=== PATIENT | male | born 1980 | race Caucasian/White ===

== ENCOUNTER → 2020-03-26 10:56 | Outpatient (BNVA) | payer MEDICAID, SELFPAY | PROVIDERS: PCP Internal Medicine; Visit Provider Nurse Practitioner Gerontology ==

== ENCOUNTER → 2021-12-07 13:58 | Outpatient (REF) | payer MEDICAID, SELFPAY | LOC: HO.SL 13:58 | PROVIDERS: PCP Internal Medicine; Visit Provider Internal Medicine | DX: G47.33 Obstructive sleep apnea (adult) (pediatric) (principal) | CPT/HCPCS: 95806 ==

== ENCOUNTER → 2022-04-08 13:00 | Outpatient (BNVA) | payer MEDICAID, SELFPAY | PROVIDERS: PCP Internal Medicine; Visit Provider Nurse Practitioner Family | DX: G47.33 Obstructive sleep apnea (adult) (pediatric) (principal); E11.9 Type 2 diabetes mellitus without complications; I10 Essential (primary) hypertension; E66.01 Morbid (severe) obesity due to excess calories; Z68.41 Body mass index [BMI] 40.0-44.9, adult; Z99.89 Dependence on other enabling machines and devices | CPT/HCPCS: 99202 ==

== ENCOUNTER 2022-04-11 09:07 | Outpatient (REF) | payer MEDICAID, SELFPAY ==
--- NOTE | ~2022-04-11 | CT_ITS ---
EXAMINATION: CT ABDOMEN AND PELVIS WITH CONTRAST CLINICAL INFORMATION: Epigastric pain COMPARISON: Previous CT from 2010 and abdominal ultrasound August 2011 TECHNIQUE: Multidetector volumetric images were obtained from the superior aspect of the liver through the pubic symphysis following administration 85 mL of Omnipaque 350 intravenous contrast. Sagittal and coronal reformatted images were obtained on the technologist's workstation. Oral contrast: Yes This CT examination was performed using dose optimization techniques as appropriate, variously including the following: *Automated exposure control *Adjustment of mA and/or kV according to patient size (this includes techniques or standardized protocols for targeted exams where dose is matched to indication/reason for exam; i.e. extremities or head) *Use of iterative reconstruction technique DLP: 1164 mGy-cm FINDINGS: LUNG BASES: The visualized lung bases are unremarkable. LIVER, GALLBLADDER, AND BILIARY TREE: The liver is normal in size, shape, and attenuation. No focal hepatic lesion or biliary ductal dilatation is present. The gallbladder has been removed. PANCREAS: Unremarkable. SPLEEN: Small calcification suggestive of old granulomatous disease.. ADRENAL GLANDS: Unremarkable. KIDNEYS AND URETERS: The kidneys are normal in size, shape, and attenuation. Question small 1 mm right lower pole renal stone. No hydronephrosis, hydroureter, or perinephric stranding. BLADDER: Unremarkable. GASTROINTESTINAL TRACT: Mild diverticulosis. The small and large bowel are otherwise unremarkable. The appendix is unremarkable. The stomach is unremarkable. ABDOMINAL WALL: Diastasis of the rectus muscles and small umbilical hernia containing fat. LYMPH NODES: Normal. VASCULAR: Unremarkable. PELVIC VISCERA: Unremarkable. OSSEOUS STRUCTURES: Degenerative changes of the spine and hip joints CT/CT abdomen pelvis w IV con IMPRESSION: Mild diverticulosis of the colon. Question small nonobstructing right renal stone. Small umbilical hernia containing fat. Fleischner guidelines were followed.
[2022-04-11] MEDS: iohexoL 350 MG/ML 100 ML INFUS..BTL IV (09:56)
== END 2022-04-11 09:08 | disposition home or self-care (01) ==
LOC: HO.CT 09:07
PROVIDERS: PCP Internal Medicine; Visit Provider Internal Medicine
DX: R10.13 Epigastric pain (principal); K43.9 Ventral hernia without obstruction or gangrene; E11.9 Type 2 diabetes mellitus without complications
CPT/HCPCS: 74177; Q9967

== ENCOUNTER → 2022-05-11 20:30 | Outpatient (REF) | payer MEDICAID, SELFPAY | LOC: HO.SL 20:30 | PROVIDERS: PCP Internal Medicine; Visit Provider Nurse Practitioner Family | DX: G47.33 Obstructive sleep apnea (adult) (pediatric) (principal) | CPT/HCPCS: 95811 ==

== ENCOUNTER → 2022-06-17 10:05 | Outpatient (REF) | payer MEDICAID, SELFPAY ==
--- NOTE | 2022-06-17 10:12 | CA_ITS ---
Transthoracic Echocardiogram Patient (Last, First, Middle): Javier Charles J Gender: Male Date of : 1980 Age: 41 Procedure Date: 06/17/2022 Procedure Type: Transthoracic Echocardiogram Location: OP Height: 187.96 cm Weight: 151.96 kg BSA: 2.71 m2 Heart Rate: bpm BP: 138 / 82 mmHg Guest Attendant: Referring MD: Camryn Ramos CNP Symptoms: G47.31 - Primary central sleep apnea Study Quality: Fair on Apical views ECG Rhythm: Sinus Conclusions: - The left ventricular systolic function is normal. The calculated ejection fraction is 70% by biplane method. - No obvious valvular pathology seen on this study. Findings Procedure Information Contrast agent, definity, is being given per protocol without apparent complications. Left Ventricle Normal left ventricular cavity size. There is mildly increased left ventricular wall thickness. The left ventricular systolic function is normal. The calculated ejection fraction is 70% by biplane method. There is no evidence of regional wall motion abnormalities. Diastolic function is normal for age. Right Ventricle Mildly increased right ventricular cavity size. There is normal right ventricular systolic function. Atria Both atria are normal in size. Aortic Valve The aortic valve was not well visualized. There is no aortic valve stenosis. There is no aortic valve regurgitation. Mitral Valve The mitral valve appears normal. There is no mitral valve regurgitation. There is no mitral valve stenosis. Pulmonic Valve The pulmonic valve is likely normal. Tricuspid Valve There is mild tricuspid valve regurgitation. There is no evidence of pulmonary hypertension. Great Vessels The asc aorta is normal in size. Venous The inferior vena cava is normal in size and collapses greater than 50% with inspiration. Pericardium/Pleural There is no evidence of pericardial effusion. Prior Study Comparison No prior study available for comparison. Recommendations, Care & Conclusions No obvious valvular pathology seen on this study. Measurements 2D Linear Measurements IVSd: 1.27 0.6-0.9/0.6-1.0 cm LVIDd: 4.97 3.9-5.3/4.2-5.9 cm LVIDd Index: 1.83 2.4-3.2/2.2-3.1 cm/m2 LVIDs: 3.37 2.0-3.6 cm LVPWd: 1.21 0.7-1.1 cm Ao Root: 3.30 2.1-3.5 cm LA Diam: 4.90 2.7-3.8/3.0-4.0 cm LAIDs Index: 1.81 1.5-2.3 cm/m2 LV Mass: 302.36 67-162/88-224 g LV Mass Index: 111.57 43-95/49-115 g/m2 LVOT Diam: 2.10 3.0+(-)1.3 cm 2D Systolic Function EF 4C: 71.80 >55% EF 2C: 66.70 >55% EF BiP: 70.00 >55% Mitral Valve MV Pk E: 0.96 MV PK A: 0.90 MV Decel Time: 221.00 E/A: 1.10 E'Lateral: 9.79 E'Medial: 6.85 E/E' Med: 14.10 E/E' Lat: 9.80 PHT: 65.00 MVA PHT: 3.38 Decel [place]: 4.36 Aortic Valve AoV Pk Walker: 1.56 AoV Mn Walker: 0.95 AoV VTI: 0.36 AoV Pk Grad: 10.00 Aov Mn Grad: 5.00 TREY Cont.VTI: 2.81 LVOT LVOT Pk Walker: 1.23 LVOT Mn Walker: 0.86 LVOT VTI: 0.29 LVOT Pk Grad: 6.00 LVOT Mn Grad: 3.00 LVOT Diam: 2.10 LVOT Area: 3.46 Diastolic Function MV Pk E: 0.96 MV Pk A: 0.90 E/A: 1.10 E'Medial: 6.85 E/E' Med: 14.10 E' Laterial: 9.79 E/E' Lat: 9.80 Right Ventricle TAPSE (mm): 28.00 TVS' Walker: 13.00 Tricuspid Valve TR Pk Walker: 2.75 TR Pk Grad: 30.00 RA Press: 3.00 RVSP: 33.00 Great Vessels Aorta Ao Root-2D: 3.30 2.0-3.7 cm Ao Asc: 3.30 2.1-3.4 cm Pulmonary Valve PV Pk Walker: 1.10 Peak PV Grad: 5.00 Updated in Other Vendor System with Status of Final Wade Martinez MD electronically signed on 06/19/2022 12:21:31 PM with status of Final
== END ==
LOC: HO.CARD 10:05
PROVIDERS: PCP Internal Medicine; Visit Provider Nurse Practitioner Family
DX: I10 Essential (primary) hypertension (principal); E66.01 Morbid (severe) obesity due to excess calories
CPT/HCPCS: 93306; Q9957

== ENCOUNTER → 2022-07-12 19:30 | Outpatient (REF) | payer MEDICAID, SELFPAY | LOC: HO.SL 19:30 | PROVIDERS: Visit Provider Nurse Practitioner Family | DX: G47.33 Obstructive sleep apnea (adult) (pediatric) (principal); G47.31 Primary central sleep apnea | CPT/HCPCS: 95810 ==

== ENCOUNTER 2022-08-17 09:45 | Day surgery (SDC) | payer MEDICAID, SELFPAY ==
--- NOTE | 2022-08-16 12:15 | HO.ANESPROP2 ---
Documented by User: Savanah Gottlieb NP 08/16/22 12:15 HPI - Anesthesia Eval Consult details Narrative: 41yo M for Upper Endoscopy PMFSH Active Problems Active Problems: All Active Problems (Updated 08/16/22 @ 12:01 by Alysa Sosa, MARILUZ) ARMANDO on CPAP (Acute) Daytime sleepiness (Acute) Central sleep apnea (Acute) ARMANDO (obstructive sleep apnea) (Acute) Controlled diabetes mellitus without complication, without long-term current use of insulin (Acute) Essential hypertension (Acute) Morbid obesity due to excess calories (Acute) Hyperlipidemia LDL goal <100 (Acute) Past Medical History Medical History (Updated 08/16/22 @ 12:01 by Alysa Sosa RN) Arthritis Asthma Back pain Controlled diabetes mellitus without complication, without long-term current use of insulin Degenerative joint disease Essential hypertension HTN (hypertension) Hyperlipidemia LDL goal <100 Kidney stone Morbid obesity due to excess calories RLS (restless legs syndrome) Sleep apnea treated with continuous positive airway pressure (CPAP) Family History Family History Father No problems noted. Mother Diabetes Paternal Grandfather Diabetes Paternal Uncle Diabetes Surgical History Surgical History History of facial surgery Hx of appendectomy Hx of cholecystectomy Hx of wisdom tooth extraction Social History Social History (Updated 04/08/22 @ 13:08 by ZINA Rouse) Household Members: Spouse, Children and Other Alcohol intake: current Patient Tobacco Use Status: Current everyday Tobacco user Tobacco use type: Cigarette Cigarettes Per Day: 10 Date Education Initiated: 08/17/22 Use of substances other than those prescribed or required for medical reasons: Yes Substance Use Type: Marijuana Are you DNR?: No Advance Directives: No Advance Directives Information Provided: Yes Meds Allergies Allergy/AdvReac Type Severity Reaction Status Date / Time codeine [CODEINE] Allergy Intermediate HIVES Unverified 04/08/22 13:06 morphine [MORPHINE] Allergy Intermediate HIVES Unverified 04/08/22 13:06 latex [Latex] Allergy Mild RASH Unverified 04/08/22 13:06 aspirin [Aspirin] Allergy Unknown UNKN Unverified 04/08/22 13:06 bee pollen [BEE STINGS] Allergy Unknown SWELLING Unverified 04/08/22 13:06 Shellfish Allergy Unknown Hives Uncoded 04/08/22 13:06 tylenol Allergy Unknown stomach Uncoded 04/08/22 13:06 ache Home Medications Medication Instructions Recorded Confirmed Last Taken Type albuterol sulfate 2 mg/5 mL oral See Rx Instructions PO Q6-8H PRN 03/26/20 03/26/20 Unknown History syrup shortness of breath or wheezing blood sugar diagnostic (FreeStyle #10 ea 03/26/20 03/26/20 Unknown History Lite Strips) blood-glucose meter (FreeStyle #1 ea 03/26/20 03/26/20 Unknown History Lite Meter kit) clonazepam 2 mg tablet (Klonopin) 2 mg PO BID 03/26/20 03/26/20 Unknown History fluticasone 500 mcg-salmeterol 50 1 inh inhalation BID 03/26/20 03/26/20 Unknown History mcg/dose blistr powdr for inhalation (Advair Diskus) lancets 28 gauge (FreeStyle #100 ea 03/26/20 03/26/20 Unknown History Lancets) lisdexamfetamine 60 mg capsule 60 mg PO QAM 03/26/20 03/26/20 Unknown History (Vyvanse) lisinopril 10 mg tablet 10 mg PO DAILY 03/26/20 03/26/20 Unknown History montelukast 10 mg tablet 10 mg PO DAILY 03/26/20 03/26/20 Unknown History (Singulair) montelukast 10 mg tablet 10 mg PO DAILY 03/26/20 03/26/20 Unknown History (Singulair) oxycodone 80 mg tablet,crush See Rx Instructions PO Q12H PRN 03/26/20 03/26/20 Unknown History resistant,extended release 12 hr Pain (OxyContin) tiotropium bromide 18 mcg capsule 1 cap inhalation DAILY 03/26/20 03/26/20 Unknown History with inhalation device (Spiriva with HandiHaler) albuterol sulfate 90 mcg/actuation 2 puff inhalation Q4H 08/16/22 08/16/22 Unknown History aerosol inhaler (Ventolin HFA) dulaglutide 0.75 mg/0.5 mL mg subcut QWEEK 08/16/22 Unknown History subcutaneous pen injector (Trulicity) guanfacine 1 mg tablet,extended 1 mg PO QAM anxiety 08/16/22 08/16/22 Unknown History release 24 hr hydroxyzine HCl 50 mg tablet mg PO 08/16/22 Unknown History lisdexamfetamine 60 mg capsule 60 mg PO QAM 08/16/22 08/16/22 Unknown History (Vyvanse) mirtazapine 15 mg tablet 7.5 - 15 mg PO BEDTIME PRN insomnia 08/16/22 08/16/22 Unknown History oxycodone 30 mg tablet 30 mg PO Q12H PRN severe pain 08/16/22 08/16/22 Unknown History Exam Exam Date and Time: August 16, 2022 1215 Narrative Narrative: ECHO 2022 Conclusions: - The left ventricular systolic function is normal.? The ? calculated ejection fraction is 70% by biplane method. ? - No obvious valvular pathology seen on this study.? Assessment and Plan Assessment Anesthesia Assessment: Chart Reviewed Documented by User: Melida Vasquez MD 08/17/22 10:34 HPI - Anesthesia Eval Current symptoms: Reports dyspnea How are your symptoms today: very good Frequency of symptoms: less than or equal to 2 days per week GERI use for symptom control: less than or equal to 2 days/week Activity limitation: none Exacerbations: 0-1/year requiring oral steroids Seasonal pattern: Yes Seasonal pattern: winter Asthma triggers: Reports infection Alleviating factors: Reports inhaler Associated symptoms: Reports dyspnea and excessive phlegm production Exercise oximetry: No Overnight pulse oximetry: No PMFSH Past Medical History Medical History (Updated 08/16/22 @ 12:01 by Alysa Sosa RN) Arthritis Asthma Back pain Controlled diabetes mellitus without complication, without long-term current use of insulin Degenerative joint disease Essential hypertension HTN (hypertension) Hyperlipidemia LDL goal <100 Kidney stone Morbid obesity due to excess calories RLS (restless legs syndrome) Sleep apnea treated with continuous positive airway pressure (CPAP) Family History Family History Father No problems noted. Mother Diabetes Paternal Grandfather Diabetes Paternal Uncle Diabetes Surgical History Surgical History History of facial surgery Hx of appendectomy Hx of cholecystectomy Hx of wisdom tooth extraction Social History Social History (Updated 04/08/22 @ 13:08 by ZINA Rouse) Household Members: Spouse, Children and Other Alcohol intake: current Patient Tobacco Use Status: Current everyday Tobacco user Tobacco use type: Cigarette Cigarettes Per Day: 10 Date Education Initiated: 08/17/22 Use of substances other than those prescribed or required for medical reasons: Yes Substance Use Type: Marijuana Are you DNR?: No Advance Directives: No Advance Directives Information Provided: Yes Meds Allergies Allergy/AdvReac Type Severity Reaction Status Date / Time codeine [CODEINE] Allergy Intermediate HIVES Unverified 04/08/22 13:06 morphine [MORPHINE] Allergy Intermediate HIVES Unverified 04/08/22 13:06 latex [Latex] Allergy Mild RASH Unverified 04/08/22 13:06 aspirin [Aspirin] Allergy Unknown UNKN Unverified 04/08/22 13:06 bee pollen [BEE STINGS] Allergy Unknown SWELLING Unverified 04/08/22 13:06 Shellfish Allergy Unknown Hives Uncoded 04/08/22 13:06 tylenol Allergy Unknown stomach Uncoded 04/08/22 13:06 ache Home Medications Medication Instructions Recorded Confirmed Last Taken Type albuterol sulfate 2 mg/5 mL oral See Rx Instructions PO Q6-8H PRN 03/26/20 03/26/20 Unknown History syrup shortness of breath or wheezing blood sugar diagnostic (FreeStyle #10 ea 03/26/20 03/26/20 Unknown History Lite Strips) blood-glucose meter (FreeStyle #1 ea 03/26/20 03/26/20 Unknown History Lite Meter kit) clonazepam 2 mg tablet (Klonopin) 2 mg PO BID 03/26/20 03/26/20 Unknown History fluticasone 500 mcg-salmeterol 50 1 inh inhalation BID 03/26/20 03/26/20 Unknown History mcg/dose blistr powdr for inhalation (Advair Diskus) lancets 28 gauge (FreeStyle #100 ea 03/26/20 03/26/20 Unknown History Lancets) lisdexamfetamine 60 mg capsule 60 mg PO QAM 03/26/20 03/26/20 Unknown History (Vyvanse) lisinopril 10 mg tablet 10 mg PO DAILY 03/26/20 03/26/20 Unknown History montelukast 10 mg tablet 10 mg PO DAILY 03/26/20 03/26/20 Unknown History (Singulair) montelukast 10 mg tablet 10 mg PO DAILY 03/26/20 03/26/20 Unknown History (Singulair) oxycodone 80 mg tablet,crush See Rx Instructions PO Q12H PRN 03/26/20 03/26/20 Unknown History resistant,extended release 12 hr Pain (OxyContin) tiotropium bromide 18 mcg capsule 1 cap inhalation DAILY 03/26/20 03/26/20 Unknown History with inhalation device (Spiriva with HandiHaler) albuterol sulfate 90 mcg/actuation 2 puff inhalation Q4H 08/16/22 08/16/22 Unknown History aerosol inhaler (Ventolin HFA) dulaglutide 0.75 mg/0.5 mL mg subcut QWEEK 08/16/22 Unknown History subcutaneous pen injector (Trulicity) guanfacine 1 mg tablet,extended 1 mg PO QAM anxiety 08/16/22 08/16/22 Unknown History release 24 hr hydroxyzine HCl 50 mg tablet mg PO 08/16/22 Unknown History lisdexamfetamine 60 mg capsule 60 mg PO QAM 08/16/22 08/16/22 Unknown History (Vyvanse) mirtazapine 15 mg tablet 7.5 - 15 mg PO BEDTIME PRN insomnia 08/16/22 08/16/22 Unknown History oxycodone 30 mg tablet 30 mg PO Q12H PRN severe pain 08/16/22 08/16/22 Unknown History
[2022-08-17 10:07] VITALS: BP 121/63; PULSE 78; RESP 20; TEMP 36.1; O2SAT 97; BMI 41.1
[2022-08-17 10:19] LABS: Glucose, Whole Blood 128 mg/dL (60-115)
[2022-08-17 11:17] VITALS: BP 92/54; PULSE 73; RESP 16; TEMP 36.6; O2SAT 99
--- NOTE | 2022-08-17 11:22 | P.BOP_ITS ---
Brief Operative Note Date of Service: 08/17/22 Pre-op diagnosis: GERD Post-op diagnosis: other (Hiatal hernia, R/O Valladares's, Pyloric channel erosion) Procedure: EGD with biopsies Surgeon: Chai Reyna Anesthesia: MAC Was an Aircraft Engine Mechanic Supervisor used for this Procedure?: No Estimated blood loss (mL): 2.0 Pathology: other (A. EG Junction at 40cm B.Gastric antrum) Condition: stable Disposition: PACU
[2022-08-17 11:31] VITALS: BP 113/66; PULSE 78; RESP 16; O2SAT 95
[2022-08-17 11:45] VITALS: BP 115/66; PULSE 64; RESP 16; TEMP 36.6; O2SAT 96
--- NOTE | 2022-08-17 12:00 | OP_ITS ---
DATE OF SERVICE: 08/17/2022 SURGEON: Chai Reyna MD INDICATIONS: The patient presents for evaluation of chronic gastroesophageal reflux. Full consent has been obtained from him for this, including risks of bleeding and perforation. PREOPERATIVE DIAGNOSIS: Chronic gastroesophageal reflux. POSTOPERATIVE DIAGNOSIS: PROCEDURE PERFORMED: Esophagogastroduodenoscopy with biopsies. ESTIMATED BLOOD LOSS: COMPLICATIONS: ANESTHESIA: Monitored anesthesia care. ASSISTANTS: SPECIMENS: POSTOPERATIVE DIAGNOSES: Chronic gastroesophageal reflux, hiatal hernia, rule out Valladares's esophagus, pyloric channel erosion, gastritis. DESCRIPTION OF PROCEDURE: The patient was placed in the left lateral decubitus position. The Olympus video gastroscope was passed in the posterior oropharynx and upper esophagus under direct vision. The scope was passed slowly to the distal esophagus. The gastroesophageal junction appeared at 40 cm. This area was slightly irregular consistent with reflux and a possibly small, less than 1 cm area of Valladares's mucosa. There was no evidence of any lesions nor inflammation. The scope entered the stomach and there was a small hiatal hernia. The scope was advanced to pylorus, and the duodenum was cannulated to the descending portion. The duodenum including the bulb appeared normal without mass or ulceration. The pyloric channel had a small approximately 4 or 5 mm erosion. The scope was withdrawn back in the stomach. The gastric antrum had some areas of erythema, but no erosions or ulcerations. There was good peristalsis. Biopsies were obtained from the antrum. The scope was retroflexed visualizing the proximal stomach carefully, which appeared normal, without any sign of mass or ulceration. The scope was straightened and withdrawn back into the esophagus. Biopsies were obtained at the EG junction at 40 cm. Proximal to this, the esophageal mucosa appeared normal. The scope was withdrawn from the patient. He tolerated the procedure well and was returned to recovery area in stable condition. IMPRESSION: 1. Hiatal hernia, gastroesophageal reflux, rule out Valladares's esophagus. 2. Pyloric channel erosion. 3. Mild gastritis, rule out Helicobacter pylori. PLAN: The results of the biopsies will be checked. He will continue his daily omeprazole as he does report that is working well for his reflux symptoms. He was advised not to use any aspirin or NSAIDs for least 1 week. If there is evidence of Valladares's esophagus without dysplasia, I would recommend a repeat upper endoscopy in 3 years. He was advised to see me in the fall for a followup visit as well. MD KOBY Chávez/SAURABH / [id number] MTDD
== END 2022-08-17 12:51 | disposition home or self-care (01) ==
PROVIDERS: PCP Internal Medicine; Visit Provider Internal Medicine
PROC: 0DJ08ZZ Inspection of Upper Intestinal Tract, Via Natural or Artificial Opening Endoscopic (ICD-10-PCS; CPT 43235; principal; 2022-08-17 10:30)
DX: K21.9 Gastro-esophageal reflux disease without esophagitis (principal); K29.50 Unspecified chronic gastritis without bleeding; B96.81 Helicobacter pylori [H. pylori] as the cause of diseases classified elsewhere; K25.9 Gastric ulcer, unspecified as acute or chronic, without hemorrhage or perforation; K44.9 Diaphragmatic hernia without obstruction or gangrene; I10 Essential (primary) hypertension; E11.9 Type 2 diabetes mellitus without complications; G47.33 Obstructive sleep apnea (adult) (pediatric); J45.909 Unspecified asthma, uncomplicated; Z79.51 Long term (current) use of inhaled steroids; Z79.85 Long-term (current) use of injectable non-insulin antidiabetic drugs; Z79.899 Other long term (current) drug therapy; Z99.89 Dependence on other enabling machines and devices; Z88.8 Allergy status to other drugs, medicaments and biological substances; Z91.040 Latex allergy status; Z87.442 Personal history of urinary calculi; F17.210 Nicotine dependence, cigarettes, uncomplicated
CPT/HCPCS: 43239; 82947; 88305; 88342

== ENCOUNTER 2022-11-01 11:21 | Outpatient (AMB) | payer MEDICAID, SELFPAY ==
--- NOTE | 2022-11-01 11:33 | MHC.OFFVIS ---
Intake Vital Signs 11/01/22 11:38 Height 6 ft 2 in Weight 354 lb BMI 45.4 BP 108/74 Blood Pressure Location Rt brachial Position Sitting Pulse 74 Pulse Source Pulse Oximeter Pulse Oximetry (%) 97 Oxygen Delivery Method Room Air Intake Visit Reasons: 3 mnts f/u for ARMANDO - Confirmed Intake Note: Patient presents for 3 month follow up. Patient states it's a follow up Allergies codeine [CODEINE] Allergy (Intermediate, Unverified 11/01/22 11:39) HIVES morphine [MORPHINE] Allergy (Intermediate, Unverified 11/01/22 11:39) HIVES latex [Latex] Allergy (Mild, Unverified 11/01/22 11:39) RASH aspirin [Aspirin] Allergy (Unknown, Unverified 11/01/22 11:39) UNKN bee pollen [BEE STINGS] Allergy (Unknown, Unverified 11/01/22 11:39) SWELLING Shellfish Allergy (Unknown, Uncoded 11/01/22 11:39) Hives tylenol Allergy (Unknown, Uncoded 11/01/22 11:39) stomach ache HPI HPI Comments History of Present Illness Details 41 y/o male patient presents for follow up of sleep study. Pt underwent split night sleep study. The baseline portion of the study was significant for severe degree of sleep apnea, mostly central events with hypopneas. The AHI was 50/hr and oxygen wale was 80%. He was trialed on CPAP 6-14cm H2O and BiPAP 10/5 to 13/8. The obstructive events were eliminated, oxygenation improved but there were persistent central events. Pt also trialed ASV with EPAP 5-8cmH2O, max PS 15 and min PS 3. Pt tolerated ASV EPAP 8cmH2O with max Ps 15 and min PS 3. The compliance and therapy response (09/17/22-10/31/22) reviewed. The usage days 80% and the average usage hours 5 hours. The AHI was 1.1/hr. Pt reports he sleeps better, 4-6 hrs and daytime sleepiness has improved a lot. No more doze off and has more energy. He does not need to take a nap. However, the mask is uncomfortable, feels too small, and requested new mask. [facility] Medical History (Updated 08/16/22 @ 12:01 by Alysa Ronchi, RN) Arthritis Asthma Back pain Controlled diabetes mellitus without complication, without long-term current use of insulin Degenerative joint disease Essential hypertension HTN (hypertension) Hyperlipidemia LDL goal <100 Kidney stone Morbid obesity due to excess calories RLS (restless legs syndrome) Sleep apnea treated with continuous positive airway pressure (CPAP) Surgical History History of facial surgery Hx of appendectomy Hx of cholecystectomy Hx of wisdom tooth extraction Family History Father No problems noted. Mother Diabetes Paternal Grandfather Diabetes Paternal Uncle Diabetes Social History Household Members: Spouse, Children and Other Alcohol intake: current Patient Tobacco Use Status: Current everyday Tobacco user Tobacco use type: Cigarette Cigarettes Per Day: 10 Substance Use Type: Marijuana Review of Systems Const All systems reviewed & are unremarkable except as noted in HPI and below ENT Reports Normal hearing present Neuro Reports Normal hearing present Physical Exam Vital Signs: Last Vital Signs Pulse 74 11/01/22 11:38 BP 108/74 11/01/22 11:38 Pulse Ox 97 11/01/22 11:38 Oxygen Delivery Method Room Air 11/01/22 11:38 BMI result Body Mass Index 45.4 Const General: cooperative Nutritional Appearance: obese Orientation/consciousness: patient oriented x3 Limitations: ambulation with cane Neck Neck: Yes full ROM and Yes supple Resp Effort & Inspection: normal respiratory effort and able to speak in complete sentences Neuro General: patient oriented x3 Cranial nerves: Yes Normal facial strength present, Yes Midline tongue present, Yes Symmetric palate elevation present, Yes Normal hearing present, Yes Ability to bilaterally rotate head present and Yes Ability to bilaterally elevate shoulders present Cognition (Neuro): normal cognition Gait exam (Neuro): Assistive device used Psych Appearance: grossly normal Mental Status: mental status grossly normal Affect: normal affect Assessment & Plan Assessment & Plan (1) Morbid obesity due to excess calories: Code(s): E66.01 - Morbid (severe) obesity due to excess calories (2) Daytime sleepiness: Code(s): R40.0 - Somnolence (3) Central sleep apnea: Comment: Severe degree of sleep apnea-mostly central events with hypopneas. Code(s): G47.31 - Primary central sleep apnea (4) ARMANDO (obstructive sleep apnea): Code(s): G47.33 - Obstructive sleep apnea (adult) (pediatric) Plan Advised patient to continue to use ASV at 8cmH2O as patient experiences good clinical effects. Sleep quality and daytime sleepiness has improved. Wt reduction advised. Coding Level of Care Code Est Pt Level 3 (39783) Diagnoses Morbid obesity due to excess calories E66.01 Daytime sleepiness R40.0 Central sleep apnea G47.31 ARMANDO (obstructive sleep apnea) G47.33
[2022-11-01 11:38] VITALS: BP 108/74; PULSE 74; O2SAT 97; BMI 45.4
== END 2022-11-01 12:01 | disposition home or self-care (01) ==
LOC: HO.HSMC 11:21
PROVIDERS: PCP Internal Medicine; Visit Provider Nurse Practitioner Family
DX: E66.01 Morbid (severe) obesity due to excess calories (principal); R40.0 Somnolence; G47.31 Primary central sleep apnea; G47.33 Obstructive sleep apnea (adult) (pediatric)
CPT/HCPCS: 99213

== ENCOUNTER → 2022-11-01 11:21 | Outpatient (BNVA) | payer MEDICAID, SELFPAY | PROVIDERS: PCP Internal Medicine; Visit Provider Nurse Practitioner Family | DX: G47.33 Obstructive sleep apnea (adult) (pediatric) (principal); G47.31 Primary central sleep apnea; R40.0 Somnolence; E66.01 Morbid (severe) obesity due to excess calories; Z68.42 Body mass index [BMI] 45.0-49.9, adult | CPT/HCPCS: 99212 ==

== ENCOUNTER 2023-03-13 13:11 | Outpatient (REF) | payer MEDICAID, SELFPAY ==
[2023-03-13 14:24] LABS: B Type Natriuretic Peptide 46 pg/mL (<100)
[2023-03-13 14:38] LABS: Alanine Aminotransferase 23 U/L (0-40); Alkaline Phosphatase 109 U/L (39-117); Anion Gap 13 (12-20); Aspartate Amino Transferase 19 U/L (5-37); Bilirubin Direct 0.2 mg/dL (0.0-0.5); Bilirubin Total 0.4 mg/dL (0.0-1.0); Blood Urea Nitrogen 12 mg/dL (9-16); Calcium 9.3 mg/dL (8.4-10.2); Carbon Dioxide 29 mmol/L (22-29); Chloride 103 mmol/L (96-108); Estimated Glomerular Filt Rate > 60; Glucose Random 97 mg/dL (60-115); Potassium 4.1 mmol/L (3.3-5.1); Sodium 141 mmol/L (135-145); Total Protein 7.4 g/dL (6.5-8.0)
[2023-03-13 14:40] LABS: TSH reflex Free T4 1.33 uIU/mL (0.32-4.0)
== END 2023-03-13 13:12 | disposition home or self-care (01) ==
LOC: HO.LAB 13:11
PROVIDERS: PCP Internal Medicine; Visit Provider Internal Medicine
DX: R60.0 Localized edema (principal); E11.9 Type 2 diabetes mellitus without complications
CPT/HCPCS: 36415; 80048; 80076; 83880; 84443

== ENCOUNTER → 2023-03-23 13:16 | Outpatient (REF) | payer MEDICAID, SELFPAY ==
--- NOTE | 2023-03-23 13:22 | CA_ITS ---
Transthoracic Echocardiogram Patient (Last, First, Middle): Javier Charles J Gender: Male Date of : 1980 Age: 42 Procedure Date: 03/23/2023 Procedure Type: Transthoracic Echocardiogram Location: OP Height: 187.96 cm Weight: 147.87 kg BSA: 2.67 m2 Heart Rate: bpm BP: 140 / 88 mmHg Patient Care Technician: CALI Referring MD: Benji Hugo MD Rivet Hole Puncher: Tj Fernandez MD Symptoms: B/L EDEMA ANKLE Study Quality: Technically Difficult ECG Rhythm: Sinus Conclusions: - 1. Technically limited study despite use of contrast agent 2. Normal LV ejection fraction 65-70% with mild LVH 3. Limited visualization of cardiac valves with normal cardiac valvular Doppler 4. Normal measured RV systolic pressure and normal right atrial pressures Findings Procedure Information Contrast agent, definity, is being given per protocol without apparent complications. Left Ventricle Normal left ventricular size and systolic function. There is mildly increased left ventricular wall thickness. The visually estimated ejection fraction is between 65-70%. Spectral Doppler is indicative of a normal filling pattern. Right Ventricle The right ventricle was not well visualized. Atria The left atrium was not well visualized. Interatrial shunt cannot be excluded. The right atrium was not well visualized. Aortic Valve The aortic valve was not well visualized. There is no aortic valve stenosis. There is no aortic valve regurgitation. Mitral Valve The mitral valve was not well visualized. There is trace mitral valve regurgitation. There is no mitral valve stenosis. Pulmonic Valve The pulmonic valve was not well visualized. Tricuspid Valve The tricuspid valve was not well visualized. Normal right atrial pressure. There is no evidence of pulmonary hypertension. Great Vessels The aorta was not well visualized. The pulmonary artery was not well visualized. There is mild dilatation of the ascending aorta measuring 4.00 cm. Venous The inferior vena cava is normal in size and collapses greater than 50% with inspiration. Pericardium/Pleural The pericardium was not well visualized. Prior Study Comparison No significant change compared to prior study dated: 06/17/2022. Measurements 2D Linear Measurements IVSd: 1.27 0.6-0.9/0.6-1.0 cm LVIDd: 5.82 3.9-5.3/4.2-5.9 cm LVIDd Index: 2.18 2.4-3.2/2.2-3.1 cm/m2 LVIDs: 3.54 2.0-3.6 cm LVPWd: 1.22 0.7-1.1 cm LV Mass: 391.79 67-162/88-224 g LV Mass Index: 146.74 43-95/49-115 g/m2 LVOT Diam: 2.50 3.0+(-)1.3 cm 2D Systolic Function EF 4C: 59.10 >55% EF 2C: 77.70 >55% EF BiP: 70.60 >55% Mitral Valve MV Pk E: 0.97 MV PK A: 0.87 MV Decel Time: 217.00 E/A: 1.10 E'Lateral: 10.00 E'Medial: 8.38 E/E' Med: 11.60 E/E' Lat: 9.70 PHT: 64.00 MVA PHT: 3.44 Decel [place]: 4.46 Aortic Valve AoV Pk Walker: 1.41 AoV Mn Walker: 0.96 AoV VTI: 0.33 AoV Pk Grad: 8.00 Aov Mn Grad: 4.00 TREY Cont.VTI: 3.78 LVOT LVOT Pk Walker: 1.11 LVOT Mn Walker: 0.68 LVOT VTI: 0.25 LVOT Pk Grad: 5.00 LVOT Mn Grad: 2.00 LVOT Diam: 2.50 LVOT Area: 4.91 Diastolic Function MV Pk E: 0.97 MV Pk A: 0.87 E/A: 1.10 E'Medial: 8.38 E/E' Med: 11.60 E' Laterial: 10.00 E/E' Lat: 9.70 Right Ventricle TAPSE (mm): 31.00 TVS' Walker: 13.40 Tricuspid Valve TR Pk Walker: 2.67 TR Pk Grad: 29.00 RA Press: 3.00 RVSP: 32.00 Great Vessels Aorta Sinus of Valsalva: 3.66 2.0-3.[address] [place]: 2.63 1.7-3.4 cm Ao Asc: 4.00 2.1-3.4 cm Updated in Other Vendor System with Status of Final Tj Fernandez MD electronically signed on 03/23/2023 2:55:24 PM with status of Final
== END ==
LOC: HO.CARD 13:16
PROVIDERS: PCP Internal Medicine; Visit Provider Internal Medicine
DX: E11.9 Type 2 diabetes mellitus without complications (principal)
CPT/HCPCS: 93306; Q9957

== ENCOUNTER → 2023-03-23 13:22 | Outpatient (BNV) | payer MEDICAID, SELFPAY | PROVIDERS: PCP Internal Medicine; Visit Provider Internal Medicine Cardiovascular Disease | DX: R60.0 Localized edema (principal) | CPT/HCPCS: 93306 ==

== ENCOUNTER 2023-10-02 11:17 | Outpatient (REF) | payer MEDICAID, SELFPAY ==
[2023-10-02 13:37] LABS: Cholesterol 212 mg/dL (<200); HDL Cholesterol 47 mg/dL (>40); LDL Cholesterol Calculated 126 mg/dL (<100); Triglycerides 197 mg/dL (<150)
[2023-10-02 14:20] LABS: Reflex LDLD? No
== END 2023-10-02 11:18 | disposition home or self-care (01) ==
LOC: HO.HHCL 11:17
PROVIDERS: Visit Provider Internal Medicine
DX: E78.2 Mixed hyperlipidemia (principal)
CPT/HCPCS: 36415; 80061

== ENCOUNTER 2024-04-30 15:51 | Outpatient (REF) | payer MEDICAID, SELFPAY ==
[2024-04-30 18:46] LABS: Alanine Aminotransferase 13 U/L (0-40); Alkaline Phosphatase 93 U/L (39-117); Anion Gap 13 (12-20); Aspartate Amino Transferase 20 U/L (5-37); Bilirubin Total 0.4 mg/dL (0.0-1.0); Blood Urea Nitrogen 22 mg/dL (9-16); Carbon Dioxide 25 mmol/L (22-29); Chloride 107 mmol/L (96-108); Cholesterol 198 mg/dL (<200); Estimated Glomerular Filt Rate > 60; Glucose Random 121 mg/dL (60-115); HDL Cholesterol 46 mg/dL (>40); LDL Cholesterol Calculated 124 mg/dL (<100); Potassium 5.2 mmol/L (3.3-5.1); Sodium 140 mmol/L (135-145); Total Protein 7.9 g/dL (6.5-8.0); Triglycerides 141 mg/dL (<150)
[2024-04-30 19:09] LABS: Creatinine Urine 144.57 mg/dL; Microalbum/Creatinine Ratio Ur 53.9 ug/mg cr (<30)
--- OUTSIDE RECORDS SUMMARY | 2024-04-30 19:50 | XMS_ITS | Encounter Summary ---
Author Organization [employer] Address [address] [facility] 7 [place] [address] Care Team Providers Care Babbitter Name Role Phone Benji Hurtado MD Primary Care Provide r Reason for Visit * Reason Onset Date Comments Med Refill 09/06/2022 Encounter Details Date Type Department Care Team (Late st Contact Info) Description 09/06/2022 Telephone [facility] MED[facility]INE [address] [place] [address] Benji Hurtado MD [address] [place] [address] Med Refill Social History Tobacco Use Types Packs/Day Years Used Date Smoking Tobacco: Every Day Cigarettes Passive Smoke Exposure: Current Smokeless Tobacco: Never Depression Answer Date Recorded Patient Health Questionnaire-9 Score 9 03/22/2022 Depression Answer Date Recorded Patient Health Questionnaire-2 Score 4 03/22/2022 Sex and Gender Information Value Date Recorded Sex Assigned at Male 12/27/2021 10:14 AM EDT Legal Sex Male 10:14 AM EDT Gender Identity Male 12/27/2021 10:14 AM EDT Sexual Orientation Straight 12/27/2021 10 :14 AM EDT COVID-19 Exposure Response Date Recorded In the last 10 days, have yo u been in contact with someone who was confirmed or suspected to have Coronavirus/COVID-19? No / Unsure 08/25/2022 2:05 PM EDT documented as of this encounter Miscellaneous Notes * Telephone Encounter - Chasidy Rodriguez - 09/06/2022 1:41 PM EDT Tc from pt requesting medication refill on oxyCODONE ER (OxyCONTIN) 60 MG 12 hr tablet documented in this encounter Plan of Treatment Upcoming Encounters Date Type Department Care Team (Late st Contact Info) Description 06/10/2024 1:30 PM EDT Telemedicine [facility] MED & PEDS [address] [place] [address] Isabelle Dia, RN [address] [place] [address] 08/01/2024 2:00 PM EDT Office Visit [facility] [address] [place] [address] Benji Hurtado MD [address] [place] [address] documented as of this encounter Visit Diagnoses Not on filedocumented in this encounter Additional Health Concerns Assessment Noted Time PHQ-9 Depression Total Score: 9 03/22/19 23 1:26 PM EST documented as of this encounter Care Teams Babbitter Relationship Specialty Start Date End Date Benji Hurtado MD [address] [place], [place] [id number] PCP - General Internal Medicine 10/10/13 documented as of this encounter
--- OUTSIDE RECORDS SUMMARY | 2024-04-30 19:50 | XMS_ITS | Encounter Summary ---
Author Organization [employer] Address [address] [facility] 7t [place] [address] Care Team Providers Care Atomic Spectroscopist Name Role Phone Benji Hurtado MD Primary Care Provide r Reason for Visit * Reason Onset Date Comments Medication Question 03/14/2024 Encounter Details Date Type Department Care Team ([facility] st Contact Info) Description 03/14/2024 Telephone [facility]INE [address] [place] [address] Benji Hurtado MD [address] [place] [address] Medication Question Social History Tobacco Use Types Packs/Day Years Used Date Smoking Tobacco: Every Day Cigarettes Passive Smoke Exposure: Current Smokeless Tobacco: Never Depression Answer Date Recorded Patient Health Questionnaire-9 Score 7 06/01/2023 Patient Health Questionnaire-9 Score 7 06/01/2023 Last PHQ-9: Questionnaire Data Not on file 0 06/01/2023 Housing Stability Answer Date Recorded What is your housing situation today? I have joel ray 06/01/[address] you li ve. Do you have problems with any of the following? None of the above 06/01/2023 Food Insecurity Answer Date Recorded Within the past 12 months, y ou worried that your food would run out before you got money to buy more: Never True 06/01/2023 Within the past 12 months,th e food you bought just didn't last and you didn't have enough money to get more: Never True 05/2023 Transportation Answer Date Recorded In the past 12 months, has l ack of transportation kept you from medical appts, meetings, work or from getting things needed for daily living? No 06/01/2023 Utilities Answer Date Recorded In the past 12 months, has t he electric, gas, oil or water company threatened to shut off services in your home? No 06/01/2023 Depression Answer Date Recorded Patient Health Questionnaire-2 Score 2 06/01/2023 Sex and Gender Information Value Date Recorded Sex Assigned at Male 12/27/2021 10:14 AM EDT Legal Sex Male 10:14 AM EDT Gender Identity Male 12/27/2021 10:14 AM EDT Sexual Orientation Straight 12/27/2021 10 :14 AM EDT documented as of this encounter Miscellaneous Notes * Telephone Encounter - Vanessa Pizano - 03/14/2024 11:44 AM EST Tc from pt requesting status of oxyCODONE ER (OxyCONTIN) 60 MG 12 hr tablet PA. documented in this encounter Plan of Treatment Upcoming Encounters Date Type Department Care Team (Late st Contact Info) Description 06/10/2024 1:30 PM EDT Telemedicine [facility] MED [facility] PEDS [address] [place] [address] Isabelle Dia, RN [address] [place] [address] 08/01/2024 2:00 PM EDT Office Visit [facility] [address] [place] [address] Benji Hurtado MD [address] [place] [address] documented as of this encounter Visit Diagnoses Not on filedocumented in this encounter Additional Health Concerns Assessment Noted Time PHQ-9 Depression Total Score: 7 06/01/19 24 1:38 PM EDT documented as of this encounter Care Teams Atomic Spectroscopist Relationship Specialty Start Date End Date Benji Hurtado MD [address] [place] [id number] PCP - General Internal Medicine 10/10/13 documented as of this encounter
--- OUTSIDE RECORDS SUMMARY | 2024-04-30 19:50 | XMS_ITS | Encounter Summary ---
Author Organization [employer] Address [address] 7[address] [place] [address] Care Team Providers Care Business Loan Processor Name Role Phone Benji Hurtado MD Primary Care Provide r Reason for Visit * Reason Onset Date Comments PA 09/21/2023 Encounter Details Date Type Department Care Team ([facility] st Contact Info) Description 09/21/2023 Telephone [facility] [address] [place] [address] Benji Hurtado MD [address] [place] [address] PA Social History Tobacco Use Types Packs/Day Years [...] encounter Miscellaneous Notes * Telephone Encounter - Armando Kirkpatrick - 09/22/2023 10:27 AM EDT Tc from pt requesting status and informing he has no meds * Telephone Encounter - Luiza Duffy RN - 09/21/2023 4:01 PM EDT Pt reports already spoke to his insurance company regarding needing PA for medication constantly (needed PA last month too) and they said it's the way we are sending PA paperwork. Need to specify duration for medication. Pt completely out of meds. * Telephone Encounter - Esther Reis - 09/21/2023 10:38 AM EDT Tc from pt calling to inform a PA for medication oxyCODONE ER (OxyCONTIN) 60 MG 12 hr tablet is needed. documented in this encounter Plan of Treatment Upcoming Encounters Date Type Department Care Team ([facility] st Contact Info) Description 06/10/2024 1:30 PM EDT Telemedicine [facility] MED & PEDS [address] [place] [address] Isabelle Dia, RN [address] [place] [address] 08/01/2024 2:00 PM EDT [facility] [address] [place] [address] Benji Hurtado MD [address] [place] [address] documented as of this encounter Visit Diagnoses Not on filedocumented in this encounter Additional Health Concerns Assessment Noted Time PHQ-9 Depression Total Score: 7 06/01/19 24 1:38 PM EDT documented as of this encounter Care Teams Business Loan Processor Relationship Specialty Start Date End Date [place] [address] PCP - General Internal Medicine 10/10/13 documented as of this encounter
--- OUTSIDE RECORDS SUMMARY | 2024-04-30 19:50 | XMS_ITS | Encounter Summary ---
Author Organization [employer] Address [address] [facility] [address] [address] 7[address] [place] [address] Care Team Providers Care Voice And Data Technician Name Role Phone Benji Hurtado MD Primary Care Provide r Reason for Visit * Reason Comments Med Refill Encounter Details Date Type Department Care Team ([facility] st Contact Info) Description 07/28/2023 Refill [facility] MED [facility] PEDS [address] [place] [address] Benji Hurtado MD [address] [place] [address] Primary osteoarthritis of hip, unspecified laterality Social History Tobacco Use Types Packs/Day Years [...] AM EDT documented as of this encounter Plan of Treatment Upcoming Encounters Date Type Department Care Team (Late st Contact Info) Description 06/10/2024 1:30 PM EDT Telemedicine [facility] MED [facility] PEDS [address] [place] [address] Isabelle Dia, MARILUZ [address] [place] [address] 08/01/2024 2:00 PM EDT Office Visit [facility] MEDICINE [address] [place] [address] Benji Hurtado MD [address] [place] [address] documented as of this encounter Visit Diagnoses Diagnosis Primary osteoarthritis of hip, unspecified laterality documented in this encounter Additional Health Concerns Assessment Noted Time PHQ-9 Depression Total Score: 7 06/01/19 24 1:38 PM EDT documented as of this encounter Care Teams Voice And Data Technician Relationship Specialty Start Date End Date Benji Hurtado MD [address] [place] [address] PCP - General Internal Medicine 10/10/13 documented as of this encounter
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
--- OUTSIDE RECORDS SUMMARY | 2024-04-30 19:50 | XMS_ITS | Encounter Summary ---
Author Organization [employer] Address [address] [facility] 7 [place] [address] Care Team Providers Care Solvent Recoverer Name Role Phone Benji Hurtado MD Primary Care Provide r Reason for Visit * Reason Onset Date Comments Med Refill 06/10/2022 Encounter Details Date Type Department Care Team (Late st Contact Info) Description 06/10/2022 Telephone [facility] MEDICINE [address] [place] [address] Benji Hurtado MD [address] [place] [address] Med Refill Social History Tobacco Use Types Packs/Day Years Used Date Smoking Tobacco: Never Assessed Depression Answer Date Recorded Patient Health Questionnaire-9 [...] suspected to have Coronavirus/COVID-19? No / Unsure 05/16/2022 2:02 PM EDT documented as of this encounter Miscellaneous Notes * Telephone Encounter - Armando Shaikh Kaya - 06/10/2022 11:17 AM EDT Tc from pt requesting med refill on oxyCODONE ER (OxyCONTIN) 60 MG 12 hr tablet Please sent to [facility] - [place], [place] - [address] [place] [address] documented in this encounter Plan of Treatment Upcoming Encounters Date Type Department Care Team (Late st Contact Info) Description 06/10/2024 1:30 PM EDT Telemedicine [facility] MED & PEDS [address] [place] [address] Isabelle Dia, RN [address] [place] [address] 08/01/2024 2:00 PM EDT Office Visit [facility] MEDICINE [address] [place] [address] Benji Hurtado MD [address] [place] [address] documented as of this encounter Visit Diagnoses Not on filedocumented in this encounter Additional Health Concerns Assessment Noted Time PHQ-9 Depression Total Score: 9 03/22/19 23 1:26 PM EST documented as of this encounter Care Teams Solvent Recoverer Relationship Specialty Start Date End Date Benji Hurtado MD [address] [place] [address] PCP - General Internal Medicine 10/10/13 documented as of this encounter
--- OUTSIDE RECORDS SUMMARY | 2024-04-30 19:50 | XMS_ITS | Encounter Summary ---
Author Organization [employer] Address [address] [facility] 7t [place] [address] Care Team Providers Care C Architect Name Role Phone Benji Hurtado MD Primary Care Provide r Reason for Visit * Reason Comments Med Refill Encounter Details Date Type Department Care Team (Late st Contact Info) Description 06/15/2022 Refill [facility] MEDICINE [address] [place] [address] Benji Hurtado MD [address] [place] [address] Primary osteoarthritis of hip, unspecified laterality Social [...] PM EDT documented as of this encounter Plan of Treatment Upcoming Encounters Date Type Department Care Team (Late Contact Info) Description 06/10/2024 1:30 PM EDT Telemedicine [facility] MED [facility] PEDS [address] [place] [address] Isabelle Dia, RN [address] [place] [address] 08/01/2024 2:00 PM EDT Office Visit [facility] MED[facility]INE [address] [place] [address] Benji Hurtado MD [address] [place] [address] documented as of this encounter Visit Diagnoses Diagnosis Primary osteoarthritis of hip, unspecified laterality documented in this encounter Additional Health Concerns Assessment Noted Time PHQ-9 Depression Total Score: 9 03/22/19 23 1:26 PM EST documented as of this encounter Care Teams C Architect Relationship Specialty Start Date End Date Benji Hurtado MD [address] [place] [address] PCP - General Internal Medicine 10/10/13 documented as of this encounter
--- OUTSIDE RECORDS SUMMARY | 2024-04-30 19:50 | XMS_ITS | Encounter Summary ---
Author Organization [employer] Address [address] [facility] 7t [place] [address] Care Team Providers Care Fish Inspector Name Role Phone Benji Hurtado MD Primary Care Provide r Reason for Visit * Reason Onset Date Comments Prior Authorization 05/09/2023 Encounter Details Date Type Department Care Team ([facility] st Contact Info) Description 05/09/2023 Telephone [facility] MEDICINE [address] [place] [address] Benji Hurtado MD [address] [place] [address] Prior Authorization Social History Tobacco Use Types Packs/Day Years Used Date Smoking Tobacco: Every Day Cigarettes Passive Smoke Exposure: Current Smokeless Tobacco: Never Depression Answer Date Recorded Patient Health Questionnaire-9 Score 9 03/22/2022 Housing Stability Answer Date Recorded What is your housing situation today? I have housing today, but I am worried about losing housing in the future 12/25/[address] you li ve. Do you have problems with any of the following? None of the above 12/25/2022 Food Insecurity Answer Date Recorded Within the past 12 months, y ou worried that your food would run out before you got money to buy more: Never True 12/25/2022 Within the past 12 months,th e food you bought just didn't last and you didn't have enough money to get more: Never True Transportation Answer Date Recorded In the past 12 months, has l ack of transportation kept you from medical appts, meetings, work or from getting things needed for daily living? No 12/25/2022 Utilities Answer Date Recorded In the past 12 months, has t he electric, gas, oil or water company threatened to shut off services in your home? No 12/25/2022 Depression Answer Date Recorded Patient Health Questionnaire-2 Score 4 03/22/2022 Sex and Gender Information Value Date Recorded Sex Assigned at Male 12/27/2021 10:14 AM EDT Legal Sex Male 10:14 AM EDT Gender Identity Male 12/27/2021 10:14 AM EDT Sexual Orientation Straight 12/27/2021 10 :14 AM EDT documented as of this encounter Miscellaneous Notes * Telephone Encounter - Dahlia Long - 05/19/2023 9:16 AM EDT DME RX GENERATED PLACED AT PCP DESK FOR REVIEW AND SIGNATURE. ONCE SIGNED WILL BE FAXED TO [facility] FOR APPROVAL AND SCAN TO MEDIA. * Telephone Encounter - Esther Reis - 05/09/2023 12:35 PM EDT TC from Dustin from [facility] requesting a urgent call back regarding 2 medications . Would like to know if pt should be on both meds . oxyCODONE (Roxicodone) 30 MG immediate release tablet oxyCODONE ER (OxyCONTIN) 60 MG 12 hr tablet documented in this encounter Plan of Treatment Upcoming Encounters Date Type Department Care Team (Late st Contact Info) Description 06/10/2024 1:30 PM EDT Telemedicine [facility] CHC MED & PEDS [address] [place] [address] Isabelle Dia, MARILUZ [address] [place] [address] 08/01/2024 2:00 PM EDT Office Visit [facility] MEDICINE [address] [place] [address] Benji Hurtado MD [address] [place] [address] documented as of this encounter Visit Diagnoses Not on filedocumented in this encounter Additional Health Concerns Assessment Noted Time PHQ-9 Depression Total Score: 9 03/22/19 23 1:26 PM EST documented as of this encounter Care Teams Fish Inspector Relationship Specialty Start Date End Date Benji Hurtado MD 230 [place] [address] PCP - General Internal Medicine 10/10/13 documented as of this encounter
--- OUTSIDE RECORDS SUMMARY | 2024-04-30 19:50 | XMS_ITS | Encounter Summary ---
Author Organization [employer] Address [address] [facility] 7 [place] [address] Care Team Providers Care Printed Circuit Board Layout Designer Name Role Phone Benji Hurtado MD Primary Care Provide r Reason for Visit * Reason Onset Date Comments Med Refill 02/18/2022 Encounter Details Date Type Department Care Team (Late Contact Info) Description 02/18/2022 Refill [facility] MEDICINE [address] [place] [address] Benji Hurtado MD [address] [place] [address] Social History Tobacco Use Types Packs/Day Years Used Date Smoking Tobacco: Never Assessed Sex and Gender Information Value Date Recorded Sex Assigned at Male 12/27/2021 10:14 AM EDT Legal Sex Male 10:14 AM EDT Gender Identity Male 12/27/2021 10:14 AM EDT Sexual Orientation Straight 12/27/2021 10 :14 AM EDT documented as of this encounter Miscellaneous Notes * Telephone Encounter - sEther Reis - 02/18/2022 10:36 AM EST Tc from pt requesting med refill on medication oxycontin 60 mg . documented in this encounter Plan of Treatment Upcoming Encounters Date Type Department Care Team (Late st Contact Info) Description 06/10/2024 1:30 PM EDT Telemedicine [facility] CHC MED & PEDS [address] [place] [address] Isabelle Dia, MARILUZ 505 [place] [address] 08/01/2024 2:00 PM EDT Office Visit [facility] MEDICINE 230 [place] [address] Benji Hurtado MD [address] [place] [address] documented as of this encounter Visit Diagnoses Not on filedocumented in this encounter Care Teams Printed Circuit Board Layout Designer Relationship Specialty Start Date End Date Benji Hurtado MD [address] [place] [address] PCP - General Internal Medicine 10/10/13 documented as of this encounter
--- OUTSIDE RECORDS SUMMARY | 2024-04-30 19:50 | XMS_ITS | Encounter Summary ---
Author Organization [employer] Address [address] [facility] 7 [place] [address] Care Team Providers Care Produce Assistant Name Role Phone Benji Hurtado MD Primary Care Provide r Reason for Visit * Reason Onset Date Comments Med Refill 07/22/2023 Encounter Details Date Type Department Care Team (Late st Contact Info) Description 07/22/2023 Refill [facility] MEDICINE [address] [place] [address] Benji Hurtado MD [address] [place] [address] Social History Tobacco Use Types Packs/Day Years [...] Info) Description 06/10/2024 1:30 PM EDT Telemedicine [facility] MED & PEDS 505 [place] [address] Isabelle Dia, RN 505 [place] [address] 08/01/2024 2:00 PM EDT Office Visit [facility] MEDICINE [address] [place] [address] Benji Hurtado MD [address] [place] [address] documented as of this encounter Visit Diagnoses Not on filedocumented in this encounter Additional Health Concerns Assessment Noted Time PHQ-9 Depression Total Score: 7 06/01/19 24 1:38 PM EDT documented as of this encounter Care Teams Produce Assistant Relationship Specialty Start Date End Date Benji Hurtado MD [address] [place] [address] PCP - General Internal Medicine 10/10/13 documented as of this encounter
--- OUTSIDE RECORDS SUMMARY | 2024-04-30 19:50 | XMS_ITS | Encounter Summary ---
Author Organization [employer] Address [address] [facility] 7 [place] [address] Care Team Providers Care Glost Tile Sorter Name Role Phone Benji Hurtado MD Primary Care Provide r Reason for Visit * Reason Comments Med Refill Encounter Details Date Type Department Care Team (Late st Contact Info) Description 07/30/2022 Refill [facility] MEDICINE 230 [place] [address] Dione Martin ANP 230 [place] [address] Social History Tobacco Use Types Packs/Day Years [...] Info) Description 06/10/2024 1:30 PM EDT Telemedicine [facility] CHC MED & PEDS 505 [place] [address] Isabelle Dia, MARILUZ 505 [place] [address] 08/01/2024 2:00 PM EDT Office Visit [facility] MEDICINE 230 [place] [address] Benji Hurtado MD [address] [place], [place] [phone] documented as of this encounter Visit Diagnoses Not on filedocumented in this encounter Additional Health Concerns Assessment Noted Time PHQ-9 Depression Total Score: 9 03/22/19 23 1:26 PM EST documented as of this encounter Care Teams Glost Tile Sorter Relationship Specialty Start Date End Date Benji Hurtado MD [address] [place] [address] PCP - General Internal Medicine 10/10/13 documented as of this encounter
--- OUTSIDE RECORDS SUMMARY | 2024-04-30 19:50 | XMS_ITS ---
Author Organization [facility] Address [address] [place] [address] Care Team Providers Care Lot Worker Name Role Phone Tiana Corbin MD, Benji Primary Care Provide r Unavailable Chai Reyna Unavailable [phone] ALLERGIES Allergen (clinical drug ingredient) Drug/Non Drug Allergy documented on EMR Reaction Allergy Type Onset Date Status morphine Morphine Unknown Drug Allergy Active Bee Sting Unknown Allergy Active aspirin Aspirin Unknown Drug Allergy Active acetaminophen Tylenol Unknown Drug Allergy Act olu REASON FOR VISIT Patient presents today for GERD, HIATAL HERNIA MEDICATIONS Medication SIG (Take, Route, Frequency, Duration) Notes Start Date End Date Status Lisinopril 10 MG TAKE 1 TABLET BY FORREST TH EVERY MORNING Diagnosis Unavailable Oral for 90 Active hydrOXYzine HCl 50 MG TAKE 1 TABLET BY M OUTH TWICE DAILY NEEDED (OR MAY TAKE 1.5 TO 2 TABLETS BY MOUTH ONCE DAILY NEEDED) FOR ANXIETY OR PANIC ATTACKS Oral for 30 Active Propranolol HCl 20 MG TAKE 1 TABLET BY M OUTH ONCE DAILY NEEDED onset of panic attacks (Do NOT take if heart rate/pulse below 55 bpm or at same time as inhaler) Oral for 30 Active Dicyclomine HCl 20 MG TAKE 1 TABLET BY M OUTH THREE TIMES DAILY NEEDED FOR ABDOMINAL DISCOMFORT Diagnosis Unavailable Oral for 10 Active ProAir HFA 108 (90 Base) MCG/ACT INHALE 2 PUFFS BY MOUTH EVERY 4 TO 6 HOURS NEEDED Inhalation for 17 Active Vyvanse 60 MG TAKE 1 CAPSULE BY MO UTH EVERY MORNING WITH FOOD Diagnosis Unavailable Oral for 30 Active Ventolin HFA 108 (90 Base) MCG/ACT INHALE 2 PUFFS BY MOUTH EVERY 4 HOURS Diagnosis Unavailable Inhalation for 17 Active Omeprazole 20 MG TAKE [address] [facility] ONCE DAILY BEFORE BREAKFAST Diagnosis Unavailable Oral Active Pioglitazone HCl 30 MG TAKE 1 TABLET BY MOUTH EVERY DAY Oral for 30 Active Mirtazapine 15 MG TAKE 1/2 TO 1 TABLET BY MOUTH AT BEDTIME NEEDED FOR SLEEP Oral for 30 Active Trulicity 0.75 MG/0.5ML INJECT ONE PEN ( =0.75MG) SUBCUTANEOUSLY ONCE A WEEK DIRECTED Subcutaneous for 28 Active clonazePAM 1 MG [facility] TW[facility]ILY NEEDED Oral for 30 Not-Taking OxyCONTIN 60 MG TAKE 1 TABLET BY FORREST EVERY TWELVE HOURS FOR 28 DAYS DO NOT BREAK, CRUSH, DISSOLVE OR CHEW Diagnosis Unavailable Oral for 28 Active oxyCODONE HCl 30 MG TAKE 1 TABLET BY [facility] EVERY TWELVE HOURS NEEDED FOR SEVERE PAIN FOR UP TO 28 DAYS Diagnosis Unavailable Oral for 28 Active SOCIAL HISTORY Tobacco Use: Social History Observation Description Date Details (start date - stop date) Current Smoker NA - NA Sex Assigned At : Social History Observation Description Sex Assigned At Unknown Tobacco Use/Smoking Question Answer Notes Patient is a current smoker How often do you smoke cigarettes? every day How many cigarettes a day do you smoke? 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) Active confirmed Valladares's esophagus (732474626) Problem Helicobacter pylori gastrointestinal tract infection (A04.8) Active confirmed Helicobacter pylori gastrointestinal tract infection (588924910) Problem Chronic gastritis (K29.50) Active confirmed Chronic gastrit is (2132503) VITAL SIGNS Temperature 98.4 degrees Fahrenheit 05/19/19 24 Blood pressure systolic 000 mm Hg 05/19/19 24 Blood pressure diastolic 00 mm Hg 024 Height 74 in 05/19/2023 Weight 326 lbs 05/19/2023 BMI 41.85 kg/m2 05/19/2023 Encounters Encounter Location Date Provider Diagnosis [facility] [address] [place] [address] 05/19/2023 Chai Reyna Gastroesophageal ref lux disease, unspecified whether esophagitis present K21.9 ; Valladares''s esophagus without dysplasia K22.70 ; Helicobacter pylori gastrointestinal tract infection A04.8 and Chronic gastritis K29.50 ASSESSMENTS Encounter Date Diagnosis Assessment Notes Treatment Notes Treatment Clinical Notes 05/19/2023 Gastroesophageal reflux disease, unspecified whether esophagitis present (ICD-10 - K21.9) Continue your daily omeprazole We will do a screening colonoscopy and we will repeat the upper endoscopy for the Valladares's/reflux in 07/202505/19/2023 Valladares''s esophagus without dysplasia (ICD-10 - K22.70) 05/19/2023 Helicobacter pylori gastrointestinal tract infection (ICD-10 - A04.8) 05/19/2023 Chronic gastritis (ICD-10 - K29.50) PLAN OF TREATMENT Medication Medication Name Sig Start Date Stop Date Notes Omeprazole 20 MG TAKE [address] [facility] ONCE DAILY BEFORE BREAKFAST Diagnosis Unavailable Oral Treatment Notes Assessment Notes Gastroesophageal reflux dise ase, unspecified whether esophagitis present Continue your daily omeprazole We will do a screening colonoscopy and we will repeat the upper endoscopy for the Valladares's/reflux in 07/2025 Next Appt Details Follow Up: prn, Reason: Progress Notes * Examination Category Sub-Category Detail Notes General Examination GENERAL APPEARANCE: pleasant , well nourished, well developed, in no acute distress HEAD: EYES: sclera non-icteric EARS: NOSE: THROAT: NECK/THYROID: no cervical lymphade nopathy, neck supple HEART: S1, S2 normal CHEST: LUNGS: clear to auscultatio n bilaterally ABDOMEN: normal bowel sounds, no guarding or rigidity, no guarding or rigidity, no masses palpable, soft, nontender, nondistended NEUROLOGIC: alert and oriented SKIN: nonjaundiced, no spi alvin angiomata EXTREMITIES: PERIPHERAL PULSES: BACK: BREASTS: MUSCULOSKELETAL: MALE GENITOURINARY: LYMPH NODES: RECTAL EXAM: FEMALE GENITOURINARY: ORAL CAVITY: mucosa moist
--- OUTSIDE RECORDS SUMMARY | 2024-04-30 19:50 | XMS_ITS | Encounter Summary ---
Author Organization [employer] Address [address] [facility] 7t [place] [address] Care Team Providers Care Cheese Factory Worker Name Role Phone Benji Hurtado MD Primary Care Provide r Reason for Visit * Reason Onset Date Comments Appointment Request 01/17/2023 Encounter Details Date Type Department Care Team ([facility] st Contact Info) Description 01/17/2023 Telephone [facility] MEDICINE [address] [place] [address] Benji Hurtado MD 230 [place] [address] Appointment Request Social History Tobacco Use Types Packs/Day Years [...] encounter Miscellaneous Notes * Telephone Encounter - Jennyshamir Shaikh Kaya - 01/17/2023 12:46 PM EST Tc from pt requesting to r/s appt for Follow up for a 4 mo f/u dm @ 1:15 pm. Pt Cannot make it due to transportation. Please contact pt at [phone] documented in this encounter Plan of Treatment Upcoming Encounters Date Type Department Care Team (Late st Contact Info) Description 06/10/2024 1:30 PM EDT Telemedicine [facility] CHC MED & PEDS 505 [place] [address] Isabelle Dia, MARILUZ 505 [place] [address] 08/01/2024 2:00 PM EDT Office Visit [facility] MEDICINE [address] [place] [address] Benji Hurtado MD [address] [place] [address] documented as of this encounter Visit Diagnoses Not on filedocumented in this encounter Additional Health Concerns Assessment Noted Time PHQ-9 Depression Total Score: 9 03/22/19 23 1:26 PM EST documented as of this encounter Care Teams Cheese Factory Worker Relationship Specialty Start Date End Date Benji Hurtado MD [address] [place] [address] PCP - General Internal Medicine 10/10/13 documented as of this encounter
--- OUTSIDE RECORDS SUMMARY | 2024-04-30 19:50 | XMS_ITS | Encounter Summary ---
Author Organization [employer] Address [address] [facility] 7t [place] [address] Care Team Providers Care Block Handler Name Role Phone Benji Hurtado MD Primary Care Provide r Reason for Visit * Reason Onset Date Comments Med Refill 01/17/2024 Encounter Details Date Type Department Care Team (Late st Contact Info) Description 01/17/2024 Telephone [facility] MEDICINE 230 [place] [address] Benji Hurtado MD [address] [place] [address] Med Refill Social History Tobacco Use Types [...] encounter Miscellaneous Notes * Telephone Encounter - Navdeep Salazar - 01/17/2024 11:17 AM EST TC from pt requesting medication refill. Medications needing refill : oxyCODONE (Roxicodone) 30 MG immediate release tablet oxyCODONE ER (OxyCONTIN) 60 MG 12 hr tablet To be sent to: [facility] - [place], [place] - [address] [place] [address] documented in this encounter Plan of Treatment Upcoming Encounters Date Type Department Care Team ([facility] st Contact Info) Description 06/10/2024 1:30 PM EDT Telemedicine [facility] CHC MED & PEDS [address] [place] [address] Isabelle Dia, RN 505 [place] [address] 08/01/2024 2:00 PM EDT Office Visit [facility] MEDICINE 230 [place] [address] Benji Hurtado MD [address] [place] [address] documented as of this encounter Visit Diagnoses Not on filedocumented in this encounter Additional Health Concerns Assessment Noted Time PHQ-9 Depression Total Score: 7 06/01/19 24 1:38 PM EDT documented as of this encounter Care Teams Block Handler Relationship Specialty Start Date End Date Benji Hurtado MD 230 [place] [address] PCP - General Internal Medicine 10/10/13 documented as of this encounter
--- OUTSIDE RECORDS SUMMARY | 2024-04-30 19:50 | XMS_ITS | Encounter Summary ---
Author Organization [employer] Address [address] [facility] [address] 7t [place] [address] Care Team Providers Care As400 Operator Name Role Phone Benji Hurtado MD Primary Care Provide r Reason for Visit * Reason Comments Med Refill Encounter Details Date Type Department Care Team ([facility] st Contact Info) Description 02/02/2023 Refill [facility] CHC MED & PEDS [address] [place] [address] Benji Hurtado MD 230 [place] [address] Primary osteoarthritis of hip, unspecified laterality Social [...] Info) Description 06/10/2024 1:30 PM EDT Telemedicine [facility] CHC MED & PEDS 505 [place] [address] Isabelle Dia, RN 505 [place] [address] 08/01/2024 2:00 PM EDT Office Visit [facility] MEDICINE 230 [place] [address] Benji Hurtado MD 230 [place] [address] documented as of this encounter Visit Diagnoses Diagnosis Primary osteoarthritis of hip, unspecified laterality documented in this encounter Additional Health Concerns Assessment Noted Time PHQ-9 Depression Total Score: 9 03/22/19 23 1:26 PM EST documented as of this encounter Care Teams As400 Operator Relationship Specialty Start Date End Date Benji Hurtado MD [address] [place] [address] PCP - General Internal Medicine 10/10/13 documented as of this encounter
--- OUTSIDE RECORDS SUMMARY | 2024-04-30 19:50 | XMS_ITS ---
Author Organization [facility] Address [address] [place] [address] Care Team Providers Care Master Carpenter Name Role Phone Tiana Corbin MD, [facility] Primary Care Provide r Chai Aguillon [phone] REASON FOR VISIT Patient presents today for gerd,hiatal hernia Encounters Encounter Location Date Provider Diagnosis [facility] [address] [place] [phone] 01/11/2023 Chai Reyna PLAN OF TREATMENT No Information
--- OUTSIDE RECORDS SUMMARY | 2024-04-30 19:50 | XMS_ITS | Encounter Summary ---
Author Organization [employer] Address [address] [facility] 7 [place] [address] Care Team Providers Care Machinist Bench Name Role Phone Benji Hutrado MD Primary Care Provide r Reason for Visit * Reason Onset Date Comments Med Refill 12/30/2022 Encounter Details Date Type Department Care Team ([facility] st Contact Info) Description 12/30/2022 Telephone [facility] MEDICINE 230 [place] [address] Benji Hurtado MD [address] [place] [address] Med Refill Social History Tobacco Use Types [...] * Telephone Encounter - Armando Kirkpatrick - 01/02/2023 8:35 AM EST Tc from pt requesting status on message above. Please contact pt at [phone] * Telephone Encounter - Jacoby Uribe - 12/30/2022 4:32 PM EDT TC from pt states [facility] pharmacy gave 3 day supply of oxyCODONE ER (OxyCONTIN) 60 MG 12 hr tablet . Pharmacy requesting a new script because PA has not been approved as of yet . * Telephone Encounter - Chasidy Rodriguez - 12/30/2022 2:14 PM EDT Tc from pt requesting a new script for oxyCODONE ER (OxyCONTIN) 60 MG 12 hr tablet. Was advised by pharmacy to request for a new script since pt was given a three day supply while waiting for PA. documented in this encounter Plan of Treatment Upcoming Encounters Date Type Department Care Team (Late st Contact Info) Description 06/10/2024 1:30 PM EDT Telemedicine [facility] MED & PEDS 505 [place] [address] Isabelle Dia, MARILUZ 505 [place] [address] 08/01/2024 2:00 PM EDT Office Visit [facility] MEDICINE [address] [facility] [place] [address] Benji Hurtado MD 230 [place] [address] documented as of this encounter Visit Diagnoses Not on filedocumented in this encounter Additional Health Concerns Assessment Noted Time PHQ-9 Depression Total Score: 9 03/22/19 23 1:26 PM EST documented as of this encounter Care Teams Machinist Bench Relationship Specialty Start Date End Date Benji Hurtado MD [facility] [place] [address] PCP - General Internal Medicine 10/10/13 documented as of this encounter
--- OUTSIDE RECORDS SUMMARY | 2024-04-30 19:50 | XMS_ITS | Encounter Summary ---
Author Organization [employer] Address [address] [facility] [address] 7t [place] [address] Care Team Providers Care Filling Machine Set Up Mechanic Name Role Phone Benji Hurtado MD Primary Care Provide r Reason for Visit * Reason Comments Med Refill Encounter Details Date Type Department Care Team ([facility] st Contact Info) Description 03/01/2023 Refill [facility] CH[facility] MED & PEDS [address] [place] [address] Benji Hurtado MD [address] [place] [address] Primary osteoarthritis of hip, unspecified laterality Social [...] Info) Description 06/10/2024 1:30 PM EDT Telemedicine [facility] CHC MED & PEDS 505 [place] [address] Isabelle Dia, RN 505 [place] [address] 08/01/2024 2:00 PM EDT Office Visit [facility] MEDICINE 230 [place] [address] Benji Hurtado MD [address] [place] [address] documented as of this encounter Visit Diagnoses Diagnosis Primary osteoarthritis of hip, unspecified laterality documented in this encounter Additional Health Concerns Assessment Noted Time PHQ-9 Depression Total Score: 9 03/22/19 23 1:26 PM EST documented as of this encounter Care Teams Filling Machine Set Up Mechanic Relationship Specialty Start Date End Date Benji Hurtado MD [address] [place] [address] PCP - General Internal Medicine 10/10/13 documented as of this encounter
--- OUTSIDE RECORDS SUMMARY | 2024-04-30 19:50 | XMS_ITS | Encounter Summary ---
Author Organization [employer] Address [address] [place] [address] Care Team Providers Care Tool Machinist Name Role Phone Benji Hurtado MD Primary Care Provide r Reason for Visit * Reason Comments Med Refill Encounter Details Date Type Department Care Team ([facility] st Contact Info) Description 01/31/2023 Refill [facility] [address] [place] [address] Benji Hurtado MD [address] [place] [address] Primary osteoarthritis of hip, unspecified laterality Social [...] Description 06/10/2024 1:30 PM EDT Telemedicine [facility] [address] [place] [address] Isabelle Dia, RN [address] [place] [address] 08/01/2024 2:00 PM EDT Office Visit [facility] MED[facility]INE [address] [place] [address] Benji Hurtado MD [address] [place] [address] documented as of this encounter Visit Diagnoses Diagnosis Primary osteoarthritis of hip, unspecified laterality documented in this encounter Additional Health Concerns Assessment Noted Time PHQ-9 Depression Total Score: 9 03/22/19 23 1:26 PM EST documented as of this encounter Care Teams Tool Machinist Relationship Specialty Start Date End Date Benji Hurtado MD [address] [place] [id number] PCP - General Internal Medicine 10/10/13 documented as of this encounter
--- OUTSIDE RECORDS SUMMARY | 2024-04-30 19:51 | XMS_ITS | Encounter Summary ---
Author Organization [employer] Address [address] [facility] [address] [place] [address] Care Team Providers Care Animal Herder Name Role Phone Benji Hurtado MD Primary Care Provide r Reason for Visit * Reason Onset Date Comments Chart Prep 04/12/2024 Encounter Details Date Type Department Care Team ([facility] st Contact Info) Description 04/12/2024 Telephone [facility] MEDICINE [address] [place] [address] Benji Hurtado MD [address] [place] [address] Chart Prep Social History Tobacco Use Types Packs/Day Years [...] encounter Miscellaneous Notes * Telephone Encounter - Magui Cee [place] - 04/12/2024 11:10 AM EST Chart Prep Labs: not done Images: not applicable Vaccines due: Tdap Due, Hep A Due, and PCV20 Due Referrals: Not Applicable Screenings: Eye Exam, Foot Exam, and HIV screening Overdue care gaps: A1C, Glucose, Sbirt, SDOH, PHQ-9, and Oral Health Chart prep for upcoming appt with Dr.Esparza du. LB documented in this encounter Plan of Treatment Upcoming Encounters Date Type Department Care Team (Late st Contact Info) Description 06/10/2024 1:30 PM EDT Telemedicine [facility] PEDS [address] [place] [address] Isabelle Dia RN [address] [place] [address] 08/01/2024 2:00 PM EDT Office Visit [facility] MEDICINE [address] [place] [address] Benji Hurtado MD [address] [place] [address] documented as of this encounter Visit Diagnoses Not on filedocumented in this encounter Additional Health Concerns Assessment Noted Time PHQ-9 Depression Total Score: 7 06/01/19 24 1:38 PM EDT documented as of this encounter Care Teams Animal Herder Relationship Specialty Start Date End Date Benji Hurtado MD [address] [place] [address] PCP - General Internal Medicine 10/10/13 documented as of this encounter
--- OUTSIDE RECORDS SUMMARY | 2024-04-30 19:51 | XMS_ITS | Encounter Summary ---
Author Organization [employer] Address [address] [facility] [address] [place] [address] Care Team Providers Care Edge Cutter Name Role Phone Benji Hurtado MD Primary Care Provide r Reason for Visit * Reason Comments Pre-visit Planning Pre-visit planning - LVM Encounter Details Date Type Department Care Team ([facility] st Contact Info) Description 04/23/2024 Patient Outreach [facility] MEDICINE [address] [place] [address] Benji Hurtado MD [address] [place] [address] Pre-visit Planning (Pre-visit planning - LVM ) Social History Tobacco Use Types Packs/Day Years [...] AM EDT documented as of this encounter Progress Notes * Maribel Figueredo - 04/23/2024 9:43 AM EST JEANNETTE Hilliard placed outbound call to patient to complete pre-visit planning. No answer at this time. Patient name and were not confirmed. CC left voicemail requesting return call. Direct contact information provided. documented in this encounter Plan of Treatment Upcoming Encounters Date Type Department Care Team (Late st Contact Info) Description 06/10/2024 1:30 PM EDT Telemedicine [facility] MED [facility] PEDS [address] [place] [address] Isabelle Dia, RN [address] [place] [address] 08/01/2024 2:00 PM EDT Office Visit [facility] MEDICINE [address] [place] [address] Benji Hurtado MD [address] [place] [address] documented as of this encounter Visit Diagnoses Not on filedocumented in this encounter Additional Health Concerns Assessment Noted Time PHQ-9 Depression Total Score: 7 06/01/19 24 1:38 PM EDT documented as of this encounter Care Teams Edge Cutter Relationship Specialty Start Date End Date Benji Hurtado MD [address] [place] [address] PCP - General Internal Medicine 10/10/13 documented as of this encounter
--- OUTSIDE RECORDS SUMMARY | 2024-04-30 19:51 | XMS_ITS | Encounter Summary ---
Author Organization [employer] Address [address] [facility] [address] [place] [address] Care Team Providers Care Carton Machine Operator Name Role Phone Benji Hurtado MD Primary Care Provide r Reason for Visit * Reason Onset Date Comments Med Refill 04/08/2024 Encounter Details Date Type Department Care Team (Late st Contact Info) Description 04/08/2024 Refill [facility]S [address] [place] [address] Benji Hurtado MD [address] [place] [address] Chronic pain syndrome; Primary osteoarthritis of hip, unspecified laterality Social [...] [facility] MED & PEDS [address] [place] [address] Isabelle Dia RN [address] [place] [address] 08/01/2024 2:00 PM EDT Office Visit [facility] MEDICINE [address] [place] [address] Benji Hurtado MD [address] [place] [address] documented as of this encounter Visit Diagnoses Diagnosis Chronic pain syndrome Primary osteoarthritis of hip, unspecified laterality documented in this encounter Additional Health Concerns Assessment Noted Time PHQ-9 Depression Total Score: 7 06/01/19 24 1:38 PM EDT documented as of this encounter Care Teams Carton Machine Operator Relationship Specialty Start Date End Date Benji Hurtado MD [address] [place] [address] PCP - General Internal Medicine 10/10/13 documented as of this encounter
--- OUTSIDE RECORDS SUMMARY | 2024-04-30 19:51 | XMS_ITS | Encounter Summary ---
Author Organization [employer] Address [address] [facility] 7 [place] [address] Care Team Providers Care Motorized Squad Lieutenant Name Role Phone Benji Hurtado MD Primary Care Provide r Reason for Referral * Consultation (Routine) - Pending Review Specialty Diagnoses / Procedures Referred By Beatriz crystal Referred To Contact Podiatry Diagnoses Type 2 diabetes mellitus without complication, without long-term current use of insulin (CMS/HCC) Benji Hurtado MD [address] [place] [phone] Phone: tel: fax: Referral ID Status Reason Start Date Expiration Date Visits Requested Visits Authorized [id number] Pending Review Specialty Services Required 04/30/2024 04/30/2025 1 1 Reason for Visit * Reason Comments Diabetes Depression Pt has been depresse d since January 2024 Encounter Details Date Type Department Care Team (Late st Contact Info) Description 04/30/2024 3:00 PM EST Office Visit [facility] [address] [place] [address] [phone] Benji Hurtado MD [address] [place], [place] [phone] Obstructive sleep apnea syndrome (Primary Dx); Type 2 diabetes mellitus without complication, without long-term current use of insulin (CMS/HCC); Chronic pain syndrome; Moderate persistent asthma without complication; Essential hypertension; Morbid obesity (CMS/HCC); Mixed hyperlipidemia; Dietary counseling; Exercise counseling Social History Tobacco Use Types Packs/Day Years [...] Recorded Patient Health Questionnaire-2 Score 2 06/01/2023 Internet Access Answer Date Recorded Internet Access Q1 Yes 04/30/2024 Internet Access Q2 Not on file 04/30/2024 Sex and Gender Information Value Date Recorded Sex Assigned at Male 12/27/2021 10:14 AM EDT Legal Sex Male 10:14 AM EDT Gender Identity Male 12/27/2021 10:14 AM EDT Sexual Orientation Straight 12/27/2021 10 :14 AM EDT documented as of this encounter Last Filed Vital Signs Vital Sign Reading Time Taken Comments Blood Pressure 142/114 04/30/2024 3:21 PM EST no chest pain, SOB, or palpitations Pulse 85 04/30/2024 3:21 PM EST Temperature 35.5 ??C (95.9 ??F) 04/30/2024 3 :21 PM EST Respiratory Rate 20 04/30/2024 3:21 PM EST Oxygen Saturation 99% 04/30/2024 3:2 1 PM EST Inhaled Oxygen Concentration - - Weight 147 kg (324 lb 9.6 oz) 04/30/2024 3:21 PM EST Height 188 cm (6' 2 ) 04/30/2024 3:21 PM EST Body Mass Index 41.68 04/30/2024 3:21 PM EST documented in this encounter Progress Notes * Benji Corbin MD - 04/30/2024 3:00 PM EST SUBJECTIVE Javier Charles is a 43 y.o. male who presents for Diabetes and Depression (Pt has been depressed since January 2024). Diabetes He presents for his follow-up diabetic visit. He has type 2 diabetes mellitus. Pertinent negatives for hypoglycemia include no headaches. Pertinent negatives for diabetes include no chest pain. DepressionPatient is not experiencing: shortness of breath. Review of Systems Constitutional: Negative for fever. HENT: Negative for sore throat. Respiratory: Negative for cough and shortness of breath. Cardiovascular: Negative for chest pain. Gastrointestinal: Negative for abdominal pain. Neurological: Negative for headaches. Psychiatric/Behavioral: Positive for depression. Allergies Allergen Reactions Morphine Headache and Hives Other reaction(s): Hives Acetaminophen Other reaction(s): stomach ache, Unknown Amitriptyline Other reaction(s): shaking Aspirin Swelling and Unknown Bee Pollen Swelling Bee Venom Other reaction(s): Unknown Blue Dyes (Parenteral) Nausea Meperidine Hallucinations Metformin Other reaction(s): GI upset Quetiapine Shellfish Allergy Hives Cyclobenzaprine Rash Latex Rash OBJECTIVE Vitals: 04/30/24 1521 BP: (!) 142/114 BP Location: Left arm Patient Position: Sitting BP Cuff Size: Large adult Pulse: 85 Resp: 20 Temp: 95.9 ??F (35.5 ??C) TempSrc: Temporal SpO2: 99% Weight: 324 lb 9.6 oz (147 kg) Height: 6' 2 (1.88 m) Physical Exam Vitals reviewed. Constitutional: Appearance: Normal appearance. HENT: Head: Normocephalic and atraumatic. Right Ear: External ear normal. Left Ear: External ear normal. Nose: Nose normal. Mouth/Throat: Mouth: Mucous membranes are moist. Eyes: Conjunctiva/sclera: Conjunctivae normal. Cardiovascular: Rate and Rhythm: Normal rate and regular rhythm. Pulmonary: Effort: Pulmonary effort is normal. Breath sounds: Normal breath sounds. Skin: General: Skin is warm. Neurological: Mental Status: He is alert. Mental status is at baseline. Assessment/Plan Problem List Items Addressed This Visit Type 2 diabetes mellitus (CMS/HCC) Patient is here for a follow up DM Controlled He is on a regimen of Trulicity 0.75 once a week (injected by his significant other) and Pioglitazone 30 mg po daily In the past he was on Ozempic. Pt did not tolerate Metformin XR due to stomach upset. He has phobiato needles so he does not want to use insulin Hgb A1c 04/30/2024: 6.5 Eye exam: Pt was referred to our Eye care Program Microalbumin checked on: 12/09/2020 was: 3.2 Pt on an MALIK inhibitor (lisinopril ) Foot check not done Plan: Lower dose of Actos down to 15 mg po daily Pt is allergic to Asa 81 mg po daily (severe swelling) Pt has been advised to: adhere to diabetic diet Pt will come back to see me in 3 months check your blood sugars regularly check your feet on a daily basis Relevant Medications pioglitazone (Actos) 15 MG tablet Other Relevant Orders POCT HGB A1C (Completed) Referral to Podiatry Obstructive sleep apnea syndrome - Primary Pt here for a f/u Pt with known case of ARMANDO and class 3 obesity with increased symptoms after his CPAP machine broke New home sleep study was negative for ARMANDO which was extremely surprising Pt was convinced the study is not acurate Patient was referred to the Sleep Clinic. He had a repeat Sleep study Pt underwent split night sleep study. The baseline portion of the study was significant for severe degree of sleep apnea, mostly central events with hypopneas. The AHI was 50/hr and oxygen wale was 80%. He was trialed on CPAP 6- 14cm H2O and BiPAP 12/01 to 09/10. The obstructive events were eliminated, oxygenation improved but there were persistent central events. Pt reports he sleeps better, 4-6 hrs and daytime sleepiness has improved a lot. No more doze off and has more energy. He does not need to take a nap. Chronic pain syndrome Patient is here for a follow up Ggod days and bad days He is on group home COT patient has OA hips, chronic low back pain, RSD of right foot On a narcotic regimen of : Oxycontin 60 mg po in AM and 60 mg at PM and Oxycodone 30 mg po BID, Pt has a medical marijuana card, but he states he rarely buys it because he cannot afford it. as well as Tizanidine 2 mg po q 8 hrs walking daily with care. Pt was evaluated by the pain management center in the past who agreed with current pain control with monitoring and considering re-imaging to strategise on pain management. Previously I have discussed considering to continue lowering his Oxycontin slowly but he is resistant to going any lower than what he is right now. I have explained to him that he is in a very high dose and this puts him at a higher risk of respiratory depression In the past I recommended acupuncture. He is phobic to needles MRI of the thoracic spine appeared normal 08/25/2018 MRI of LS spine 08/25/2018 showed multiple levels of herniated disks worst at L3- L4 level with moderate stenosis Previous visit I ordered MRIs on an open machine but given his body habitus this was not able to bedone. For now he would like to stay as is, does not want to go back to pain clinic at the moment but he is not ruling it out Moderate persistent asthma No recent exacerbations Essential hypertension Patient with Hypertension currently controlled on a regimen of: Lisinopril 10 mg po daily Given adequate blood pressure control will continue with current regimen Most recent electrolytes, Bun and Creatinine done on: Lab Results Component Value Date NA 141 03/13/2023 NA 140 04/08/2022 K 4.1 03/13/2023 K 4.6 04/08/2022 CL 103 03/13/2023 CL 104 04/08/2022 BUN 12 03/13/2023 BUN 17 04/08/2022 CREATININE 0.80 03/13/2023 CREATININE 0.74 04/08/2022 were within normal limits. Will repeat patient advised to adhere to a low sodium diet, encouraged about medication compliance, counseled about weight loss. Relevant Orders Comprehensive Metabolic Panel Morbid obesity (CMS/HCC) Referred to [facility] in the past Patient has been counseled and educated about diet and exercise. Personal goal of weight loss discussedPatient has comorbidity of: DM Dietary Recommendations: Fruits, vegetables, whole grains, protein foods, and fat-free or low-fat dairy products are healthychoices. Eat different types of protein foods in your diet. This can include seafood, lean meats, poultry, beans, peas, lentils, nuts, seeds, soy products, and eggs. Limit foods and beverages higher in added sugars, saturated fat, and sodium. Exercise Recommendations: At least 150 minutes of moderate-intensity physical activity per week, or an equivalent combinationof moderate- and vigorous-intensity activity Mixed hyperlipidemia Patient with elevated lipids. Most recent lipid profile from: Lab Results Component Value Date TRIG 197 (H) 10/02/2023 TRIG 145 04/08/2022 CHOL 212 (H) 10/02/2023 LDLCHOLCAL 126 (H) 10/02/2023 HDL 47 10/02/2023 Pt today tells me he did not tolerate Crestor 5mg po daily causing him stomach problems , stomach aches Previously told me he did not tolerate the Atorvastatin 20 mg po qhs, previously Simvastatin, caused him stomach upset, advised to try to adhere to a low cholesterol diet, counseled and educated about diet and exercise, Patient encouraged to come up with a personal goal for weight loss. Plan: repeat Lipid profile Relevant Orders Lipid Panel, Standard Other Visit Diagnoses Dietary counseling Exercise counseling documented in this encounter Miscellaneous Notes * Assessment & Plan Note - Benji Corbin MD - 04/30/2024 3:24 PM EST Associated Problem(s): Mixed hyperlipidemia Patient with elevated lipids. Most recent lipid profile from: Lab Results Component Value Date TRIG 197 (H) 10/02/2023 TRIG 145 04/08/2022 CHOL 212 (H) 10/02/2023 LDLCHOLCAL 126 (H) 10/02/2023 HDL 47 10/02/2023 Pt today tells me he did not tolerate Crestor 5mg po daily causing him stomach problems , stomach aches Previously told me he did not tolerate the Atorvastatin 20 mg po qhs, previously Simvastatin, caused him stomach upset, advised to try to adhere to a low cholesterol diet, counseled and educated about diet and exercise, Patient encouraged to come up with a personal goal for weight loss. Plan: repeat Lipid profile * Assessment & Plan Note - Benji Corbin MD - 04/30/2024 3:23 PM EST Associated Problem(s): Morbid obesity (CMS/HCC) Referred to [facility] in the past Patient has been counseled and educated about diet and exercise. Personal goal of weight loss discussedPatient has comorbidity of: DM Dietary Recommendations: Fruits, vegetables, whole grains, protein foods, and fat-free or low-fat dairy products are healthychoices. Eat different types of protein foods in your diet. This can include seafood, lean meats, poultry, beans, peas, lentils, nuts, seeds, soy products, and eggs. Limit foods and beverages higher in added sugars, saturated fat, and sodium. Exercise Recommendations: At least 150 minutes of moderate-intensity physical activity per week, or an equivalent combinationof moderate- and vigorous-intensity activity * Assessment & Plan Note - Benji Corbin MD - 04/30/2024 3:22 PM EST Associated Problem(s): Essential hypertension Patient with Hypertension currently controlled on a regimen of: Lisinopril 10 mg po daily Given adequate blood pressure control will continue with current regimen Most recent electrolytes, Bun and Creatinine done on: Lab Results Component Value Date NA 141 03/13/2023 NA 140 04/08/2022 K 4.1 03/13/2023 K 4.6 04/08/2022 CL 103 03/13/2023 CL 104 04/08/2022 BUN 12 03/13/2023 BUN 17 04/08/2022 CREATININE 0.80 03/13/2023 CREATININE 0.74 04/08/2022 were within normal limits. Will repeat patient advised to adhere to a low sodium diet, encouraged about medication compliance, counseled about weight loss. * Assessment & Plan Note - Benji Corbin MD - 04/30/2024 3:22 PM EST Associated Problem(s): Moderate persistent asthma No recent exacerbations * Assessment & Plan Note - Benji Corbin MD - 04/30/2024 3:22 PM EST Associated Problem(s): Chronic pain syndrome Patient is here for a follow up Ggod days and bad days He is on group home COT patient has OA hips, chronic low back pain, RSD of right foot On a narcotic regimen of : Oxycontin 60 mg po in AM and 60 mg at PM and Oxycodone 30 mg po BID, Pt has a medical marijuana card, but he states he rarely buys it because he cannot afford it. as well as Tizanidine 2 mg po q 8 hrs walking daily with care. Pt was evaluated by the pain management center in the past who agreed with current pain control with monitoring and considering re-imaging to strategise on pain management. Previously I have discussed considering to continue lowering his Oxycontin slowly but he is resistant to going any lower than what he is right now. I have explained to him that he is in a very high dose and this puts him at a higher risk of respiratory depression In the past I recommended acupuncture. He is phobic to needles MRI of the thoracic spine appeared normal 08/25/2018 MRI of LS spine 08/25/2018 showed multiple levels of herniated disks worst at L3- L4 level with moderate stenosis Previous visit I ordered MRIs on an open machine but given his body habitus this was not able to bedone. For now he would like to stay as is, does not want to go back to pain clinic at the moment but he is not ruling it out * Assessment & Plan Note - Benji Corbin MD - 04/30/2024 3:21 PM EST Associated Problem(s): Obstructive sleep apnea syndrome Pt here for a f/u Pt with known case of ARMANDO and class 3 obesity with increased symptoms after his CPAP machine broke New home sleep study was negative for ARMANDO which was extremely surprising Pt was convinced the study is not acurate Patient was referred to the Sleep Clinic. He had a repeat Sleep study Pt underwent split night sleep study. The baseline portion of the study was significant for severe degree of sleep apnea, mostly central events with hypopneas. The AHI was 50/hr and oxygen wale was 80%. He was trialed on CPAP 6- 14cm H2O and BiPAP 10/5 to 13/8. The obstructive events were eliminated, oxygenation improved but there were persistent central events. Pt reports he sleeps better, 4-6 hrs and daytime sleepiness has improved a lot. No more doze off and has more energy. He does not need to take a nap. * Assessment & Plan Note - Benji Corbin MD - 04/30/2024 3:18 PM EST Associated Problem(s): Type 2 diabetes mellitus ([facility]) Patient is here for a follow up DM Controlled He is on a regimen of Trulicity 0.75 once a week (injected by his significant other) and Pioglitazone 30 mg po daily In the past he was on Ozempic. Pt did not tolerate Metformin XR due to stomach upset. He has phobiato needles so he does not want to use insulin Hgb A1c 04/30/2024: 6.5 Eye exam: Pt was referred to our Eye care Program Microalbumin checked on: 12/09/2020 was: 3.2 Pt on an MALIK inhibitor (lisinopril ) Foot check not done Plan: Lower dose of Actos down to 15 mg po daily Pt is allergic to Asa 81 mg po daily (severe swelling) Pt has been advised to: adhere to diabetic diet Pt will come back to see me in 3 months check your blood sugars regularly check your feet on a daily basis documented in this encounter Plan of Treatment Upcoming Encounters Date Type Department Care Team (Late st Contact Info) Description 06/10/2024 1:30 PM EDT Telemedicine [facility] [address] [facility] [place] [phone] Isabelle Dia, RN [address] [facility] [place] 08/01/2024 2:00 PM EDT Office Visit [facility] [address] [place] [phone] Benji Hurtado MD [address] [facility] [place] [address] Scheduled Orders Name Type Priority Associated Diagnoses Orde r Schedule Comprehensive Metabolic Panel Lab Routine Essential hypertension Ordered: 04/30/2024 Scheduled Referrals Name Type Priority Associated Diagnoses Orde r Schedule Referral to Podiatry Outpatient Referral Routine Type 2 diabetes mellitus without complication, without long-term current use of insulin (CMS/HCC) Expected: 04/30/2024 (Approximate), Expires: 04/30/2025 documented as of this encounter Procedures Procedure Name Priority Date/Time Associated Diagnosis Comments LIPID PANEL, STANDARD Routine 04/30/2024 3:52 PM EST Mixed hyperlipidemia POCT GLYCATED HEMOGLOBIN, TOTAL Routine 04/30/2024 3:34 PM EST Type 2 diabetes mellitus without complication, without long-term current use of insulin (CMS/HCC) documented in this encounter Results * (ABNORMAL) Lipid Panel, Standard (04/30/2024 3:52 PM EST) Triglycerides 141 <150 mg/dL [facility] Comment:Desirable Triglyceri de: less than 150 mg/dLBorderline High Triglyceride 150-199 mg/dLHigh Triglyceride: 200-499 mg/dLVery High Triglyceride: greater than or equal to 5OO mg/dL Cholesterol 198 <200 mg/dL [facility] Comment:Desirable Cholestero l: less than 200 mg/dLBorderline High Cholesterol: 200-239 mg/dLHigh Cholesterol: greater than 239 mg/dL LDL Cholesterol Calculated 124(H) <100 mg/dL [facility] Comment:Desirable LDL: less than 100 mg/dLNear Optimal/Above Optimal LDL: 110- 129 mg/dLBorderline High LDL: 130-159 mg/dLHigh LDL: 160-189 mg/dLVery High LDL: greater than or equal to 190 mg/dL HDL Cholesterol 46 >40 mg/dL [facility] Comment:Desirable HDL: great er than 40 mg/dL Note: This HDL assay may give artificially low results in patients with liver disease. Blood Venous blood specimen / Unknown 04/30/2024 3:52 PM EST 04/30/2024 6:15 PM EST Benji Corbin MD LAB BLOOD ORDERABLES Final Result [facility] [address] [place] [phone] * (ABNORMAL) POCT HGB A1C (04/30/2024 3:34 PM EST) Hemoglobin A1C 6.5(A) 4.0 - 6.0 % QC Media Lot # [id number] Lot# Expiration Date Blood 04/30/2024 3:34 PM EST Benji Corbin MD POINT OF CARE TEST EN TER/EDIT ORDERABLES Final Result documented in this encounter Visit Diagnoses Diagnosis Obstructive sleep apnea syndrome- Primary Obstructive sleep apnea (adult) (pediatric) Type 2 diabetes mellitus without complication, without long-term current use of insulin (CMS/HCC) Chronic pain syndrome Moderate persistent asthma without complication Essential hypertension Unspecified essential hypertension Morbid obesity (CMS/HCC) Morbid obesity Mixed hyperlipidemia Dietary counseling Dietary surveillance and counseling Exercise counseling documented in this encounter Additional Health Concerns Assessment Noted Time PHQ-9 Depression Total Score: 7 06/01/19 24 1:38 PM EDT documented as of this encounter Care Teams Motorized Squad Lieutenant Relationship Specialty Start Date End Date Benji Hurtado MD [address] [place] [id number] PCP - General Internal Medicine 10/10/13 documented as of this encounter
--- OUTSIDE RECORDS SUMMARY | 2024-04-30 19:51 | XMS_ITS | Clinical Summary ---
Author Organization [employer] Address [address] 7 [place] [address] Care Team Providers Care Cat Dog Or Other Pet Groomer Name Role Phone Benji Hurtado MD Primary Care Provide r Allergies Active Allergy Reactions Criticality Noted Date Comments Acetaminophen 04/08/2022 Other reaction(s): stomach ache, Unknown Amitriptyline 10/20/2011 Other reaction(s): shaking Aspirin Swelling,Unknown 04/21/2010 Bee Pollen Swelling 04/08/2022 Bee Venom 07/26/2022 Other reaction(s): Unknown Blue Dyes (Parenteral) Nausea 06/01/2023 Cyclobenzaprine Rash Low 10/20/2011 Latex Rash Low 04/08/2022 Meperidine Hallucinations 10/20/2011 Metformin 11/12/2012 Other reaction(s): GI upset Morphine Headache,Hives High 04/21/2010 Other reaction(s): Hives Quetiapine 10/20/2011 Shellfish Allergy Hives 04/08/2022 Medications clonazePAM (KlonoPIN) 1 MG tablet Take 1 tablet by mouth every 8 (eight) hours. Active naloxone (Narcan) 4 mg/0.1 mL nasal spray Administer 0.1 mL into affected nostril(s). 022 Active tiotropium (Spiriva HandiHaler) 18 MCG inhalation capsule inhale 1 capsule by inhalation route every day 018 Active Continuous Blood Gluc Armature Repairer (FreeStyle Garett 2 [place]) deviceIndication s:Type 2 diabetes mellitus without complication, without long-term current use of insulin ([facility]) 1 applicator with breakfast, with lunch, and with evening meal. 1 each Active hydrOXYzine HCl (Atarax) 50 MG tablet Take 1 tablet by mouth if needed in the morning and at bedtime for anxiety. Active Vyvanse 60 MG capsule Take 1 capsule by mouth in the morning. Active mirtazapine (Remeron) 15 MG tablet TAKE 1/2 TO 1 TABLET BY MOUTH AT BEDTIME NEEDED FOR SLEEP Active glucose blood (FreeStyle Precision Almas Test) test strip Use as directed to check blood sugar 100 each 024 2024 Active albuterol (Ventolin HFA) 108 (90 Base) MCG/ACT inhalerIndicatio ns:Moderate persistent asthma without complication INHALE 2 PUFFS BY MOUTH EVERY 4 HOURS 18 g 1 Active rosuvastatin (Crestor) 5 MG tabletIndication s:Mixed hyperlipidemia Take 1 tablet (5 mg) by mouth Once per day. 30 tablet 2 Active Continuous Glucose Sensor (FreeStyle Garett 2 Sensor) miscIndications: Type 2 diabetes mellitus without complication, without long-term current use of insulin ([facility]) USE DIRECTED TO TEST BLOOD SUGAR BEFORE BREAKFAST, BEFORE LUNCH, AND BEFORE SUPPER. CHANGE EVERY 14 DAYS 2 each Active lisinopril 10 MG tabletIndication s:Essential hypertension TAKE 1 TABLET BY MOUTH EVERY DAY IN THE MORNING 90 tablet 3 Active omeprazole (PriLOSEC) [address] capsuleIndicatio ns:Epigastric pain TAKE 1 CAPSULE BY MOUTH EVERY DAY IN THE MORNING BEFORE BREAKFAST 90 capsule 3 024 Active Trulicity 0.75 MG/0.5ML solution pen-injector INJECT ONE PEN (=0.75MG) SUBCUTANEOUSLY ONCE A WEEK DIRECTED 2 mL 6 Active oxyCODONE (Roxicodone) 30 MG immediate release tabletIndication s:Chronic pain syndrome Take 1 tablet (30 mg) by mouth every 12 (twelve) hours if needed for severe pain for up to 28 days. Do not start before April 15, 2024. 56 tablet 025 2024 Active oxyCODONE ER (OxyCONTIN) 60 MG 12 hr tabletIndication s:Primary osteoarthritis of hip, unspecified laterality Take 1 tablet (60 mg) by mouth every 12 (twelve) hours for 28 days. Do not crush, chew, or split. Do not start before April 11, 2024. 56 tablet 025 2024 Active pioglitazone (Actos) 15 MG tabletIndication s:Type 2 diabetes mellitus without complication, without long-term current use of insulin ([facility]) Take 1 tablet (15 mg) by mouth Once per day. 30 tablet 11 025 2025 Active pioglitazone (Actos) 30 MG tablet TAKE 1 TABLET BY MOUTH EVERY DAY IN THE MORNING 90 tablet 3 024 2024 Discontinued(D ose adjustment) oxyCODONE (Roxicodone) 30 MG immediate release tabletIndication s:Chronic pain syndrome Take 1 tablet (30 mg) by mouth every 12 (twelve) hours if needed for severe pain for up to 28 days. Do not start before March 18, 2024. 56 tablet 025 2024 Discontinued(R eorder (will not trigger notification to Pharmacy)) oxyCODONE ER (OxyCONTIN) 60 MG 12 hr tabletIndication s:Primary osteoarthritis of hip, unspecified laterality Take 1 tablet (60 mg) by mouth every 12 (twelve) hours for 28 days. Do not crush, chew, or split. Do not start before March 14, 2024. 56 tablet 025 2024 Discontinued(R eorder (will not trigger notification to Pharmacy)) Active Problems Problem Noted Date Diagnosed Date Bilateral leg edema 02/28/2023 Assessment & Plan (02/28/2023 1:34 PM EST): Pt here with new onset 2 plus LE edema, denies any SOB, he states on and off he experiences that Etiology ? Cardiac VS renal VS Thyroid Dz BMP, LFTS, TSH, ECHO, BNP Follow up after testing Gastroesophageal reflux disease 08/25/2022 Chronic gastritis 03/22/2022 Assessment & Plan (08/23/2022 3:07 PM EDT): Pt here for a follow up Previous c/o epigastric abdominal pain unable to sleep on his belly as a result, describes the discomfort as constant, sometime burning. On exam he had a large ventral hernia. Denies any nausea, no vomiting, no diarrhea, he does admit to loosing weight I had recommended Omeprazole 20 mg po daily CBC, BMP, Lipase, LFTs Normal 02/2022 CT of abdomen done 04/11/2022 showed: Mild diverticulosis of the colon. Question small nonobstructing right renal stone. Small umbilical hernia containing fat. Pt evaluated by Dr Reyna GI underwent EGD 08/17/2022 showed : chronic helicobacter gastritis with moderate activity. Findings consistent with Valladares's esophagus. Dr Reyna recommended to repeat in 1 year Assessment & Plan (03/22/2022 1:41 PM EST): Pt here with c/o new onset of epigastric abdominal pain for at least a couple of months, unable to sleep on his belly as a result, describes the discomfort as constant, sometime burning. On exam h has a large ventral hernia. Denies any nausea, no vomiting, no diarrhea, he does admit to loosing weight Plan: Start Omeprazole 20 mg po daily, obtain CBC, BMP, Lipase, LFTs CT of abdomen to rule out strangulation of hernia ( doubt) GI consult, pt is a smoker and given age risk factors and c/o weight loss he needs an upper endoscopy Pt agreeable with plan Follow up after initial testing Recurrent major depressive episodes, moderate Assessment & Plan (03/22/2022 12:59 PM EST): Pt has a Hx of depression and severe anxiety he is currently seeing a therapist at [facility] ([facility]) and his Psychiatrist is Dr Iverson. Pt is on: Klonopin 1 mg TID and Vyvanze Currently reports he is stable although he struggles on a daily basis. Essential hypertension 12/18/2014 Assessment & Plan (04/30/2024 3:22 PM EST): Patient with Hypertension currently controlled on a [...] about medication compliance, counseled about weight loss. Assessment & Plan (01/04/2024 2:17 PM EST): Patient with Hypertension currently controlled on a regimen of: Lisinopril 10 mg po daily Given adequate blood pressure control will continue with current regimen Most recent electrolytes, Bun and Creatinine done on: 03/13/2023 were within normal limits. patient advised to adhere to a low sodium diet, encouraged about medication compliance, counseled about weight loss. Assessment & Plan (10/03/2023 3:18 PM EDT): Patient with Hypertension currently controlled on a regimen of: Lisinopril 10 mg po daily Given adequate blood pressure control will continue with current regimen Most recent electrolytes, Bun and Creatinine done on: 03/13/2023 were within normal limits. patient advised to adhere to a low sodium diet, encouraged about medication compliance, counseled about weight loss. Assessment & Plan (06/01/2023 12:33 PM EDT): Patient with Hypertension currently controlled on a regimen of: Lisinopril 10 mg po daily Given adequate blood pressure control will continue with current regimen Most recent electrolytes, Bun and Creatinine done on: 03/13/2023 were within normal limits. patient advised to adhere to a low sodium diet, encouraged about medication compliance, counseled about weight loss. Assessment & Plan (03/22/2022 12:56 PM EST): Patient with Hypertension currently controlled on a regimen of: Lisinopril 10 mg po daily Given adequate blood pressure control will continue with current regimen Most recent electrolytes, Bun and Creatinine done on: 12/09/2020 were within normal limits. BMP ordered patient advised to adhere to a low sodium diet, encouraged about medication compliance, counseled about weight loss. Morbid obesity 11/12/2012 Assessment & Plan (04/30/2024 3:23 PM EST): Referred to [facility] in the past Patient has been counseled and educated about diet and exercise. Personal goal of weight loss discussedPatient has comorbidity of: DM Dietary Recommendations: Fruits, vegetables, whole grains, protein foods, and fat-free or low-fat dairy products are healthy choices. Eat different types of protein foods in your diet. This can include seafood, lean meats, poultry, beans, peas, lentils, nuts, seeds, soy products, and eggs. Limit foods and beverages higher in added sugars, saturated fat, and sodium. Exercise Recommendations: At least 150 minutes of moderate-intensity physical activity per week, or an equivalent combination of moderate- and vigorous-intensity activity Assessment & Plan (02/28/2023 1:11 PM EST): Referred to [facility] in the past Patient has been counseled and educated about diet and exercise. Personal goal of weight loss discussedPatient has comorbidity of: DM Assessment & Plan (03/22/2022 1:00 PM EST): Referred to [facility] in the past Nonalcoholic steatohepatitis 11/12/2012 Type 2 diabetes mellitus 11/12/2012 Assessment & Plan (04/30/2024 3:44 PM EST): Patient is here for a follow up DM Controlled He is on a regimen of Trulicity 0.75 once a week (injected by his significant other) and Pioglitazone 30 mg po daily In the past he was on Ozempic. Pt did not tolerate Metformin XR due to stomach upset. He has phobia to needles so he does not want to [...] check your feet on a daily basis Assessment & Plan (01/04/2024 2:56 PM EST): Patient is here for a follow up DM Controlled He is on a regimen of Trulicity 0.75 once a week (injected by his significant other) and Pioglitazone 30 mg po daily In the past he was on Ozempic. Pt did not tolerate Metformin XR due to stomach upset. He has phobia to needles so he does not want to use insulin Hgb A1c 01/04/2024 : 6.6 Eye exam: Pt was referred to our Eye care Program Microalbumin checked on: 12/09/2020 was: 3.2 Pt on an MALIK inhibitor (lisinopril ) Foot check not done Plan: Continue regimen, He is no longer seeing Endocrinology Pt is allergic to Asa 81 mg po daily (severe swelling) Pt has been advised to: adhere to diabetic diet Pt will come back to see me in 4 months check your blood sugars regularly check your feet on a daily basis Assessment & Plan (10/03/2023 3:28 PM EDT): Pt is here for a follow up DM Controlled He is on a regimen of Trulicity 0.75 once a week (injected by his significant other) and Pioglitazone 30 mg po daily In the past he was on Ozempic. Pt did not tolerate Metformin XR due to stomach upset. He has phobia to needles so he does not want to use insulin Hgb A1c 10/03/2023 : 6.2 Eye exam: Pt was referred to our Eye care Program Microalbumin checked on: 12/09/2020 was: 3.2 Pt on an MALIK inhibitor (lisinopril ) Foot check not done Plan: Continue regimen, He is no longer seeing Endocrinology Pt is allergic to Asa 81 mg po daily (severe swelling) Pt has been advised to: adhere to diabetic diet Pt will come back to see me in 4 months check your blood sugars regularly check your feet on a daily basis Insurance denied Frestyle garett sensor Assessment & Plan (06/01/2023 12:33 PM EDT): Pt is here for a follow up DM Controlled He is on a regimen of Trulicity 0.75 once a week (injected by his significant other) and Pioglitazone 30 mg po daily In the past he was on Ozempic. Pt did not tolerate Metformin XR due to stomach upset. He has phobia to needles so he does not want to use insulin Hgb A1c 03/10/2023 : 5.9 From 6.1 Eye exam: Pt was referred to our Eye care Program Microalbumin checked on: 12/09/2020 was: 3.2 Pt on an MALIK inhibitor (lisinopril ) Foot check not done Plan: Continue regimen, He is no longer seeing Endocrinology Pt is allergic to Asa 81 mg po daily (severe swelling) Pt has been advised to: adhere to diabetic diet Pt will come back to see me in 4 months check your blood sugars regularly check your feet on a daily basis Insurance denied Frestyle garett sensor Assessment & Plan (02/28/2023 1:31 PM EST): Pt is here for a follow up DM Controlled He is on a regimen of Trulicity 0.75 once a week (injected by his significant other) and Pioglitazone 30 mg po daily In the past he was on Ozempic. Pt did not tolerate Metformin XR due to stomach upset. He has phobia to needles so he does not want to use insulin Hgb A1c 03/10/2023 : 5.9 From 6.1 Eye exam: Pt was referred to our Eye care Program Microalbumin checked on: 12/09/2020 was: 3.2 Pt on an MALIK inhibitor (lisinopril ) Foot check not done Plan: Continue regimen, He is no longer seeing Endocrinology Pt is allergic to Asa 81 mg po daily (severe swelling) Pt has been advised to: adhere to diabetic diet Pt will come back to see me in 4 months check your blood sugars regularly check your feet on a daily basis Insurance denied Frestyle garett sensor Assessment & Plan (08/23/2022 3:09 PM EDT): He has phobia to needles so he does not want to use insulin He is on a regimen of Trulicity 0.75 once a week (injected by his significant other) and Pioglitazone 30 mg po daily In the past he was on Ozempic Pt did not tolerate Metformin XR due to stomach upset. Hgb A1c 08/23/2022: 6.1 BG average 188 Eye exam: Pt was referred to our Eye care Program Microalbumin checked on: 12/09/2020 was: 3.2 Pt on an MALIK inhibitor (lisinopril ) Foot check not done Plan: Continue regimen, He is no longer seeing Endocrinology Pt is allergic to Asa 81 mg po daily (severe swelling) Pt has been advised to: adhere to diabetic diet Pt will come back to see me in 4 months check your blood sugars regularly check your feet on a daily basis Pt has a phobia to needles. Will prescribe the Frestyle garett sensor Assessment & Plan (03/22/2022 12:55 PM EST): He has phobia to needles so he does not want to use insulin He is on a regimen of Trulicity 0.75 once a week (injected by his significant other) and Pioglitazone 30 mg po daily In the past he was on Ozempic Pt did not tolerate Metformin XR due to stomach upset. Hgb A1c 03/22/2022 was: BG average Eye exam: Pt was referred to our Eye care Program Microalbumin checked on: 12/09/2020 was: 3.2 Pt on an MALIK inhibitor (lisinopril ) Foot check not done Plan: Continue regimen, He is no longer seeing Endocrinology Pt is allergic to Asa 81 mg po daily (severe swelling) Pt has been advised to: adhere to diabetic diet Pt will come back to see me in 3 months check your blood sugars regularly check your feet on a daily basis Moderate persistent asthma 12/02/2011 Assessment & Plan (04/30/2024 3:22 PM EST): No recent exacerbations Assessment & Plan (06/01/2023 12:32 PM EDT): No recent exacerbations Assessment & Plan (03/22/2022 12:58 PM EST): no recent exacerbations On Advair and Spiriva and pro-air prn Obstructive sleep apnea syndrome 12/02/2011 Assessment & Plan (04/30/2024 3:21 PM EST): Pt here for a f/u Pt with [...] was 80%. He was trialed on CPAP 6-14cm H2O and BiPAP 12/01 to 13/. The obstructive events were eliminated, oxygenation improved but there were persistent central events. Pt reports he sleeps better, 4-6 hrs and daytime sleepiness has improved a lot. No more doze off and has more energy. He does not need to take a nap. Assessment & Plan (08/23/2022 2:51 PM EDT): Pt with known case of ARMANDO and class 3 obesity with increased symptoms after his CPAP machine broke New home sleep study was negative for ARMANDO which was extremely surprising Pt was convinced the study is not acurate Patient was referred to the Sleep Clinic. He was asked to have a repeat Sleep study Assessment & Plan (03/22/2022 12:52 PM EST): Pt with known case of ARMANDO and class 3 obesity with increased symptoms after his CPAP machine broke New home sleep study was negative for ARMANDO which was extremely surprising Pt was convinced the study is not acurate Patient was referred to the Sleep Clinic previous visit. Osteoarthritis of hip 12/02/2011 Smoker 12/02/2011 Assessment & Plan (03/22/2022 1:00 PM EST): Counseled and educated about tobacco cessation. 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 For now he would like to stay as is, does not want to go back to pain clinic at the moment but he is not ruling it out Assessment & Plan (03/22/2022 12:58 PM EST): Patient is on care home taper/titration down w/ oxycontin dose. patient has OA hips, chronic low back [...] q 8 hrs walking daily with care. i have requested records from the Medical provider who gave him the marijuana card. I have discussed with him that the only way I can continue to prescribe narcotics for him is if he uses the marijuana in different methods such as vaporized or topical. Pt agreeable. Pt was evaluated by the pain management center in the past who agreed with current pain control with monitoring and considering re-imaging to strategise on pain management. Previous visit I ordered MRIs on an open machine but given his body habitus this was not able to be done. Previously I have discussed considering to continue [...] at L3- L4 level with moderate stenosis For now he would like to stay as is, does not want to go back to pain clinic at the moment but he is not ruling it out Mixed hyperlipidemia 09/23/2011 Assessment & Plan (04/30/2024 3:39 PM EST): Patient with elevated lipids. Most recent lipid [...] for weight loss. Plan: repeat Lipid profile Assessment & Plan (10/03/2023 3:29 PM EDT): Patient with elevated lipids. Most recent lipid profile from: Lab Results Component Value Date TRIG 197 (H) 10/02/2023 TRIG 145 04/08/2022 CHOL 212 (H) 10/02/2023 LDLCHOLCAL 126 (H) 10/02/2023 HDL 47 10/02/2023 Pt tells me he did not tolerate the Atorvastatin 20 mg po qhs, previously Simvastatin, caused him stomach upset . He is resistant to consider any other statin advised to try to adhere to a low cholesterol diet, counseled and educated about diet and exercise, Patient encouraged to come up with a personal goal for weight loss. Plan: Pt agreeable to try low dose Crestor 5 mg po qhs Assessment & Plan (06/01/2023 1:47 PM EDT): Patient with elevated lipids. Most recent lipid profile from: 12/09/2020 shows a total cholesterol of: 217 triglycerides of: 224 HDL of: 50 and LDL of: 131 Pt tells me he did not tolerate the Atorvastatin 20 mg po qhs, previously Simvastatin, caused him stomach upset . He is resistant to consider any other statin advised to try to adhere to a low cholesterol diet, counseled and educated about diet and exercise, Patient encouraged to come up with a personal goal for weight loss. Plan: Repeat Lipid profile, discussed dietary recommendations Assessment & Plan (03/22/2022 12:57 PM EST): Patient with elevated lipids. Most recent lipid profile from: 12/09/2020 shows a total cholesterol of: 217 triglycerides of: 224 HDL of: 50 and LDL of: 131 Pt tells me he did not tolerate the Atorvastatin 20 mg po qhs, previously Simvastatin, caused him stomach upset . He is resistant to consider any other statin advised to try to adhere to a low cholesterol diet, counseled and educated about diet and exercise, Patient encouraged to come up with a personal goal for weight loss. Plan: Repeat Lipid profile, discussed dietary recommendations Encounters Date Type Department Care Team Description 04/30/2024 3:00 PM EST Office Visit [address] [address] Benji Hurtado MD Obstructive sleep apnea syndrome (Primary Dx); Type 2 diabetes mellitus without complication, without long-term current use of insulin ([facility]); Chronic pain syndrome; Moderate persistent asthma without complication; Essential hypertension; Morbid obesity ([facility]); Mixed hyperlipidemia; Dietary counseling; Exercise counseling 04/23/2024 Patient Outreach [address] [address] Benji Hurtado MD Pre-visit Planning (Pre-visit planning - LVM ) 04/12/[address] [address] Benji Hurtado MD Chart Prep 04/08/2024 Refill [facility] [address] [place] [address] Benji Hurtado MD Chronic pain syndrome; Primary osteoarthritis of hip, unspecified laterality 03/29/2024 9:00 AM EST Clinical Support [address] [address] Isabelle Dia, radiology manager pain syndrome 03/29/2024 Telephone [facility] [address] [place] [address] Isabelle Dia RN 03/29/2024 Travel 03/14/2024 Telephone [facility] [address] [place] [address] Isabelle Dia, show horse driver 03/14/[address] [address] Benji Hurtado MD Medication Question 03/11/2024 Refill [facility] [address] [place] [address] Benji Hurtado MD Chronic pain syndrome; Primary osteoarthritis of hip, unspecified laterality 02/15/2024 Telephone [facility] [address] [place], [place] [phone] Benji Hurtado MD Prior Authorization 02/12/2024 Refill [facility] [address] [place] [address] Benji Hurtado MD Chronic pain syndrome; Primary osteoarthritis of hip, unspecified laterality from Last 3 Months Immunizations Name Administration Dates Next Due DTP 11/27/1981, 1,05/30/1980,03/24 Hep B, Adolescent or Pediatric 12/01/1998,1996,09/25/1996 IPV 11/27/1981, 1,05/30/1980,03/24 Influenza injectable quadriv alent IIV4 with preservative 12/01/2015,12/18/2014 Influenza injectable quadriv alent preservative free 02/28/2023,03/22/2022,05/06/2021,12/06,01/30/2018,12/29/2016 Influenza, IIV3, injectable 12/20/2022, 4,12/10/2007 Influenza, Split (incl. madeleine fied surface antigen) 11/13/2012,12/02/2011 Influenza, seasonal, injecta ble, preservative free 01/04/2024 MMR 09/25/1996,06/13/1991 Moderna Covid-19 Vaccine 12+ 05/06/2021,07/29/19 21,07/01/2020 Moderna Covid-19 Vaccine 6+ Bivalent 03/22/2022 Pfizer Covid-19 Vaccine 12+ 01/04/2024, Pneumococcal Polysaccharide PPSV23 12/02/2011,,01/25/2000 TD (adult), 2 Lf tetanus tox oid, preservative free, adsorbed 08/03/2006,03/30/1990 Tdap 11/13/2012 Social History Tobacco Use Types Packs/Day Years Used Date Smoking Tobacco: Every Day Cigarettes Passive Smoke Exposure: Current Smokeless Tobacco: Never Tobacco Cessation:Ready to Q uit: Not Asked; Counseling Given: Not Answered Depression Answer Date Recorded Patient Health Questionnaire-9 [...] Orientation Straight 12/27/2021 10 :14 AM EDT Last Filed Vital Signs Vital Sign Reading [...] Mass Index 41.68 04/30/2024 3:21 PM EST Plan of Treatment Upcoming Encounters Date Type Department Care Team (Late st Contact Info) Description 06/10/2024 1:30 PM EDT Telemedicine [facility] [address] [place] [address] Isabelle Dia, MARILUZ [address] [place] [address] 08/01/2024 2:00 PM EDT Office Visit [facility] [address] [place] [address] Benji Hurtado MD [address] [place] [address] Health Maintenance Due Date Last Done Comments HIV Screening 1980 Diabetes: Foot Exam 11/29/1989 Eye Exam 11/29/1989 Family Planning (PISQ) 11/29/1994 Hepatitis C Screening 11/29/1997 Hepatitis A Vaccines (1 of 2 - Risk 2-dose series) 11/29/1998 Pneumococcal Vaccine: Pediatrics (0 to 5 Years) and At-Risk Patients (6 to 49) Years) (2 of 2 - PCV) 12/01/2012 12/02/2011, 09/05/2011, 01/25/2000 DTaP/Tdap/Td Vaccines (7 - Td or Tdap) 11/13/2022 11/13/2012, 08/03/2006, 03/30/1990, Additional history exists Diabetes: Urine Protein Screening 04/08/2023 04/30/2024, 04/08/2022, 12/09/2020, Additional history exists Depression Screening 05/31/2024 06/01/2023, 06/01/19 24 Lipid Panel 10/01/2024 04/30/2024, 08/0 06/2023, 04/08/2022, Additional history exists Diabetes: Hemoglobin A1C 10/31/2024 025, 01/04/2024, 10/03/2023, Additional history exists Tobacco Screening 01/03/2025 01/04/2024 Alcohol/Substance Use Screening 04/30/2025 04/30/2024 SDOH Screening 04/30/2025 04/30/2024 Zoster Vaccines (1 of 2) 11/29/2029 RSV Patients and Patients Aged 60 years or older (1 - 1-dose 75+ series) 11/29/2054 IPV Vaccines Completed 11/27/1981, 08/29, 05/30/1980, Additional history exists Hepatitis B Vaccines Completed 12/01/1998, 10/24/1996, 09/25/1996 COVID-19 Vaccine Completed 01/04/2024, 03/2023, 03/22/2022, Additional history exists Influenza Vaccine Completed 01/04/2024, , 12/20/2022, Additional history exists HIB Vaccines Aged Out No longer eligi ble based on patient's age to complete this topic HPV Vaccines Aged Out No longer eligi ble based on patient's age to complete this topic Meningococcal Vaccine Aged Out No tae varun eligible based on patient's age to complete this topic RSV under 20 months Aged Out No longe r eligible based on patient's age to complete this topic Rotavirus Vaccines Aged Out No longer eligible based on patient's age to complete this topic Procedures Procedure Name Priority Date/Time Associated Diagnosis Comments LIPID PANEL, STANDARD Routine 04/30/2024 3:52 PM EST Mixed hyperlipidemia ALBUMIN, RANDOM URINE W/CREATININE Routine 04/30/2024 3:52 PM EST Type 2 diabetes mellitus without complication, without long-term current use of insulin ([facility]/HCC) COMPREHENSIVE METABOLIC PANEL Routine 04/30/2024 3:52 PM EST Type 2 diabetes mellitus without complication, without long-term current use of insulin (CMS/HCC) POCT GLYCATED HEMOGLOBIN, TOTAL Routine 04/30/2024 3:34 PM EST Type 2 diabetes mellitus without complication, without long-term current use of insulin (CMS/HCC) POCT JAKE-14 URINE DRUG SCREEN Routine 03/29/2024 9:37 AM EST Chronic pain syndrome from Last 3 Months Results * (ABNORMAL) Albumin, Random Urine W/Creatinine (04/30/2024 3:52 PM EST) Creatinine, Urine 144.57 mg/dL [facility] Microalbumin Urine 78.0 mg/L [facility] Microalbum Creatinine Ratio Ur 53.9(H) <30 ug/mg cr [facility] Comment:Albumin/Creatinine R atio Reference Ranges: Normal: < 30 ug/mg creatinine Microalbuminuria: 30 - 300 ug/mg creatinineClinical Albuminuria: > 300 ug/mg creatinine Urine (Urine, Random) 04/30/2024 3:52 PM EST 04/30/2024 6:26 PM EST us Benji Corbin MD LAB URINE ORDERABLES Final Result Performing Organization Address City/State/[facility] Co de Phone Number [facility] [address] [place] [phone] * (ABNORMAL) Lipid Panel, Standard (04/30/2024 3:52 PM EST) Triglycerides 141 <150 mg/dL [facility] Comment:Desirable Triglyceri de: less than 150 mg/dLBorderline High Triglyceride 150-199 mg/dLHigh Triglyceride: 200-499 mg/dLVery High Triglyceride: greater than or equal to 5OO mg/dL Cholesterol 198 <200 mg/dL [facility] Comment:Desirable Cholestero l: less than 200 mg/dLBorderline High Cholesterol: 200-239 mg/dLHigh Cholesterol: greater than 239 mg/dL LDL Cholesterol Calculated 124(H) <100 mg/dL [facility] Comment:Desirable LDL: less than 100 mg/dLNear Optimal/Above Optimal LDL: 110- 129 mg/dLBorderline High LDL: 130-159 mg/dLHigh LDL: 160-189 mg/dLVery High LDL: greater than or equal to 190 mg/dL HDL Cholesterol 46 >40 mg/dL [facility] Comment:Desirable HDL: great er than 40 mg/dL Note: This HDL assay may give artificially low results in patients with liver disease. Blood Venous blood specimen / Unknown 04/30/2024 3:52 PM EST 04/30/2024 6:15 PM EST us Benji Corbin MD LAB BLOOD ORDERABLES Final Result [facility] [address] [place] [phone] [phone] * (ABNORMAL) Comprehensive Metabolic Panel (04/30/2024 3:52 PM EST) Sodium 140 135 - 145 mmol/L [facility] Potassium 5.2(H) 3.3 - 5.1 mmol/L [facility] Chloride 107 96 - 108 mmol/L [facility] Carbon Dioxide 25 22 - 29 mmol/L [facility] Anion Gap 13 12 - 20 [facility] Urea Nitrogen (BUN) 22(H) 9 - 16 mg/dL [facility] Creatinine, Serum 0.88 0.5 - 1.4 mg/dL [facility] Estimated Glomerular Filt Rate >60 [facility] Comment:Chronic Kidney Disea se: Estimated GFR < 60 mL/min/1.85t3Igfdef Kidney Disease: Estimated GFR < 15 mL/min/1.73m2 Glucose 121(H) 60 - 115 mg/dL [facility] Calcium 9.0 8.4 - 10.2 mg/dL [facility] Bilirubin, Total 0.4 0.0 - 1.0 mg/dL [facility] Aspartate Amino Transferase 20 5 - 37 U/L [facility] Alanine Aminotransferase 13 0 - 40 U/L [facility] Total Protein 7.9 6.5 - 8.0 g/dL [facility] Albumin Level 4.0 3.5 - 5.0 g/dL [facility] Alkaline Phosphatase 93 39 - 117 U/L [facility] Blood Venous blood specimen / Unknown 04/30/2024 3:52 PM EST 04/30/2024 6:15 PM EST us Benji Corbin MD LAB BLOOD ORDERABLES Final Result [facility] [address] [place] [phone] [phone] * (ABNORMAL) POCT HGB A1C (04/30/2024 3:34 PM EST) Hemoglobin A1C 6.5(A) 4.0 - 6.0 % QC Media Lot # [id number] Lot# Expiration Date Blood 04/30/2024 3:34 PM EST us Benji Corbin MD POINT OF CARE TEST EN TER/EDIT ORDERABLES Final Result * POCT JAKE-14 Urine Drug Screen (03/29/2024 9:37 AM EST) THC Positive Oxycodone Screen, Urine Positive Urine Urine specimen obtained by clean catch procedure / Unknown 03/29/2024 9:37 AM EST us Benji Corbin MD POINT OF CARE TEST EN TER/EDIT ORDERABLES Final Result from Last [address] [place] [address] C3 Care Teams Cat Dog Or Other Pet Groomer Relationship Specialty Start Date End Date Benji Hurtado MD [address] [place] [phone] PCP - General Internal Medicine 10/10/13
--- OUTSIDE RECORDS SUMMARY | 2024-04-30 19:51 | XMS_ITS | Encounter Summary ---
Author Organization [employer] Address [address] [facility] 7 [place] [address] Care Team Providers Care Assembler Truck Trailer Name Role Phone Benji Hurtado MD Primary Care Provide r Reason for Visit * Reason Onset Date Comments Med Refill 09/30/2022 Encounter Details Date Type Department Care Team (Late st Contact Info) Description 09/30/2022 Telephone [facility] MEDICINE [address] [place] [address] Benji Hurtado MD [address] [place] [address] Med Refill Social History Tobacco Use Types [...] * Telephone Encounter - Chasidy Rodriguez - 09/30/2022 4:24 PM EDT Tc from pt requesting medication refill on oxyCODONE ER (OxyCONTIN) 60 MG 12 hr tablet documented in this encounter Plan of Treatment Upcoming Encounters Date Type Department Care Team (Late st Contact Info) Description 06/10/2024 1:30 PM EDT Telemedicine [facility] PEDS [address] [place] [address] Isabelle Dia, RN [address] [place], [place] 08/01/2024 2:00 PM EDT Office Visit [facility] [address] [place] [address] Benji Hurtado MD [address] [place] [address] documented as of this encounter Visit Diagnoses Not on filedocumented in this encounter Additional Health Concerns Assessment Noted Time PHQ-9 Depression Total Score: 9 03/22/19 23 1:26 PM EST documented as of this encounter Care Teams Assembler Truck Trailer Relationship Specialty Start Date End Date Benji Hurtado MD [address] [place] [address] PCP - General Internal Medicine 10/10/13 documented as of this encounter
--- OUTSIDE RECORDS SUMMARY | 2024-04-30 19:51 | XMS_ITS ---
Author Organization [facility] Address [address] [place] [phone] Care Team Providers Care Consultant Electronics Name Role Phone Tiana Corbin MD, Benji Primary Care Provide r Chai Aguillon [phone] REASON FOR VISIT cancelled appt Encounters Encounter Location Date Provider Diagnosis [facility] [address] [place] [address] 01/11/2023 Chai Reyna PLAN OF TREATMENT No Information
== END 2024-04-30 15:52 | disposition home or self-care (01) ==
LOC: HO.HHCL 15:51
PROVIDERS: Visit Provider Internal Medicine
DX: E87.5 Hyperkalemia (principal); E78.2 Mixed hyperlipidemia; E11.9 Type 2 diabetes mellitus without complications
CPT/HCPCS: 36415; 80053; 80061; 82043; 82570

== ENCOUNTER 2024-05-09 12:06 | Outpatient (REF) | payer MEDICAID, SELFPAY ==
[2024-05-09 13:51] LABS: Alanine Aminotransferase 15 U/L (0-40); Albumin Level 4.2 g/dL (3.5-5.0); Alkaline Phosphatase 92 U/L (39-117); Anion Gap 14 (12-20); Aspartate Amino Transferase 22 U/L (5-37); Bilirubin Total 0.7 mg/dL (0.0-1.0); Blood Urea Nitrogen 23 mg/dL (9-16); Calcium 9.4 mg/dL (8.4-10.2); Carbon Dioxide 23 mmol/L (22-29); Chloride 107 mmol/L (96-108); Estimated Glomerular Filt Rate > 60; Glucose Random 127 mg/dL (60-115); Potassium 4.7 mmol/L (3.3-5.1); Sodium 139 mmol/L (135-145); Total Protein 8.2 g/dL (6.5-8.0)
--- OUTSIDE RECORDS SUMMARY | 2024-05-09 15:28 | XMS_ITS | Encounter Summary ---
Author Organization [employer] Address 75 [facility] 7t [place] [address] Care Team Providers Care Small Electric Engine Technician Name Role Phone Benji Hurtado MD Primary Care Provide r Reason for Visit * Reason Onset Date Comments Medication Question 03/14/2024 Encounter Details Date Type Department Care Team ([facility] st Contact Info) Description 03/14/2024 Telephone [facility] MEDICINE [address] [place] [address] Benji Hurtado MD [address] [place] [address] Medication Question Social History Tobacco Use Types [...] Info) Description 06/10/2024 1:30 PM EDT Telemedicine [facility] MED [facility] PEDS [address] [place] [address] Isabelle Dia, RN [address] [place] [address] 08/01/2024 2:00 PM EDT Office Visit [facility] MED[facility]INE [address] [place] [address] Benji Hurtado MD [address] [place] [address] documented as of this encounter Visit Diagnoses Not on filedocumented in this encounter Additional Health Concerns Assessment Noted Time PHQ-9 Depression Total Score: 7 06/01/19 24 1:38 PM EDT documented as of this encounter Care Teams Small Electric Engine Technician Relationship Specialty Start Date End Date Benji Hurtado MD [address] [place] [phone] PCP - General Internal Medicine 10/10/13 documented as of this encounter
--- OUTSIDE RECORDS SUMMARY | 2024-05-09 15:28 | XMS_ITS | Encounter Summary ---
Author Organization [employer] Address 75 [facility] 7t [place] [address] Care Team Providers Care Blood And Plasma Laboratory Assistant Name Role Phone Benji Hurtado MD Primary Care Provide r Reason for Visit * Reason Onset Date Comments Med Refill 01/17/2024 Encounter Details Date Type Department Care Team (Late st Contact Info) Description 01/17/2024 Telephone [facility] MEDICINE [address] [place] [address] Benji Hurtado MD [address] [place] [address] Med Refill Social History Tobacco Use Types [...] 12 hr tablet To be sent to: [facility] - [place], [place] - [address] [place] [address] documented in this encounter Plan of Treatment Upcoming Encounters Date Type Department Care Team ([facility] st Contact Info) Description 06/10/2024 1:30 PM EDT Telemedicine [facility] MED & PEDS [address] [place] [address] Isabelle Dia, RN [address] [place] [address] 08/01/2024 2:00 PM EDT Office Visit [facility] MEDICINE [address] [place] [address] Benji Hurtado MD [address] [place] [address] documented as of this encounter Visit Diagnoses Not on filedocumented in this encounter Additional Health Concerns Assessment Noted Time PHQ-9 Depression Total Score: 7 06/01/19 24 1:38 PM EDT documented as of this encounter Care Teams Blood And Plasma Laboratory Assistant Relationship Specialty Start Date End Date Benji Hurtado MD [address] [place] [address] PCP - General Internal Medicine 10/10/13 documented as of this encounter
--- OUTSIDE RECORDS SUMMARY | 2024-05-09 15:28 | XMS_ITS | Encounter Summary ---
Author Organization [employer] Address 75 [facility] 7 [place] [address] Care Team Providers Care Materials Assistant Name Role Phone Benji Hurtado MD Primary Care Provide r Reason for Visit * Reason Comments Med Refill Encounter Details Date Type Department Care Team (Late st Contact Info) Description 07/30/2022 Refill [facility] MEDICINE [address] [place] [address] Dione Martin ANP [address] [place] [address] Social History Tobacco Use Types Packs/Day Years [...] Info) Description 06/10/2024 1:30 PM EDT Telemedicine [facility] MED [facility] PEDS [address] [place] [address] Isabelle Dia, MARILUZ [address] [place] [address] 08/01/2024 2:00 PM EDT Office Visit [facility] MED[facility]INE [address] [place] [address] Benji Hurtado MD [address] [place], [place] [phone] documented as of this encounter Visit Diagnoses Not on filedocumented in this encounter Additional Health Concerns Assessment Noted Time PHQ-9 Depression Total Score: 9 03/22/19 23 1:26 PM EST documented as of this encounter Care Teams Materials Assistant Relationship Specialty Start Date End Date Benji Hurtado MD [address] [place] [address] PCP - General Internal Medicine 10/10/13 documented as of this encounter
--- OUTSIDE RECORDS SUMMARY | 2024-05-09 15:28 | XMS_ITS | Encounter Summary ---
Author Organization [employer] Address 75 [facility] 7 [place] [address] Care Team Providers Care Center Medical Specialist Name Role Phone Benji Hurtado MD Primary Care Provide r Reason for Visit * Reason Onset Date Comments Med Refill 06/10/2022 Encounter Details Date Type Department Care Team (Late st Contact Info) Description 06/10/2022 Telephone [facility] MEDICINE [address] [place] [address] Benji Hurtado MD [address] [place] [address] Med Refill Social History Tobacco Use Types [...] MG 12 hr tablet Please sent to [facility] - [place], [place] - [address] [place] [address] documented in this encounter Plan of Treatment Upcoming Encounters Date Type Department Care Team (Late st Contact Info) Description 06/10/2024 1:30 PM EDT Telemedicine [facility] CH[facility] MED & PEDS [address] [place] [address] Isabelle Dia, RN [address] [place] [address] 08/01/2024 2:00 PM EDT Office Visit [facility] MEDICINE [address] [place] [address] Benji Hurtado MD [address] [place] [address] documented as of this encounter Visit Diagnoses Not on filedocumented in this encounter Additional Health Concerns Assessment Noted Time PHQ-9 Depression Total Score: 9 03/22/19 23 1:26 PM EST documented as of this encounter Care Teams Center Medical Specialist Relationship Specialty Start Date End Date Benji Hurtado MD [address] [place] [address] PCP - General Internal Medicine 10/10/13 documented as of this encounter
--- OUTSIDE RECORDS SUMMARY | 2024-05-09 15:28 | XMS_ITS | Encounter Summary ---
Author Organization [employer] Address 75 [facility] 7 [place] [address] Care Team Providers Care Garage Helper Name Role Phone Benji Hurtado MD Primary Care Provide r Reason for Visit * Reason Onset Date Comments Med Refill 09/06/2022 Encounter Details Date Type Department Care Team (Late st Contact Info) Description 09/06/2022 Telephone [facility] MEDICINE [address] [place] [address] Benji Hurtado MD [address] [place] [address] Med Refill Social History Tobacco Use Types [...] Info) Description 06/10/2024 1:30 PM EDT Telemedicine [facility] MED [facility] PEDS [address] [place] [address] Isabelle iDa, RN [address] [place] [address] 08/01/2024 2:00 PM EDT Office Visit [facility] MED[facility]INE [address] [place] [address] Benji Hurtado MD [address] [place] [address] documented as of this encounter Visit Diagnoses Not on filedocumented in this encounter Additional Health Concerns Assessment Noted Time PHQ-9 Depression Total Score: 9 03/22/19 23 1:26 PM EST documented as of this encounter Care Teams Garage Helper Relationship Specialty Start Date End Date Benji Hurtado MD [address] [place], [place] [phone] PCP - General Internal Medicine 10/10/13 documented as of this encounter
--- OUTSIDE RECORDS SUMMARY | 2024-05-09 15:28 | XMS_ITS | Encounter Summary ---
Author Organization [employer] Address 75 [facility] 7t [place] [address] Care Team Providers Care Chief Safety Officer Name Role Phone Benji Hurtado MD Primary Care Provide r Reason for Visit * Reason Onset Date Comments PA 09/21/2023 Encounter Details Date Type Department Care Team ([facility] st Contact Info) Description 09/21/2023 Telephone [facility] MEDICINE [address] [place] [address] Benji Hurtado MD [address] [place] [address] PA Social History Tobacco Use Types Packs/Day [...] Upcoming Encounters Date Type Department Care Team ([facility] st Contact Info) Description 06/10/2024 1:30 PM EDT Telemedicine [facility] [address] [place] [address] Isabelle Dia, RN [address] [place] [address] 08/01/2024 2:00 PM EDT Office Visit [facility] MEDICINE [address] [place] [address] Benji Hurtado MD [address] [facility] [place] [address] documented as of this encounter Visit Diagnoses Not on filedocumented in this encounter Additional Health Concerns Assessment Noted Time PHQ-9 Depression Total Score: 7 06/01/19 24 1:38 PM EDT documented as of this encounter Care Teams Chief Safety Officer Relationship Specialty Start Date End [place] [address] PCP - General Internal Medicine 10/10/13 documented as of this encounter
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
--- OUTSIDE RECORDS SUMMARY | 2024-05-09 15:28 | XMS_ITS | Encounter Summary ---
Author Organization [employer] Address [address] [facility] 7 [place] [address] Care Team Providers Care Senior Java Programmer Name Role Phone Benji Hurtado MD Primary Care Provide r Reason for Visit * Reason Onset Date Comments Med Refill 07/22/2023 Encounter Details Date Type Department Care Team (Late st Contact Info) Description 07/22/2023 Refill [facility] [address] [place] [address] Benji Hurtado MD [address] [place] [address] Social History Tobacco Use Types Packs/Day Years [...] 06/10/2024 1:30 PM EDT Telemedicine [facility] [address] [place] [address] Isabelle Dia, RN [address] [place] [address] 08/01/2024 2:00 PM EDT Office Visit [facility] [address] [place] [address] Benji Hurtado MD [address] [place] [address] documented as of this encounter Visit Diagnoses Not on filedocumented in this encounter Additional Health Concerns Assessment Noted Time PHQ-9 Depression Total Score: 7 06/01/19 24 1:38 PM EDT documented as of this encounter Care Teams Senior Java Programmer Relationship Specialty Start Date End Date Benji Hurtado MD [address] [place] [address] PCP - General Internal Medicine 10/10/13 documented as of this encounter
--- OUTSIDE RECORDS SUMMARY | 2024-05-09 15:28 | XMS_ITS | Encounter Summary ---
Author Organization [employer] Address [address] [facility] 7t [place] [address] Care Team Providers Care Construction Framer Name Role Phone Benji Hurtado MD Primary Care Provide r Reason for Visit * Reason Comments Med Refill Encounter Details Date Type Department Care Team (Late st Contact Info) Description 06/15/2022 Refill [facility] [address] [place] [address] Benji Hurtado MD [address] [place] [address] Primary osteoarthritis of hip, unspecified laterality Social [...] Info) Description 06/10/2024 1:30 PM EDT Telemedicine [facility] [address] [place] [address] Isabelle Dia, RN 505 [place] [address] 08/01/2024 2:00 PM EDT Office Visit [facility] [address] [place] [address] Benji Hurtado MD [address] [place] [address] documented as of this encounter Visit Diagnoses Diagnosis Primary osteoarthritis of hip, unspecified laterality documented in this encounter Additional Health Concerns Assessment Noted Time PHQ-9 Depression Total Score: 9 03/22/19 23 1:26 PM EST documented as of this encounter Care Teams Construction Framer Relationship Specialty Start Date End Date Benji Hurtado MD [address] [place] [address] PCP - General Internal Medicine 10/10/13 documented as of this encounter
--- OUTSIDE RECORDS SUMMARY | 2024-05-09 15:28 | XMS_ITS | Encounter Summary ---
Author Organization [employer] Address [address] [facility] [address] 7[address] [place] [address] Care Team Providers Care Package Center Supervisor Name Role Phone Benji Hurtado MD Primary Care Provide r Reason for Visit * Reason Comments Med Refill Encounter Details Date Type Department Care Team ([facility] st Contact Info) Description 07/28/2023 Refill [facility] [address] [place] [address] Benji Hurtado MD [address] [place] [address] Primary osteoarthritis of hip, unspecified laterality Social [...] Info) Description 06/10/2024 1:30 PM EDT Telemedicine [facility] [address] [place] [address] Isabelle Dia, MARILUZ 505 [place] [address] 08/01/2024 2:00 PM EDT Office Visit [facility] [address] [place] [address] Benji Hurtado MD [address] [place] [address] documented as of this encounter Visit Diagnoses Diagnosis Primary osteoarthritis of hip, unspecified laterality documented in this encounter Additional Health Concerns Assessment Noted Time PHQ-9 Depression Total Score: 7 06/01/19 24 1:38 PM EDT documented as of this encounter Care Teams Package Center Supervisor Relationship Specialty Start Date End Date Benji Hurtado MD [address] [place] [address] PCP - General Internal Medicine 10/10/13 documented as of this encounter
--- OUTSIDE RECORDS SUMMARY | 2024-05-09 15:28 | XMS_ITS ---
Author Organization [facility] Address [address] [place] [address] Care Team Providers Care Plating Tank Operator Apprentice Name Role Phone Tiana Corbin MD, Benji Primary Care Provide Chai Pope [phone] REASON FOR VISIT Patient presents today for gerd,hiatal hernia Encounters Encounter Location Date Provider Diagnosis [facility] [address] [place] [address] 01/11/2023 Chai Reyna Plan Of Treatment No Information Progress Notes * DANIEL KEARNSRODOB:1980 (43 yo M)Acc No.[id number]:01/11/2023 Progress Notes Patient:HILARIO VALORIE Provider:?Chai Reyna MD :1980???Age:42 Y???Sex:Male Joaquim e:01/11/2023 Address:[address] [place], [place] [address] Pcp:Benji mares MD Subjective: * Chief Complaints: * ???1. Patient presents today for gerd,hiatal hernia. * Medical History:? Objective: * Vitals:? Assessment: Plan: * Treatment: * * The named appointment provid er may or may not be the originator of this progress note, and it is not deemed complete until electronically signed by the appointment provider. Sign off status: Pending * Provider:?Chai Reyna MD Date:? 023 Generated for Printi ng/Faephraimg/eTransmitting on:?05/09/2024 03:28 PM EDT
--- OUTSIDE RECORDS SUMMARY | 2024-05-09 15:28 | XMS_ITS | Encounter Summary ---
Author Organization [employer] Address [address] [facility] 7t [place] [address] Care Team Providers Care Post Acute Care Nurse Practitioner Name Role Phone Benji Hurtado MD Primary Care Provide r Reason for Visit * Reason Onset Date Comments Prior Authorization 05/09/2023 Encounter Details Date Type Department Care Team ([facility] st Contact Info) Description 05/09/[address] [facility] [address] [place] [address] Benji Hurtado MD [address] [place] [address] Prior Authorization Social History Tobacco Use Types [...] SIGNATURE. ONCE SIGNED WILL BE FAXED TO [facility] FOR APPROVAL AND SCAN TO MEDIA. * Telephone Encounter - Esther Reis - 05/09/2023 12:35 PM EDT TC from Dustin from [facility] requesting a urgent call back regarding 2 medications . Would like to know if pt should be on both meds . oxyCODONE (Roxicodone) 30 MG immediate release tablet oxyCODONE ER (OxyCONTIN) 60 MG 12 hr tablet documented in this encounter Plan of Treatment Upcoming Encounters Date Type Department Care Team (Late st Contact Info) Description 06/10/2024 1:[address] [facility] [address] [place] [address] Isabelle Dia, MARILUZ 505 [place] [address] 08/01/2024 2:00 PM EDT Office Visit [facility] [address] [place] [address] Benji Hurtado MD [address] [place] [address] documented as of this encounter Visit Diagnoses Not on filedocumented in this encounter Additional Health Concerns Assessment Noted Time PHQ-9 Depression Total Score: 9 03/22/19 23 1:26 PM EST documented as of this encounter Care Teams Post Acute Care Nurse Practitioner Relationship Specialty Start Date End Date Benji Hurtado MD [address] [place] [address] PCP - General Internal Medicine 10/10/13 documented as of this encounter
--- OUTSIDE RECORDS SUMMARY | 2024-05-09 15:28 | XMS_ITS | Encounter Summary ---
Author Organization [employer] Address [address] [facility] 7t [place] [address] Care Team Providers Care Player Services Representative Name Role Phone Benji Hurtado MD Primary Care Provide r Reason for Visit * Reason Onset Date Comments Med Refill 05/06/2024 Encounter Details Date Type Department Care Team (Late st Contact Info) Description 05/06/2024 Refill [facility] [address] [place] [address] Benji Hurtado MD [address] [place] [address] Chronic pain syndrome; Primary osteoarthritis of hip, [...] Info) Description 06/10/2024 1:30 PM EDT Telemedicine [facility] [address] [place] [address] Isabelle Dia, RN [address] [place] [address] 08/01/2024 2:00 PM EDT Office Visit [facility] [address] [place] [address] Benji Hurtado MD [address] [place] [address] documented as of this encounter Visit Diagnoses Diagnosis Chronic pain syndrome Primary osteoarthritis of hip, unspecified laterality documented in this encounter Additional Health Concerns Assessment Noted Time PHQ-9 Depression Total Score: 7 06/01/19 24 1:38 PM EDT documented as of this encounter Care Teams Player Services Representative Relationship Specialty Start Date End Date Benji Hurtado MD [address] [place] [address] PCP - General Internal Medicine 10/10/13 documented as of this encounter
--- OUTSIDE RECORDS SUMMARY | 2024-05-09 15:28 | XMS_ITS | Encounter Summary ---
Author Organization [employer] Address [address] [facility] [address] [facility] [address] [place] [address] Care Team Providers Care Loop Puller Name Role Phone Benji Hurtado MD Primary Care Provide r Reason for Visit * Reason Comments Med Refill Encounter Details Date Type Department Care Team ([facility] st Contact Info) Description 02/02/2023 Refill [facility] [address] [place] [address] Benji Hurtado MD [address] [place] [address] Primary osteoarthritis of hip, unspecified laterality Social [...] Info) Description 06/10/2024 1:30 PM EDT Telemedicine [facility] [address] [place] [address] Isabelle Dia, RN [address] [place] [address] 08/01/2024 2:00 PM EDT Office Visit [facility] MEDICINE [address] [place] [address] Benji Hurtado MD [address] [place] [address] documented as of this encounter Visit Diagnoses Diagnosis Primary osteoarthritis of hip, unspecified laterality documented in this encounter Additional Health Concerns Assessment Noted Time PHQ-9 Depression Total Score: 9 03/22/19 23 1:26 PM EST documented as of this encounter Care Teams Loop Puller Relationship Specialty Start Date End Date Benji Hurtado MD [address] [place] [address] PCP - General Internal Medicine 10/10/13 documented as of this encounter
--- OUTSIDE RECORDS SUMMARY | 2024-05-09 15:28 | XMS_ITS | Encounter Summary ---
Author Organization [employer] Address [address] [facility] 7 [place] [address] Care Team Providers Care Shellfish Shucker Name Role Phone Benji Hurtado MD Primary Care Provide r Reason for Visit * Reason Onset Date Comments Med Refill 02/18/2022 Encounter Details Date Type Department Care Team (Late st Contact Info) Description 02/18/[address] [facility] MEDICINE [address] [place] [address] Benji Hurtado MD [address] [place] [address] Social History Tobacco Use Types Packs/Day Years Used Date Smoking Tobacco: Never Assessed Sex and Gender Information Value Date Recorded Sex Assigned at Male 12/27/2021 10:14 AM EDT Legal Sex Male 10:14 AM EDT Gender Identity Male 12/27/2021 10:14 AM EDT Sexual Orientation Straight 12/27/2021 10 :14 AM EDT documented as of this encounter Miscellaneous Notes * Telephone Encounter - Esther Reis - 02/18/2022 10:36 AM EST Tc from pt requesting med refill on medication oxycontin 60 mg . documented in this encounter Plan of Treatment Upcoming Encounters Date Type Department Care Team (Late st Contact Info) Description 06/10/2024 1:30 PM EDT Telemedicine [facility]S [address] [place] [address] Isabelle Dia, MARILUZ [address] [place] [address] 08/01/2024 2:00 PM EDT Office Visit [facility] MEDICINE [address] [place] [address] Benji Hurtado MD [address] [place] [address] documented as of this encounter Visit Diagnoses Not on filedocumented in this encounter Care Teams Shellfish Shucker Relationship Specialty Start Date End Date Benji Hurtado MD [address] [place] [address] PCP - General Internal Medicine 10/10/13 documented as of this encounter
--- OUTSIDE RECORDS SUMMARY | 2024-05-09 15:28 | XMS_ITS | Encounter Summary ---
Author Organization [employer] Address [address] [facility] 7t [place] [address] Care Team Providers Care Airport Shuttle Driver Name Role Phone Benji Hurtado MD Primary Care Provide r Reason for Visit * Reason Onset Date Comments Results 05/01/2024 Encounter Details Date Type Department Care Team ([facility] st Contact Info) Description 05/01/2024 Telephone [facility] MEDICINE [address] [place] [address] Sparkle Noble MD [address] [place] [address] Results Social History Tobacco Use Types Packs/Day Years [...] encounter Miscellaneous Notes * Telephone Encounter - Luiza Duffy RN - 05/09/2024 12:54 PM EDT Per [employer], pt just went to the lab ~30 min ago. Results not yet available. Will retask to check again tomorrow. * Telephone Encounter - Radha Strong RN - 05/08/2024 10:33 AM EDT TC placed to pt to inform and remind that repeat blood work needs to be drawn today to check on thept potassium levels. Pt advised that the order is in the system and can be done at the lab here at [facility]. Pt states that he will present to have this done today. This message will be forwarded to 05/09 to check on status. * Addendum Note - Sparkle Noble MD - 05/06/2024 12:55 PM EDTAddended by: SPARKLE NOBLE on: 05/06/2024 12:55 PM Modules accepted: Orders * Addendum Note - Saeid Walker RN - 05/01/2024 2:47 PM ESTAddended by: SAEID WALKER on: 05/01/2024 02:47 PM Modules accepted: Orders * Addendum Note - Saeid Walker RN - 05/01/2024 2:41 PM ESTAddended by: SAEID WALKER on: 05/01/2024 02:41 PM Modules accepted: Orders * Telephone Encounter - Saeid Walker RN - 05/01/2024 2:35 PM EST Telephone call to pt, advised that potassium level came back slightly elevated and that covering doctor for PCP sent 1 time dose of kayexelate to lower potassium level which is ready for flower picker at [facility] pharmacy. Advised to avoid foods rich in potassium, pt reports eating daily banana: reviewed to avoid bananas, cantaloupe, tomatoes, potatoes, oranges, avocado, beans, broccoli. Advised pt to get labs drawn again next Monday05/08/24 to recheck level. Pt verbalized understanding, stated he willgo soon to flower picker med. Will task to check that labs drawn. * Telephone Encounter - Sparkle Noble MD - 05/01/2024 12:40 PM EST Pleae let pt know potassium is slightly elevated. I will prescribe a medicaion. to bring potassium down. Advise avoidance of foods high in potassium and recheck potassium in [address] order for potassium under Dr. Montiel's name. Thank you. documented in this encounter Plan of Treatment Upcoming Encounters Date Type Department Care Team (Late st Contact Info) Description 06/10/2024 1:30 PM EDT Telemedicine [facility] MED & PEDS [address] [place] [address] Isabelle Dia RN [address] [place] [address] 08/01/2024 2:00 PM EDT Office Visit [facility] MEDICINE [address] [place] [address] Benji Hurtado MD [address] [place] [address] documented as of this encounter Procedures Procedure Name Priority Date/Time Associated Diagnosis Comments COMPREHENSIVE METABOLIC PANEL Routine 05/09/2024 12:07 PM EDT Hyperkalemia documented in this encounter Results * (ABNORMAL) Comprehensive Metabolic Panel (05/09/2024 12:07 PM EDT) Sodium 139 135 - 145 mmol/L [facility] Potassium 4.7 3.3 - 5.1 mmol/L [facility] Chloride 107 96 - 108 mmol/L [facility] Carbon Dioxide 23 22 - 29 mmol/L [facility] Anion Gap 14 12 - 20 [facility] Urea Nitrogen (BUN) 23(H) 9 - 16 mg/dL [facility] Creatinine, Serum 1.01 0.5 - 1.4 mg/dL [facility] Estimated Glomerular Filt Rate >60 [facility] Comment:Chronic Kidney Disea se: Estimated GFR < 60 mL/min/1.55t3Skcair Kidney Disease: Estimated GFR < 15 mL/min/1.73m2 Glucose 127(H) 60 - 115 mg/dL [facility] Calcium 9.4 8.4 - 10.2 mg/dL [facility] Bilirubin, Total 0.7 0.0 - 1.0 mg/dL [facility] Aspartate Amino Transferase 22 5 - 37 U/L [facility] Alanine Aminotransferase 15 0 - 40 U/L [facility] Total Protein 8.2(H) 6.5 - 8.0 g/dL [facility] Albumin Level 4.2 3.5 - 5.0 g/dL [facility] Alkaline Phosphatase 92 39 - 117 U/L [facility] Blood Venous blood specimen / Unknown 05/09/2024 12:07 PM EDT 05/09/2024 1:25 PM EDT Sparkle Noble MD LAB BLOOD ORDERABLES Final Result [facility] [address] [place] [address] [phone] documented in this encounter Visit Diagnoses Diagnosis Hyperkalemia- Primary Hyperpotassemia documented in this encounter Additional Health Concerns Assessment Noted Time PHQ-9 Depression Total Score: 7 06/01/19 24 1:38 PM EDT documented as of this encounter Care Teams Airport Shuttle Driver Relationship Specialty Start Date End Date Benji Hurtado MD [address] [place] [id number] PCP - General Internal Medicine 10/10/13 documented as of this encounter
--- OUTSIDE RECORDS SUMMARY | 2024-05-09 15:29 | XMS_ITS | Encounter Summary ---
Author Organization [employer] Address [address] 7 [place] [address] Care Team Providers Care Lode Miner Blasting Name Role Phone Benji Hurtado MD Primary Care Provide r Reason for Visit * Reason Onset Date Comments Med Refill 09/30/2022 Encounter Details Date Type Department Care Team (Late st Contact Info) Description 09/30/[address] [facility] MEDICINE [address] [place] [address] Benji Hurtado MD [address] [place] [address] Med Refill Social History Tobacco Use Types [...] Info) Description 06/10/2024 1:30 PM EDT Telemedicine [facility] MED & PEDS [address] [place] [address] Isabelle Dia, RN [address] [place], [place] 08/01/2024 2:00 PM EDT Office Visit [facility] MEDICINE [address] [place] [address] Benji Hurtado MD [address] [place] [address] documented as of this encounter Visit Diagnoses Not on filedocumented in this encounter Additional Health Concerns Assessment Noted Time PHQ-9 Depression Total Score: 9 03/22/19 23 1:26 PM EST documented as of this encounter Care Teams Lode Miner Blasting Relationship Specialty Start Date End Date Benji Hurtado MD [address] [place] [address] PCP - General Internal Medicine 10/10/13 documented as of this encounter
--- OUTSIDE RECORDS SUMMARY | 2024-05-09 15:29 | XMS_ITS | Encounter Summary ---
Author Organization [employer] Address [address] [facility] 7t [place] [address] Care Team Providers Care Certified Nurse Midwife Name Role Phone Benji Hurtado MD Primary Care Provide r Reason for Visit * Reason Onset Date Comments Med Refill 04/08/2024 Encounter Details Date Type Department Care Team (Late st Contact Info) Description 04/08/[address] [facility] MED & PEDS [address] [place] [address] Benji Hurtado MD [address] [place] [address] Chronic pain syndrome; Primary osteoarthritis of hip, [...] Info) Description 06/10/2024 1:30 PM EDT Telemedicine [facility] MED & PEDS [address] [place] [address] Isabelle Dia RN [address] [place] [address] 08/01/2024 2:00 PM EDT Office Visit [facility] MEDICINE [address] [place] [address] Benji Hurtado MD [address] [place] [address] documented as of this encounter Visit Diagnoses Diagnosis Chronic pain syndrome Primary osteoarthritis of hip, unspecified laterality documented in this encounter Additional Health Concerns Assessment Noted Time PHQ-9 Depression Total Score: 7 06/01/19 24 1:38 PM EDT documented as of this encounter Care Teams Certified Nurse Midwife Relationship Specialty Start Date End Date Benji Hurtado MD [address] [place] [address] PCP - General Internal Medicine 10/10/13 documented as of this encounter
--- OUTSIDE RECORDS SUMMARY | 2024-05-09 15:29 | XMS_ITS | Encounter Summary ---
Author Organization [employer] Address [address] [facility] 7 [place] [address] Care Team Providers Care Bakery Chef Name Role Phone Benji Hurtado MD Primary Care Provide r Reason for Visit * Reason Comments Pre-visit Planning Pre-visit planning - LVM Encounter Details Date Type Department Care Team ([facility] st Contact Info) Description 04/23/2024 Patient Outreach [facility] MEDICINE [address] [place] [address] Benji Hurtado MD [address] [place] [address] Pre-visit Planning (Pre-visit planning - LVM ) [...] 06/10/2024 1:30 PM EDT Telemedicine [facility] MED & PEDS [address] [place] [address] Isabelle Dia, RN [address] [place] [address] 08/01/2024 2:00 PM EDT Office Visit [facility] MEDICINE [address] [place] [address] Benji Hurtado MD [address] [place] [address] documented as of this encounter Visit Diagnoses Not on filedocumented in this encounter Additional Health Concerns Assessment Noted Time PHQ-9 Depression Total Score: 7 06/01/19 24 1:38 PM EDT documented as of this encounter Care Teams Bakery Chef Relationship Specialty Start Date End Date Benji Hurtado MD [address] [place] [address] PCP - General Internal Medicine 10/10/13 documented as of this encounter
--- OUTSIDE RECORDS SUMMARY | 2024-05-09 15:29 | XMS_ITS | Encounter Summary ---
Author Organization [employer] Address [address] [facility] 7t [place] [address] Care Team Providers Care Supervisor Gas Meter Repair Name Role Phone Benji Hurtado MD Primary Care Provide r Reason for Visit * Reason Onset Date Comments Appointment Request 01/17/2023 Encounter Details Date Type Department Care Team ([facility] st Contact Info) Description 01/17/2023 Telephone [facility] MEDICINE [address] [place] [address] Benji Hurtado MD [address] [place] [address] Appointment Request Social History Tobacco Use Types [...] due to transportation. Please contact pt at [phone] documented in this encounter Plan of Treatment Upcoming Encounters Date Type Department Care Team (Late st Contact Info) Description 06/10/2024 1:30 PM EDT Telemedicine [facility] MED & PEDS [address] [place] [address] Isabelle Dia, MARILUZ [address] [place] [address] 08/01/2024 2:00 PM EDT Office Visit [facility] MEDICINE [address] [place] [address] Benji Hurtado MD [address] [place] [address] documented as of this encounter Visit Diagnoses Not on filedocumented in this encounter Additional Health Concerns Assessment Noted Time PHQ-9 Depression Total Score: 9 03/22/19 23 1:26 PM EST documented as of this encounter Care Teams Supervisor Gas Meter Repair Relationship Specialty Start Date End Date Benji Hurtado MD [address] [place] [id number] PCP - General Internal Medicine 10/10/13 documented as of this encounter
--- OUTSIDE RECORDS SUMMARY | 2024-05-09 15:29 | XMS_ITS | Encounter Summary ---
Author Organization [employer] Address [address] [facility] [address] 7t [place] [address] Care Team Providers Care Diagnostic Cardiac Sonographer Name Role Phone Benji Hurtado MD Primary Care Provide r Reason for Visit * Reason Comments Med Refill Encounter Details Date Type Department Care Team ([facility] st Contact Info) Description 01/31/2023 Refill [facility] MED & PEDS [address] [place] [address] Benji Hurtado MD [address] [place] [address] Primary osteoarthritis of hip, unspecified laterality Social [...] Description 06/10/2024 1:30 PM EDT Telemedicine [facility] MED & PEDS [address] [place] [address] Isabelle Dia, RN [address] [place] [address] 08/01/2024 2:00 PM EDT Office Visit [facility] MEDICINE [address] [place] [address] Benji Hurtado MD [address] [place] [address] documented as of this encounter Visit Diagnoses Diagnosis Primary osteoarthritis of hip, unspecified laterality documented in this encounter Additional Health Concerns Assessment Noted Time PHQ-9 Depression Total Score: 9 03/22/19 23 1:26 PM EST documented as of this encounter Care Teams Diagnostic Cardiac Sonographer Relationship Specialty Start Date End Date Benji Hurtado MD [address] [place] [id number] PCP - General Internal Medicine 10/10/13 documented as of this encounter
--- OUTSIDE RECORDS SUMMARY | 2024-05-09 15:29 | XMS_ITS | Encounter Summary ---
Author Organization [employer] Address [address] [facility] [address] [place] [address] Care Team Providers Care [employer]erox Machine Mechanic Name Role Phone Benji Hurtado MD Primary Care Provide r Reason for Visit * Reason Comments Med Refill Encounter Details Date Type Department Care Team ([facility] st Contact Info) Description 03/01/2023 Refill [facility] CH[facility] MED & PEDS [address] [place] [address] Benji Hurtado MD [address] [place] [address] Primary osteoarthritis of hip, unspecified laterality Social [...] 06/10/2024 1:30 PM EDT Telemedicine [facility] CH[facility] MED & PEDS [address] [place] [address] Isabelle Dia, RN [address] [place] [address] 08/01/2024 2:00 PM EDT Office Visit [facility] MEDICINE [address] [place] [address] Benji Hurtado MD [address] [place] [address] documented as of this encounter Visit Diagnoses Diagnosis Primary osteoarthritis of hip, unspecified laterality documented in this encounter Additional Health Concerns Assessment Noted Time PHQ-9 Depression Total Score: 9 03/22/19 23 1:26 PM EST documented as of this encounter Care Teams [employer]ox Machine Mechanic Relationship Specialty Start Date End Date Benji Hurtado MD [address] [place] [address] PCP - General Internal Medicine 10/10/13 documented as of this encounter
--- OUTSIDE RECORDS SUMMARY | 2024-05-09 15:29 | XMS_ITS ---
Author Organization [facility] Address [address] [place] [phone] Care Team Providers Care Full Stack Software Engineer Name Role Phone Tiana Corbin MD, [facility] Primary Care Provide r Chai Aguillon [phone] REASON FOR VISIT cancelled appt Encounters Encounter Location Date Provider Diagnosis [facility] [address] [place] [address] 01/11/2023 Chai Reyna Plan Of Treatment No Information Progress Notes * DANIEL KEARNSRODOB:1980 (42 yo M)Acc No.[id number]:01/11/2023 Patient:?VALORIE KEARNS :1980???Age:42 Y???Sex:Male Address:[address] [place] [address], [address] * true * Date:? Generated for Jamesi abdoul/Michael/eTransmitting on:?05/09/2024 03:29 PM EDT
--- OUTSIDE RECORDS SUMMARY | 2024-05-09 15:29 | XMS_ITS | Clinical Summary ---
Author Organization [employer] Address [address] [facility] 7 [place] [address] Care Team Providers Care Fire Alarm Repairer Name Role Phone Benji Hurtado MD Primary [...] every day 018 Active Continuous Blood Gluc Horticulture/Floriculture Teacher (FreeStyle Garett 2 [place]) deviceIndication s:Type 2 diabetes mellitus without complication, without long-term current use of insulin ([facility]) 1 applicator with breakfast, with lunch, [...] directed to check blood sugar 100 each 11 024 2024 Active albuterol (Ventolin HFA) 108 [...] without long-term current use of insulin (CMS/HCC) USE DIRECTED TO TEST BLOOD SUGAR BEFORE [...] A WEEK DIRECTED 2 mL 6 Active pioglitazone (Actos) 15 MG tabletIndication s:Type 2 diabetes mellitus without complication, without long-term current use of insulin (CMS/HCC) Take 1 tablet (15 mg) by mouth Once per day. 30 tablet 11 025 2025 Active oxyCODONE (Roxicodone) 30 MG immediate release tabletIndication s:Chronic pain syndrome Take 1 tablet (30 mg) by mouth every 12 (twelve) hours if needed for severe pain for up to 28 days. Do not start before May 13, 2024. 56 tablet 025 2024 Active oxyCODONE ER (OxyCONTIN) 60 MG 12 hr tabletIndication s:Primary osteoarthritis of hip, unspecified laterality Take 1 tablet (60 mg) by mouth every 12 (twelve) hours for 28 days. Do not crush, chew, or split. Do not start before May 08, 2024. 56 tablet 025 2024 Active pioglitazone (Actos) 30 MG tablet TAKE [...] April 15, 2024. 56 tablet 025 2024 Discontinued(R eorder (will not trigger notification to Pharmacy)) oxyCODONE ER (OxyCONTIN) 60 MG 12 hr tabletIndication s:Primary osteoarthritis of hip, unspecified laterality Take 1 tablet (60 mg) by mouth every 12 (twelve) hours for 28 days. Do not crush, chew, or split. Do not start before April 11, 2024. 56 tablet 025 2024 Discontinued(R eorder (will not trigger notification to Pharmacy)) sodium polystyrene sulfonate (Kayexalate) powderIndication s:Hyperkalemia Take by mouth 1 (one) time for 1 dose. 15 g 025 2024 Active Problems Problem Noted Date Diagnosed Date [...] he is currently seeing a therapist at [facility] ([place]) and his Psychiatrist is Dr [...] Plan (04/30/2024 3:23 PM EST): Referred to Therapist Radiation in the past Patient has been counseled [...] Plan (02/28/2023 1:11 PM EST): Referred to Therapist Radiation in the past Patient has been counseled and educated about diet and exercise. Personal goal of weight loss discussedPatient has comorbidity of: DM Assessment & Plan (03/22/2022 1:00 PM EST): Referred to Therapist Radiation in the past Nonalcoholic steatohepatitis 11/12/2012 Type [...] CPAP 6-14cm H2O and BiPAP 12/01 to 09/10. 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 patient has [...] Encounters Date Type Department Care Team Description 05/06/2024 Refill [facility] [address] [place] [address] Benji Hurtado MD Chronic pain syndrome; Primary osteoarthritis of hip, unspecified laterality 05/01/[address] [address] Sparkle Srivastava MD Results 04/30/2024 3:00 PM EST Office Visit [address] [address] Benji Hurtado MD Obstructive sleep apnea syndrome (Primary Dx); Type 2 diabetes mellitus without complication, without long-term current use of insulin ([facility]); Chronic pain syndrome; Moderate persistent asthma without complication; Essential hypertension; Morbid obesity (CMS/HCC); Mixed hyperlipidemia; Dietary counseling; Exercise counseling 04/23/2024 Patient Outreach [address] [address] Benji Hurtado MD Pre-visit Planning (Pre-visit planning - LVM ) 04/12/[address] [address] Benji Hurtado MD Chart Prep 04/08/2024 Refill [facility] [address] [place] [address] Benji Hurtado MD Chronic pain syndrome; Primary osteoarthritis of hip, unspecified laterality 03/29/2024 9:00 AM EST Clinical Support [address] [address] Isabelle Dia RN Chronic pain syndrome 03/29/2024 Telephone [facility] [address] [place] [address] Isabelle Dia RN 03/29/2024 Travel 03/14/2024 Telephone [facility] [address] [place] [address] Isabelle Dia RNtechnical inspector 03/14/2024 Telephone [facility] [address] [place] [phone] Benji Hurtado MD Medication Question 03/11/2024 Refill [facility] [address] [place] [address] Benji Hurtado MD Chronic pain syndrome; Primary osteoarthritis of hip, unspecified laterality 02/15/2024 Telephone [facility] [address] [place] [phone] Benji uHrtado MD Prior Authorization 02/12/2024 Refill [facility] [address] [place] [address] Benji Hurtado MD Chronic pain syndrome; Primary [...] Info) Description 06/10/2024 1:30 PM EDT Telemedicine [facility] PEDS [address] [place] [address] Isabelle Dia, MARILUZ [address] [place] [address] 08/01/2024 2:00 PM EDT Office Visit [facility] [address] [place] [address] Benji Hurtado MD [address] [place] [address] Health Maintenance Due Date Last Done Comments [...] 11/13/2022 11/13/2012, 08/03/2006, 03/30/1990, Additional history exists Depression Screening 05/31/2024 06/01/2023, 06/01/19 Diabetes: Hemoglobin A1C 10/31/2024 025, 01/04/2024, 10/03/2023, Additional history exists Tobacco Screening 01/03/2025 01/04/2024 Alcohol/Substance Use Screening 04/30/2025 04/30/2024 Diabetes: Urine Protein Screening 04/30/2025 04/30/2024, 04/08/2022, 12/09/2020, Additional history exists Lipid Panel 04/30/2025 04/30/2024, 0806/2023, 04/08/2022, Additional history exists SDOH Screening 04/30/2025 04/30/2024 Zoster Vaccines (1 [...] PANEL Routine 05/09/2024 12:07 PM EDT Hyperkalemia LIPID PANEL, STANDARD Routine 04/30/2024 3:52 PM EST Mixed hyperlipidemia ALBUMIN, RANDOM URINE W/CREATININE Routine 04/30/2024 3:52 PM EST Type 2 diabetes mellitus without complication, without long-term current use of insulin ([facility]) COMPREHENSIVE METABOLIC PANEL Routine 04/30/2024 3:52 PM EST Type 2 diabetes mellitus without complication, without long-term current use of insulin ([facility]) POCT GLYCATED HEMOGLOBIN, TOTAL Routine 04/30/2024 3:34 PM EST Type 2 diabetes mellitus without complication, without long-term current use of insulin ([facility]) POCT JAKE-14 URINE DRUG SCREEN Routine 03/29/2024 9:37 AM EST Chronic pain syndrome from Last 3 Months Results * (ABNORMAL) Comprehensive Metabolic Panel (05/09/2024 12:07 PM EDT) Only the most recent of2 resultswithin the time period is included. Sodium 139 135 - 145 mmol/L [facility] Potassium 4.7 3.3 - 5.1 mmol/L [facility] Chloride 107 96 - 108 mmol/L [facility] Carbon Dioxide 23 22 - 29 mmol/L [facility] Anion Gap 14 12 - 20 [facility] Urea Nitrogen (BUN) 23(H) 9 - 16 mg/dL [facility] Creatinine, Serum 1.01 0.5 - 1.4 mg/dL [facility] Estimated Glomerular Filt Rate >60 [facility] Comment:Chronic Kidney Disea se: Estimated GFR < 60 mL/min/[id number] Kidney Disease: Estimated GFR < 15 mL/min/1.73m2 Glucose 127(H) 60 - 115 mg/dL [facility] Calcium 9.4 8.4 - 10.2 mg/dL [facility] Bilirubin, Total 0.7 0.0 - 1.0 mg/dL [facility] Aspartate Amino Transferase 22 5 - 37 U/L [facility] Alanine Aminotransferase 15 0 - 40 U/L [facility] Total Protein 8.2(H) 6.5 - 8.0 g/dL [facility] Albumin Level 4.2 3.5 - 5.0 g/dL [facility] Alkaline Phosphatase 92 39 - 117 U/L [facility] Blood Venous blood specimen / Unknown 05/09/2024 12:07 PM EDT 05/09/2024 1:25 PM EDT us Sparkle Srivastava MD LAB BLOOD ORDERABLES Final Result Performing Organization Address [facility] Co de Phone Number [facility] [address] [place] [phone] * (ABNORMAL) Albumin, Random Urine W/Creatinine (04/30/2024 3:52 PM EST) Creatinine, Urine 144.57 mg/dL [facility] Microalbumin Urine 78.0 mg/L [facility] Microalbum Creatinine Ratio Ur 53.9(H) <30 ug/mg cr [facility] Comment:Albumin/Creatinine R atio Reference Ranges: Normal: < 30 ug/mg creatinine Microalbuminuria: 30 - 300 ug/mg creatinineClinical Albuminuria: > 300 ug/mg creatinine Urine (Urine, Random) 04/30/2024 3:52 PM EST 04/30/2024 6:26 PM EST Benji Corbin MD LAB URINE ORDERABLES Final Result Performing Organization Address [facility] Co de Phone Number [facility] [address] [place] [phone] * (ABNORMAL) Lipid Panel, Standard (04/30/2024 3:52 PM EST) Triglycerides 141 <150 mg/dL [facility] Comment:Desirable Triglyceri de: less than 150 mg/dLBorderline High Triglyceride 150-199 mg/dLHigh Triglyceride: 200-499 mg/dLVery High Triglyceride: greater than or equal to 5OO mg/dL Cholesterol 198 <200 mg/dL [facility] Comment:Desirable Cholestero l: less than 200 mg/dLBorderline High Cholesterol: 200-239 mg/dLHigh Cholesterol: greater than 239 mg/dL LDL Cholesterol Calculated 124(H) <100 mg/dL [facility] Comment:Desirable LDL: less than 100 mg/dLNear Optimal/Above Optimal LDL: 110- 129 mg/dLBorderline High LDL: 130-159 mg/dLHigh LDL: 160-189 mg/dLVery High LDL: greater than or equal to 190 mg/dL HDL Cholesterol 46 >40 mg/dL [facility] Comment:Desirable HDL: great er than 40 mg/dL Note: This HDL assay may give artificially low results in patients with liver disease. Blood Venous blood specimen / Unknown 04/30/2024 3:52 PM EST 04/30/2024 6:15 PM EST Benji Corbin MD LAB BLOOD ORDERABLES Final Result Performing Organization Address City/State/[facility] Co de Phone Number [facility] [address] [place] [phone] * (ABNORMAL) POCT HGB A1C (04/30/2024 3:34 PM EST) Pathologist [facility] Hemoglobin A1C 6.5(A) 4.0 - 6.0 % [...] Final Result from Last 3 Months Insurance [facility] C3 Care Teams Fire Alarm Repairer Relationship Specialty Start Date End Date Benji Hurtado MD [address] [phone] PCP - General Internal Medicine 10/10/13
--- OUTSIDE RECORDS SUMMARY | 2024-05-09 15:29 | XMS_ITS | Encounter Summary ---
Author Organization [employer] Address [address] [facility] 7t [place] [address] Care Team Providers Care Paper Coating Supervisor Name Role Phone Benji Hurtado MD Primary Care Provide r Reason for Visit * Reason Onset Date Comments Chart Prep 04/12/2024 Encounter Details Date Type Department Care Team ([facility] st Contact Info) Description 04/12/2024 Telephone [facility] MEDICINE [address] [place] [address] Benji Hurtado MD [address] [place] [address] Chart Prep Social History Tobacco Use Types [...] EDT Telemedicine [facility] [address] [place] [address] Isabelle Dia RN [address] [place] [address] 08/01/2024 2:00 PM EDT Office Visit [facility] MED[facility] [address] [place] [address] Benji Hurtado MD [address] [place] [address] documented as of this encounter Visit Diagnoses Not on filedocumented in this encounter Additional Health Concerns Assessment Noted Time PHQ-9 Depression Total Score: 7 06/01/19 24 1:38 PM EDT documented as of this encounter Care Teams Paper Coating Supervisor Relationship Specialty Start Date End Date Benji Hurtado MD [address] [place] [address] PCP - General Internal Medicine 10/10/13 documented as of this encounter
--- OUTSIDE RECORDS SUMMARY | 2024-05-09 15:29 | XMS_ITS | Encounter Summary ---
Author Organization [employer] Address [address] [facility] 7 [place] [address] Care Team Providers Care Transplant Case Manager Name Role Phone Benji Hurtado MD Primary Care Provide r Reason for Visit * Reason Onset Date Comments Med Refill 12/30/2022 Encounter Details Date Type Department Care Team ([facility] st Contact Info) Description 12/30/2022 Telephone [facility] MEDICINE [address] [place] [address] Benji Hurtado MD [address] [place] [address] Med Refill Social History Tobacco Use Types [...] on message above. Please contact pt at [phone] * Telephone Encounter - Jacoby Uribe - 12/30/2022 4:32 PM EDT TC from pt states [facility] pharmacy gave 3 day supply of oxyCODONE [...] Description 06/10/2024 1:30 PM EDT Telemedicine [facility] MED [facility] PEDS [address] [place] [address] Isabelle Dia, MARILUZ [address] [place] [address] 08/01/2024 2:00 PM EDT Office Visit [facility] MEDICINE [address] [facility] [place] [address] Benji Hurtado MD [address] [place] [address] documented as of this encounter Visit Diagnoses Not on filedocumented in this encounter Additional Health Concerns Assessment Noted Time PHQ-9 Depression Total Score: 9 03/22/19 23 1:26 PM EST documented as of this encounter Care Teams Transplant Case Manager Relationship Specialty Start Date End Date Benji Hurtado MD [facility] [place] [address] PCP - General Internal Medicine 10/10/13 documented as of this encounter
--- OUTSIDE RECORDS SUMMARY | 2024-05-09 15:29 | XMS_ITS | Encounter Summary ---
Author Organization [employer] Address [address] [facility] 7 [place] [address] Care Team Providers Care Product Support Consultant Name Role Phone Benji Hurtado MD Primary Care Provide r Reason for Referral * Consultation (Routine) - Authorized Specialty Diagnoses / Procedures Referred By Contac t Referred To Contact Podiatry Diagnoses Type 2 diabetes mellitus without complication, without long-term current use of insulin ([facility]) Benji Hurtado MD [address] [place] [address] Phone: tel: fax: Adolph Whitney DPM [address] [facility] [address] [place] [phone] Phone: tel: fax: Referral ID Status Reason Start Date Expiration Date Visits Requested Visits Authorized [id number] Authorized Specialty Services Required 05/01/2024 05/01/2025 6 6 Reason for Visit * Reason Comments Diabetes Depression Pt has been depresse d since January 2024 Encounter Details Date Type Department Care Team (Late st Contact Info) Description 04/30/2024 3:00 PM EST Office Visit [facility] MEDICINE [address] [place], [place] [phone] Benji Hurtado MD [address] [place], [place] [phone] Obstructive sleep apnea syndrome (Primary Dx); Type [...] your housing situation today? I have joel cory 06/01/[address] you li [...] days and bad days He is on emt intermediate COT patient has OA hips, chronic low [...] Metabolic Panel Morbid obesity (CMS/HCC) Referred to Programming Director in the past Patient has been counseled [...] Associated Problem(s): Morbid obesity (CMS/HCC) Referred to Programming Director in the past Patient has been counseled [...] days and bad days He is on mcfp COT patient has OA hips, chronic low [...] EST Associated Problem(s): Type 2 diabetes mellitus (CMS/HCC) Patient is [...] Info) Description 06/10/2024 1:30 PM EDT Telemedicine [facility] [address] [place] [address] Isabelle Dia, MARILUZ [address] [place] [address] 08/01/2024 2:00 PM EDT Office Visit [facility] MED[facility]INE [address] [place] [address] Benji Hurtado MD [address] [place] [address] Scheduled Orders Name Type Priority Associated Diagnoses Orde r Schedule Comprehensive Metabolic Panel Lab Routine Essential hypertension Ordered: 04/30/2024 Scheduled Referrals Name Type Priority Associated Diagnoses Orde r Schedule Referral to Podiatry Outpatient Referral Routine Type 2 diabetes mellitus without complication, without long-term current use of insulin ([facility]/HCC) Expected: 04/30/2024 (Approximate), Expires: 04/30/2025 documented as of this encounter Procedures Procedure Name Priority Date/Time Associated Diagnosis Comments LIPID PANEL, STANDARD Routine 04/30/2024 3:52 PM EST Mixed hyperlipidemia POCT GLYCATED HEMOGLOBIN, TOTAL Routine 04/30/2024 3:34 PM EST Type 2 diabetes mellitus without complication, without long-term current use of insulin ([facility]/HCC) documented in this encounter Results * (ABNORMAL) Lipid Panel, Standard (04/30/2024 3:52 PM EST) Triglycerides 141 <150 mg/dL [facility] Comment:Desirable Triglyceri de: less than 150 mg/dLBorderline High Triglyceride 150-199 mg/dLHigh Triglyceride: 200-499 mg/dLVery High Triglyceride: greater than or equal to 5OO mg/dL Cholesterol 198 <200 mg/dL [facility] Comment:Desirable Cholestero l: less than 200 mg/dLBorderline High Cholesterol: 200-239 mg/dLHigh Cholesterol: greater than 239 mg/dL LDL Cholesterol Calculated 124(H) <100 mg/dL [facility] Comment:Desirable LDL: less than 100 mg/dLNear Optimal/Above Optimal LDL: 110- 129 mg/dLBorderline High LDL: 130-159 mg/dLHigh LDL: 160-189 mg/dLVery High LDL: greater than or equal to 190 mg/dL HDL Cholesterol 46 >40 mg/dL [facility] Comment:Desirable HDL: great er than 40 mg/dL Note: This HDL assay may give artificially low results in patients with liver disease. Blood Venous blood specimen / Unknown 04/30/2024 3:52 PM EST 04/30/2024 6:15 PM EST Benji Corbin MD LAB BLOOD ORDERABLES Final Result Performing Organization Address City/State/[facility] Co de Phone Number [facility] [address] [place] [phone] * (ABNORMAL) POCT HGB A1C (04/30/2024 [...] documented as of this encounter Care Teams Product Support Consultant Relationship Specialty Start Date End Date Benji Hurtado MD [address] [place] [address] PCP - General Internal Medicine 10/10/13 documented as of this encounter
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
== END 2024-05-09 12:07 | disposition home or self-care (01) ==
LOC: HO.HHCL 12:06
PROVIDERS: Visit Provider Family Medicine
DX: E87.5 Hyperkalemia (principal)
CPT/HCPCS: 36415; 80053

== ENCOUNTER 2024-09-06 13:39 | Outpatient (REF) | payer MEDICAID, SELFPAY ==
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
== END 2024-09-06 13:40 | disposition home or self-care (01) ==
LOC: HO.HHCLNP 13:39
PROVIDERS: Visit Provider Internal Medicine
DX: G89.4 Chronic pain syndrome (principal)
CPT/HCPCS: 36415; 80353

== ENCOUNTER 2024-10-31 16:20 | Outpatient (REF) | payer MEDICAID, SELFPAY ==
--- OUTSIDE RECORDS SUMMARY | 2024-10-31 14:00 | XMS_ITS | Encounter Summary ---
Author Organization [employer] Address [address] [place] [address] Care Team Providers Care Guest Room Attendant Name Role Phone Benji Hurtado MD Primary Care Provide r Reason for Visit * Reason Comments Follow-up Encounter Details Date Type Department Care Team (Latest Contact Info) Description 10/31/2024 2:00 PM EDT Office Visit [facility] [address] [place] [address] Benji Hurtado MD [address], [place] [phone] Chronic pain syndrome (Primary Dx); Type 2 diabetes mellitus without complication, without long-term current use of insulin (CMS/HCC); Essential hypertension; Mixed hyperlipidemia Social History Tobacco Use Types Packs/Day Years Used Date Smoking Tobacco: Every Day Cigarettes Passive Smoke Exposure: Current Smokeless Tobacco: Never Depression Answer Date Recorded Patient Health Questionnaire-9 Score 23 08/01/2024 Patient Health Questionnaire-9 Score 23 08/01/2024 Last PHQ-9: Questionnaire Data Not on file 0 08/01/2024 Housing Stability Answer Date Recorded What is [...] Answer Date Recorded Patient Health Questionnaire-2 Score 5 08/01/2024 Internet Access Answer Date Recorded Internet Access [...] Sign Reading Time Taken Comments Blood Pressure 160/100 10/31/2024 2:20 PM EDT Pulse 88 10/31/2024 2:20 PM EDT Temperature 36.3 C (97.4 F) 10/31/2024 2:20 PM EDT Respiratory Rate 20 10/31/2024 2:20 PM EDT Oxygen Saturation 99% 10/31/2024 2:20 PM EDT Inhaled Oxygen Concentration - - Weight 144 kg (317 lb) 10/31/2024 2:20 PM EDT Height 188 cm (6' 2 ) 10/31/2024 2:20 PM EDT Body Mass Index 40.7 10/31/2024 2:20 PM EDT documented in this encounter Progress Notes * Benji Corbin MD - 10/31/2024 2:00 PM EDT SUBJECTIVE Javier Charles is a 43 y.o. male who presents for Follow-up. Diabetes He presents for his follow-up diabetic visit. He has type 2 diabetes mellitus. Pertinent negatives for hypoglycemia include no headaches. Pertinent negatives for diabetes include no chest pain. Hypertension Pertinent negatives include no chest pain, headaches or shortness of breath. Hyperlipidemia This is a chronic problem. Pertinent negatives include no chest pain or shortness of breath. Review of Systems Constitutional: Negative for fever. HENT: Negative for sore throat. Respiratory: Negative for cough and shortness of breath. Cardiovascular: Negative for chest pain. Gastrointestinal: Negative for abdominal pain. Neurological: Negative for headaches. Allergies[1] OBJECTIVE Vitals: 10/31/24 1420 BP: (!) 160/100 BP Location: Left arm Patient Position: Sitting BP Cuff Size: Adult Pulse: 88 Resp: 20 Temp: 97.4 ??F (36.3 ??C) TempSrc: Oral SpO2: 99% Weight: 317 lb (144 kg) Height: 6' 2 (1.88 m) Physical [...] Addressed This Visit Type 2 diabetes mellitus (CMS/[facility]) Patient is here for a follow up DM Controlled He is on a regimen of Trulicity 1.5 once a week (injected by his significant other) and Pioglitazone 15 mg po daily In the past he was on Ozempic. Pt did not tolerate Metformin XR due to stomach upset. He has phobiato needles so he does not want to use insulin Hgb A1c 10/31/2024: 7 from 7.9 from 6.5 Eye exam: Pt was referred to our Eye care Program Microalbumin checked on: 04/30/2024 was: 78 Pt on an MALIK inhibitor (lisinopril ) Foot check not done Plan: Continue current regimen Pt is allergic to Asa 81 mg po daily (severe swelling) Pt has been advised to: adhere to diabetic diet Pt will come back to see me in 3 months check your blood sugars regularly check your feet on a daily basis Relevant Orders POCT Glucose (Completed) POCT Hgb A1c (Completed) Essential hypertension Patient with Hypertension currently controlled on a regimen of: Lisinopril 10 mg po daily Given adequate blood pressure control will continue with current regimen Most recent electrolytes, Bun and Creatinine done on: Lab Results Component Value Date NA 139 05/09/2024 NA 140 04/30/2024 K 4.7 05/09/2024 K 5.2 (H) 04/30/2024 CL 107 05/09/2024 CL 107 04/30/2024 BUN 23 (H) 05/09/2024 BUN 22 (H) 04/30/2024 CREATININE 1.01 05/09/2024 CREATININE 0.88 04/30/2024 were within normal limits. patient advised to adhere to a low sodium diet, encouraged about medication compliance, counseled about weight loss. Mixed hyperlipidemia Patient with elevated lipids. Most recent lipid profile from: Lab Results Component Value Date TRIG 141 04/30/2024 TRIG 197 (H) 10/02/2023 CHOL 198 04/30/2024 CHOL 212 (H) 10/02/2023 LDLCHOLCAL 124 (H) 04/30/2024 LDLCHOLCAL 126 (H) 10/02/2023 HDL 46 04/30/2024 HDL 47 10/02/2023 Pt today tells me he did not tolerate Crestor 5mg po daily causing him stomach aches Previously told me he did not tolerate the Atorvastatin 20 mg po qhs, previously Simvastatin, caused him stomach upset, advised to try to adhere to a low cholesterol diet, counseled and educated about diet and exercise, Patient encouraged to come up with a personal goal for weight loss. 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 Pt tested positive for Cocaine, he denies ever using, he is concerned that the THC he smokes could have been laced I have discussed with him that if his urine tests positive for Cocaine again we will taper him off Narcotics and no more narcotics will be prescribed from our office. He verbalizes understanding. Relevant Orders POCT JAKE-14 Urine Drug Screen (Completed) Drug Monitoring, Panel 1, Screen, Urine Future Appointments Date Time Provider Department Center 11/01/2024 10:00 AM Isabelle Dia RN [facility] 11/28/2024 1:45 PM Rupali Perez OD [facility] 12/30/2024 2:00 PM Isabelle Dia RN [facility] [1] Allergies Allergen Reactions Morphine Headache and Hives Other reaction(s): Hives Acetaminophen Other reaction(s): stomach ache, Unknown Amitriptyline Other reaction(s): shaking Aspirin Swelling and Unknown Bee Pollen Swelling Bee Venom Other reaction(s): Unknown Blue Dyes (Parenteral) Nausea Meperidine Hallucinations Metformin Other reaction(s): GI upset Quetiapine Shellfish Allergy Hives Cyclobenzaprine Rash Latex Rash documented in this encounter Miscellaneous Notes * Assessment & Plan Note - Benji Corbin MD - 10/31/2024 2:47 PM EDT Associated Problem(s): Chronic pain syndrome Patient is here for a follow up Good days and bad days 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 Pt tested positive for Cocaine, he denies ever using, he is concerned that the THC he smokes could have been laced I have discussed with him that if his urine tests positive for Cocaine again we will taper him off Narcotics and no more narcotics will be prescribed from our office. He verbalizes understanding. * Assessment & Plan Note - Benji Corbin MD - 10/31/2024 2:27 PM EDT Associated Problem(s): Mixed hyperlipidemia Patient with elevated lipids. Most recent lipid profile from: Lab Results Component Value Date TRIG 141 04/30/2024 TRIG 197 (H) 10/02/2023 CHOL 198 04/30/2024 CHOL 212 (H) 10/02/2023 LDLCHOLCAL 124 (H) 04/30/2024 LDLCHOLCAL 126 (H) 10/02/2023 HDL 46 04/30/2024 HDL 47 10/02/2023 Pt today tells me he did not tolerate Crestor 5mg po daily causing him stomach aches Previously told me he did not tolerate the Atorvastatin 20 mg po qhs, previously Simvastatin, caused him stomach upset, advised to try to adhere to a low cholesterol diet, counseled and educated about diet and exercise, Patient encouraged to come up with a personal goal for weight loss. Plan: continue to adhere to a low cholesterol diet * Assessment & Plan Note - Benji Corbin MD - 10/31/2024 2:26 PM EDT Associated Problem(s): Essential hypertension Patient with Hypertension currently controlled on a regimen of: Lisinopril 10 mg po daily Given adequate blood pressure control will continue with current regimen Most recent electrolytes, Bun and Creatinine done on: Lab Results Component Value Date NA 139 05/09/2024 NA 140 04/30/2024 K 4.7 05/09/2024 K 5.2 (H) 04/30/2024 CL 107 05/09/2024 CL 107 04/30/2024 BUN 23 (H) 05/09/2024 BUN 22 (H) 04/30/2024 CREATININE 1.01 05/09/2024 CREATININE 0.88 04/30/2024 were within normal limits. patient advised to adhere to a low sodium diet, encouraged about medication compliance, counseled about weight loss. * Assessment & Plan Note - Benji Corbin MD - 10/31/2024 2:25 PM EDT Associated Problem(s): Type 2 diabetes mellitus (CMS/HCC) Patient is here for a follow up DM Controlled He is on a regimen of Trulicity 1.5 once a week (injected by his significant other) and Pioglitazone 15 mg po daily In the past he was on Ozempic. Pt did not tolerate Metformin XR due to stomach upset. He has phobiato needles so he does not want to use insulin Hgb A1c 10/31/2024: 7 from 7.9 from 6.5 Eye exam: Pt was referred to our Eye care Program Microalbumin checked on: 04/30/2024 was: 78 Pt on an MALIK inhibitor (lisinopril ) Foot check not done Plan: Continue current regimen Pt is allergic to Asa 81 mg po daily (severe swelling) Pt has been advised to: adhere to diabetic diet Pt will come back to see me in 3 months check your blood sugars regularly check your feet on a daily basis * Addendum Note - Nahomi Drake MA - 10/31/2024 2:00 PM EDTAddended by: NAHOMI DRAKE on: 10/31/2024 03:06 PM Modules accepted: Orders * Addendum Note - Nahomi Drake MA - 10/31/2024 2:00 PM EDTAddended by: NAHOMI DRAKE on: 10/31/2024 03:25 PM Modules accepted: Orders documented in this encounter Plan of Treatment Upcoming Encounters Date Type Department Care Team (Late st Contact Info) Description 11/01/2024 10:00 AM EDT Clinical Support [facility] [address] [place] [address] Isabelle Dia RN [address] [place] [address] 11/28/2024 1:45 PM EDT Office Visit [facility] [address] [place], [place] [phone] Rupali Perez OD [address] [place] [address] 12/30/2024 2:00 PM EST Telemedicine [facility] [address] [place] [address] Isabelle Dia, RN [address] [place], [place] Scheduled Orders Name Type Priority Associated Diagnoses Orde r Schedule Drug Monitoring, Panel 1, Screen, Urine Lab Routine Chronic pain syndrome Expected: 10/31/2024 (Approximate), Expires: 10/31/2025 documented as of this encounter Procedures Procedure Name Priority Date/Time Associated Diagnosis Comments POCT JAKE-14 URINE DRUG SCREEN Routine 10/31/2024 3:11 PM EDT Chronic pain syndrome POCT GLYCATED HEMOGLOBIN, TOTAL Routine 10/31/2024 2:30 PM EDT Type 2 diabetes mellitus without complication, without long-term current use of insulin ([facility]) POCT GLUCOSE Routine 10/31/2024 2:29 PM EDT Type 2 diabetes mellitus without complication, without long-term current use of insulin ([facility]) documented in this encounter Results * (ABNORMAL) POCT JAKE-14 Urine Drug Screen (10/31/2024 3:11 PM EDT) THC Positive(A) Negative Cocaine Screen, Urine Negative Negative Opiate Screen, Urine Negative Negative Methamphetamine Screen Urine Negative Negative Amphetamine Screen, Urine Positive(A) Negative Benzodiazepines Screen, Urine Positive(A) Negative Barbiturate Screen, Urine Negative Negative Methadone Screen, Urine Negative Negative Buprenophine Screen, Urine Negative Negative TCA, Urine Negative Negative MDMA Urine Negative Negative ng/mL Oxycodone Screen, Urine Positive(A) Negative Phencyclidine (PCP), Urine Negative Negative Propoxyphene, Urine Negative Negative Fentanyl, Urine Negative Negative QC Media Lot # [id number] Lot# Expiration Date Urine Urine specimen obtained by clean catch procedure / Unknown 10/31/2024 3:11 PM EDT Benji Corbin MD POINT OF CARE TEST EN TER/EDIT ORDERABLES Final Result * (ABNORMAL) POCT Hgb A1c (10/31/2024 2:30 PM EDT) Hemoglobin A1C 7.0(A) 4.0 - 5.7 % QC Media Lot # [id number] Lot# Expiration Date [id number] Blood 10/31/2024 2:30 PM EDT Benji Corbin MD POINT OF CARE TEST EN TER/EDIT ORDERABLES Final Result * POCT Glucose (10/31/2024 2:29 PM EDT) Glucose Blood, POC 120 60 - 200 mg/dL QC Media Lot # [id number] Lot# Expiration Date [id number] Blood Capillary blood specimen / Unknown 10/31/2024 2:29 PM EDT Benji Corbin MD POINT OF CARE TEST EN TER/EDIT ORDERABLES Final Result documented in this encounter Visit Diagnoses Diagnosis Chronic pain syndrome- Primary Type 2 diabetes mellitus without complication, without long-term current use of insulin ([facility]) Essential hypertension Unspecified essential hypertension Mixed hyperlipidemia documented in this encounter Additional Health Concerns Assessment Noted Time PHQ-9 Depression Total Score: 23 025 2:16 PM EDT documented as of this encounter Care Teams Guest Room Attendant Relationship Specialty Start Date End Date Benji Hurtado MD [address] [place] [address] PCP - General Internal Medicine 10/10/13 documented as of this encounter
--- OUTSIDE RECORDS SUMMARY | 2024-10-31 16:42 | XMS_ITS | Encounter Summary ---
Author Organization [employer] Address [address] [facility] 7 [place] [address] Care Team Providers Care Kettle Cook Name Role Phone Benji Hurtado MD Primary Care Provide r Reason for Visit * Reason Onset Date Comments Med Refill 09/06/2022 Encounter Details Date Type Department Care Team (Late st Contact Info) Description 09/06/2022 Telephone [facility] [address] [place] [address] Benji Hurtado MD [address] [place] [address] Med Refill Social History Tobacco Use Types [...] Description 11/01/2024 10:00 AM EDT Clinical Support [facility] [address] [place] [address] Isabelle Dia, MARILUZ [address] [place] [address] 11/28/2024 1:45 PM EDT Office Visit [facility] OPTOMET[facility] [address] [place] [address] TarRupali calle, OD [address] [place] [address] 12/30/2024 2:00 PM EST Telemedicine [facility] MED & PEDS [address] [place] [address] Isabelle Dia, MARILUZ [address] [place], [place] [phone] documented as of this encounter Visit Diagnoses Not on filedocumented in this encounter Additional Health Concerns Assessment Noted Time PHQ-9 Depression Total Score: 9 03/22/19 23 1:26 PM EST documented as of this encounter Care Teams Kettle Cook Relationship Specialty Start Date End Date Benji Hurtado MD [address] [place] [address] PCP - General Internal Medicine 10/10/13 documented as of this encounter
--- OUTSIDE RECORDS SUMMARY | 2024-10-31 16:42 | XMS_ITS | Encounter Summary ---
Author Organization [employer] Address [address] [facility] 7 [place] [address] Care Team Providers Care Laborer Livestock Name Role Phone Benji Hurtado MD Primary Care Provide r Reason for Visit * Reason Comments Med Refill Encounter Details Date Type Department Care Team (Late st Contact Info) Description 07/30/2022 Refill [facility] [address] [place] [address] Dione Martin ANP [address] [place] [address] Social History Tobacco Use Types Packs/Day Years [...] Description 11/01/2024 10:00 AM EDT Clinical Support [facility] [address] [place] [address] Isabelle Dia RN [address] [place] [address] 11/28/2024 1:45 PM EDT Office Visit [facility] OPTOMETRY [address] [place] [address] ConstantinlucRupali, OD [address] [place] [address] 12/30/2024 2:00 PM EST Telemedicine [facility] [address] [place], [place] [phone] Isabelle Dia, RN [address] [place] [address] documented as of this encounter Visit Diagnoses Not on filedocumented in this encounter Additional Health Concerns Assessment Noted Time PHQ-9 Depression Total Score: 9 03/22/19 23 1:26 PM EST documented as of this encounter Care Teams Laborer Livestock Relationship Specialty Start Date End Date Benji Hurtado MD [address] [place] [address] PCP - General Internal Medicine 10/10/13 documented as of this encounter
--- OUTSIDE RECORDS SUMMARY | 2024-10-31 16:42 | XMS_ITS | Encounter Summary ---
Author Organization [employer] Address [address] [place] [address] Care Team Providers Care Carpenter Ship Name Role Phone Benji Hurtado MD Primary Care Provide r Reason for Visit * Reason Comments Med Refill Encounter Details Date Type Department Care Team (Late st Contact Info) Description 01/31/2023 Refill [facility] MED & PEDS [address] [place] [address] Benji Hurtado MD [address] [place] [address] Primary osteoarthritis of hip, unspecified laterality Social [...] Description 11/01/2024 10:00 AM EDT Clinical Support [facility] MEDICINE [address] [place] [address] Isabelle Dia RN [address] [place] [address] 11/28/2024 1:45 PM EDT Office Visit [facility] OPTOMETRY [address] [place] [address] TarkaRupali, OD [address] [place] [address] 12/30/2024 2:00 PM EST Telemedicine [facility] MED [facility] PEDS [address] [place] [address] sIabelle Dia RN [address] [place] [address] documented as of this encounter Visit Diagnoses Diagnosis Primary osteoarthritis of hip, unspecified laterality documented in this encounter Additional Health Concerns Assessment Noted Time PHQ-9 Depression Total Score: 9 03/22/19 23 1:26 PM EST documented as of this encounter Care Teams Carpenter Ship Relationship Specialty Start Date End Date Benji Hurtado MD [address] [place] [address] PCP - General Internal Medicine 10/10/13 documented as of this encounter
--- OUTSIDE RECORDS SUMMARY | 2024-10-31 16:42 | XMS_ITS | Encounter Summary ---
Author Organization [employer] Address [address] [place] [address] Care Team Providers Care Time Study Engineer Name Role Phone Benji Hurtado MD Primary Care Provide r Reason for Visit * Reason Onset Date Comments Med Refill 01/17/2024 Encounter Details Date Type Department Care Team (Late st Contact Info) Description 01/17/2024 Telephone [facility] MEDICINE [address] [place] [address] Benji Hurtado MD [address] [place] [address] Med Refill Social History Tobacco Use Types [...] 12 hr tablet To be sent to: [facility] - [place], [place] - [address] [place] [address] documented in this encounter Plan of Treatment Upcoming Encounters Date Type Department Care Team ([facility] st Contact Info) Description 11/01/2024 10:00 AM EDT Clinical Support [facility] MEDICINE [address] [place] [address] Isabelle Dia RN [address] [place] [address] 11/28/2024 1:45 PM EDT Office Visit [facility] OPTOMETRY [address] [place] [address] Rupali Perez OD [address] [place] [address] 12/30/2024 2:00 PM EST Telemedicine [facility] CH[facility] MED & PEDS [address] [place] [address] Isabelle Dia RN [address] [place] [address] documented as of this encounter Visit Diagnoses Not on filedocumented in this encounter Additional Health Concerns Assessment Noted Time PHQ-9 Depression Total Score: 7 06/01/19 24 1:38 PM EDT documented as of this encounter Care Teams Time Study Engineer Relationship Specialty Start Date End Date Benji Hurtado MD [address] [place] [address] PCP - General Internal Medicine 10/10/13 documented as of this encounter
--- OUTSIDE RECORDS SUMMARY | 2024-10-31 16:42 | XMS_ITS | Encounter Summary ---
Author Organization [employer] Address [address] [facility] [address] [place] [address] Care Team Providers Care Profiling Machine Set Up Operator Name Role Phone Benji Hurtado MD Primary Care Provide r Reason for Visit * Reason Onset Date Comments Med Refill 02/18/2022 Encounter Details Date Type Department Care Team (Late st Contact Info) Description 02/18/2022 Refill [facility] MEDICINE [address] [place] [phone] Benji Hurtado MD [address] [place] [address] Social History Tobacco Use Types Packs/Day Years [...] Description 11/01/2024 10:00 AM EDT Clinical Support [facility] MEDICINE [address] [place] [address] Isabelle Dia RN [address] [place], [place] 11/28/2024 1:45 PM EDT Office Visit [facility] OPTOMETRY [address] [place] [address] Rupali Perez, OD [address] [place], [place] 12/30/2024 2:00 PM EST Telemedicine [facility] CH[facility] MED & PEDS [address] [place], [place] [phone] Isabelle Dia RN [address] [place], [place] documented as of this encounter Visit Diagnoses Not on filedocumented in this encounter Care Teams Profiling Machine Set Up Operator Relationship Specialty Start Date End Date Benji Hurtado MD [address] [place] [address] PCP - General Internal Medicine 10/10/13 documented as of this encounter
--- OUTSIDE RECORDS SUMMARY | 2024-10-31 16:42 | XMS_ITS | Clinical Summary ---
Author Organization [address] [facility] Address 175 [place] [address] Phone Care Team Providers Care Log Brander Name Role Phone Benji Hugo MD Primary Care Provi [facility] Surgical History Surgery Date Site/Laterality Comments APPENDECTOMY PROCEDURE: HISTORICAL APPENDECTOMY Family History Medical History Relation Name Comments Diabetes Mother Kidney failure Mother Other: coronary artery disease Mother Relation Name Status Comments Brother 1 Alive Brother 2 Alive Father Mother Sister Alive Social History Tobacco Use Types Packs/Day Years Used Date Smoking Tobacco: Former Cigarettes Alcohol Use Standard Drinks/Week Comments Yes 0 (1 standard drink = 0.6 oz pur e alcohol) Sex and Gender Information Value Date Recorded Sex Assigned at Not on file Legal Sex Male 1:00 AM EST Gender Identity Not on file Sexual Orientation Not on file Obstetrics History Last Filed Vital Signs Vital Sign Reading Time Taken Comments Blood Pressure - - Pulse - - Temperature - - Respiratory Rate - - Oxygen Saturation - - Inhaled Oxygen Concentration - - Weight 149 kg (329 lb) 04/26/2023 10:48 AM EST Height 188 cm (6' 2 ) 04/26/2023 10:48 AM EST Body Mass Index 42.24 04/26/2023 10:48 AM EST Plan of Treatment Upcoming Encounters Date Type Department Care Team (Late st Contact Info) Description 11/13/2024 10:15 AM EDT Office Visit Orthopedic Surgery [facility] [address] [address] Adolph Whitney DPM [address] [address] Health Maintenance Due Date Last Done Comments Diabetes: Annual GFR (Glomer ular Filtration Rate) 1979 Diabetes: Annual Foot Exam 11/29/1989 Diabetes: Annual Retina Eye Exam 11/29/1989 Hepatitis B Vaccines (1 of 3 - 19+ 3-dose series) 11/29/1998 Pneumococcal Vaccine: Pediat rics (0 to 5 Years) and At-Risk Patients (6 to 49 Years) (1 of 2 - PCV) 11/29/1998 DTaP,Tdap,and Td Vaccines (2 - Td or Tdap) 08/03/2016 08/03/2006 Cholesterol Screening (Lipid Panel) 09/26/2023 HIV Screening 09/26/2023 Hepatitis C Screening 09/26/2023 Social Influencers of Health Screening 09/26/2023 Depression Screening 02/28/2024 Diabetes: Annual Urine Albumin-Creatinine Ratio (uACR) 08/21/2024 Diabetes: Blood Sugar Contro l Test (HGBA1C) 08/21/2024 COVID-19 Vaccine ( - 2023-2 5 season) 2024 Influenza Vaccine (#1) 2024 12/10/2007 HIB Vaccines Aged Out No longer eligi ble based on patient's age to complete this topic HPV Vaccines Aged Out No longer eligi ble based on patient's age to complete this topic Hepatitis A Vaccines Aged Out No long er eligible based on patient's age to complete this topic IPV Vaccines Aged Out No longer eligi ble based on patient's age to complete this topic MMR Vaccines Aged Out No longer eligi ble based on patient's age to complete this topic Meningococcal ACWY Vaccine Aged Out N o longer eligible based on patient's age to complete this topic Meningococcal B Vaccine Aged Out No l onger eligible based on patient's age to complete this topic RSV Immunization Patients Un alvin 20 months Aged Out No longer eligible b ased on patient's age to complete this topic Varicella Vaccines Aged Out No longer eligible based on patient's age to complete this topic Insurance MEDICAID - [place] Care Teams Log Brander Relationship Specialty Start Date End Date Benji Hugo MD [address] [place] [address] PCP - General 03/01/23
--- OUTSIDE RECORDS SUMMARY | 2024-10-31 16:42 | XMS_ITS | Encounter Summary ---
Author Organization [employer] Address [address] 7[address] [place] [address] Care Team Providers Care Tank Farm Attendant Name Role Phone Benji Hurtado MD Primary Care Provide r Reason for Visit * Reason Onset Date Comments Appointment Request 01/17/2023 Encounter Details Date Type Department Care Team ([facility] st Contact Info) Description 01/17/2023 Telephone [facility] MEDICINE 230 [place] [address] Benji Hurtado MD 230 [place], [place] [phone] Appointment Request Social History Tobacco Use Types [...] * Telephone Encounter - Armando Kirkpatrick - 01/17/2023 12:46 PM EST Tc from pt requesting to r/s appt for Follow up for a 4 mo f/u dm @ 1:15 pm. Pt Cannot make it due to transportation. Please contact pt at [phone] documented in this encounter Plan of Treatment Upcoming Encounters Date Type Department Care Team (Late st Contact Info) Description 11/01/2024 10:00 AM EDT Clinical Support [facility] MEDICINE 230 [place] [address] Isabelle Dia RN 505 [place] [address] 11/28/2024 1:45 PM EDT Office Visit [facility] OPTOMETRY [address] [place] [address] TarkaRupali, OD 267 [place] [address] 12/30/2024 2:00 PM EST Telemedicine [facility] MED & PEDS 505 [place] [address] Isabelle Dia RN 505 [place] [address] documented as of this encounter Visit Diagnoses Not on filedocumented in this encounter Additional Health Concerns Assessment Noted Time PHQ-9 Depression Total Score: 9 03/22/19 23 1:26 PM EST documented as of this encounter Care Teams Tank Farm Attendant Relationship Specialty Start Date End Date Benji Hurtado MD 230 [place] [address] PCP - General Internal Medicine 10/10/13 documented as of this encounter
--- OUTSIDE RECORDS SUMMARY | 2024-10-31 16:42 | XMS_ITS | Encounter Summary ---
Author Organization [employer] Address [address] 7t [place] [address] Care Team Providers Care Finishing Powder Press Operator Name Role Phone Benji Hurtado MD Primary Care Provide r Reason for Visit * Reason Comments Med Refill Encounter Details Date Type Department Care Team (Late st Contact Info) Description 02/02/2023 Refill [facility] MED & PEDS [address] [place] [address] Benji Hurtado MD 230 [place] [address] Primary osteoarthritis of hip, unspecified laterality Social [...] Description 11/01/2024 10:00 AM EDT Clinical Support [facility] MEDICINE 230 [place] [address] Isabelle Dia RN 505 [place] [address] 11/28/2024 1:45 PM EDT Office Visit [facility] OPTOMETRY [address] [place] [address] TarkaRupali, OD 267 [place] [address] 12/30/2024 2:00 PM EST Telemedicine [facility] MED & PEDS 505 [place] [address] Isabelle Dia RN [address] [place] [address] documented as of this encounter Visit Diagnoses Diagnosis Primary osteoarthritis of hip, unspecified laterality documented in this encounter Additional Health Concerns Assessment Noted Time PHQ-9 Depression Total Score: 9 03/22/19 23 1:26 PM EST documented as of this encounter Care Teams Finishing Powder Press Operator Relationship Specialty Start Date End Date Benji Hurtado MD [address] [place] [address] PCP - General Internal Medicine 10/10/13 documented as of this encounter
--- OUTSIDE RECORDS SUMMARY | 2024-10-31 16:42 | XMS_ITS | Encounter Summary ---
Author Organization [employer] Address [address] [address] [place] [address] Care Team Providers Care Financial Systems Analyst Name Role Phone Benji Hurtado MD Primary Care Provide r Reason for Visit * Reason Onset Date Comments Med Refill 12/30/2022 Encounter Details Date Type Department Care Team (Late st Contact Info) Description 12/30/2022 Telephone [facility] MEDICINE 230 [place] [address] Benji Hurtado MD 230 [place], [place] [phone] Med Refill Social History Tobacco Use Types [...] on message above. Please contact pt at [phone] * Telephone Encounter - Jacoby Uribe - 12/30/2022 4:32 PM EDT TC from pt states [facility] pharmacy gave 3 day supply of oxyCODONE [...] Description 11/01/2024 10:00 AM EDT Clinical Support [address] [address] Isabelle Dia, MARILUZ 505 [place] [address] 11/28/2024 1:45 PM EDT Office Visit [facility] OPTOMETRY 267 [place] [address] Ana Rupali, OD 267 [place] [address] 12/30/2024 2:00 PM EST Telemedicine [facility] CHC MED & PEDS 505 [place] [address] Isabelle Dia RN 505 [place], [place] [phone] documented as of this encounter Visit Diagnoses Not on filedocumented in this encounter Additional Health Concerns Assessment Noted Time PHQ-9 Depression Total Score: 9 03/22/19 23 1:26 PM EST documented as of this encounter Care Teams Financial Systems Analyst Relationship Specialty Start Date End Date Benji Hurtado MD [address] [place] [address] PCP - General Internal Medicine 10/10/13 documented as of this encounter
--- OUTSIDE RECORDS SUMMARY | 2024-10-31 16:42 | XMS_ITS | Encounter Summary ---
Author Organization [employer] Address [address] 7t [place] [address] Care Team Providers Care Stopper Maker Name Role Phone Benji Hurtado MD Primary Care Provide r Reason for Visit * Reason Onset Date Comments Medication Question 03/14/2024 Encounter Details Date Type Department Care Team ([facility] st Contact Info) Description 03/14/2024 Telephone [facility] MEDICINE 230 [place] [address] Benji Hurtado MD 230 [place], [place] [phone] Medication Question Social History Tobacco Use Types Packs/Day Years Used Date Smoking Tobacco: Every Day Cigarettes Passive Smoke Exposure: Current Smokeless Tobacco: Never Depression Answer Date Recorded Patient Health Questionnaire-9 Score 7 06/01/2023 Patient Health Questionnaire-9 Score 7 06/01/2023 Last PHQ-9: Questionnaire Data Not on file 0 06/01/2023 Housing Stability Answer Date Recorded What is your housing situation today? I have joellay ray 06/01/[address] you [...] 10:00 AM EDT Clinical Support [facility] MEDICINE 230 [place] [address] Isabelle Dia, MARILUZ 505 [place] [address] 11/28/2024 1:45 PM EDT Office Visit [facility] OPTOMETRY 267 [place] [address] Rupali Perez, OD 267 [place] [address] 12/30/2024 2:00 PM EST Telemedicine [facility] CHC MED & PEDS 505 [place] [address] Isabelle Dia, RN 505 [place] [address] documented as of this encounter Visit Diagnoses Not on filedocumented in this encounter Additional Health Concerns Assessment Noted Time PHQ-9 Depression Total Score: 7 06/01/19 24 1:38 PM EDT documented as of this encounter Care Teams Stopper Maker Relationship Specialty Start Date End Date Benji Hurtado MD 230 [place] [address] PCP - General Internal Medicine 10/10/13 documented as of this encounter
--- OUTSIDE RECORDS SUMMARY | 2024-10-31 16:42 | XMS_ITS | Encounter Summary ---
Author Organization [employer] Address [address] 7t [place] [address] Care Team Providers Care Turn Laster Name Role Phone Benji Hurtado MD Primary Care Provide r Reason for Visit * Reason Onset Date Comments PA 09/21/2023 Encounter Details Date Type Department Care Team (Late st Contact Info) Description 09/21/2023 Telephone [facility] MEDICINE 230 [place] [address] Benji Hurtado MD 230 [place], [place] [phone] PA Social History Tobacco Use Types Packs/Day [...] Description 11/01/2024 10:00 AM EDT Clinical Support [address] [address] Isabelle Dia, RN 505 [place] [address] 11/28/2024 1:45 PM EDT Office Visit [facility] OPTOMETRY [address] [place] [address] Rupali Perez, OD 267 [place] [address] 12/30/2024 2:00 PM EST Telemedicine [facility] CHC MED & PEDS 505 [place] [address] Isabelle Dia RN 505 [place], [place] [phone] documented as of this encounter Visit Diagnoses Not on filedocumented in this encounter Additional Health Concerns Assessment Noted Time PHQ-9 Depression Total Score: 7 06/01/19 24 1:38 PM EDT documented as of this encounter Care Teams Turn Laster Relationship Specialty Start Date End Date Benji Hurtado MD [address] [place] [address] PCP - General Internal Medicine 10/10/13 documented as of this encounter
--- OUTSIDE RECORDS SUMMARY | 2024-10-31 16:42 | XMS_ITS | Encounter Summary ---
Author Organization [employer] Address [address] [address] 7t [place] [address] Care Team Providers Care Enlisted Advisor Name Role Phone Benji Hurtado MD Primary Care Provide r Reason for Visit * Reason Onset Date Comments Med Refill 07/22/2023 Encounter Details Date Type Department Care Team (Late st Contact Info) Description 07/22/2023 Refill [facility] MEDICINE 230 [place] [address] Benji Hurtado MD 230 [place] [address] Social History Tobacco Use Types Packs/Day Years [...] Description 11/01/2024 10:00 AM EDT Clinical Support [facility] MEDICINE 230 [place] [address] Isabelle Dia RN 505 [place] [address] 11/28/2024 1:45 PM EDT Office Visit [facility] OPTOMETRY 267 [place] [address] Rupali Perez, OD 267 [place] [address] 12/30/2024 2:00 PM EST Telemedicine [facility] CHC MED & PEDS 505 [place] [address] Isabelle Dia RN 505 [place] [address] documented as of this encounter Visit Diagnoses Not on filedocumented in this encounter Additional Health Concerns Assessment Noted Time PHQ-9 Depression Total Score: 7 06/01/19 24 1:38 PM EDT documented as of this encounter Care Teams Enlisted Advisor Relationship Specialty Start Date End Date Benji Hurtado MD 230 [place] [address] PCP - General Internal Medicine 10/10/13 documented as of this encounter
--- OUTSIDE RECORDS SUMMARY | 2024-10-31 16:42 | XMS_ITS | Encounter Summary ---
Author Organization [employer] Address [address] [facility] 7t [place] [address] Care Team Providers Care Computer Network And Systems Engineer Name Role Phone Benji Hurtado MD Primary Care Provide r Reason for Visit * Reason Comments Med Refill Encounter Details Date Type Department Care Team (Late st Contact Info) Description 06/15/2022 Refill [facility] MEDICINE 230 [place] [address] Benji Hurtado MD 230 [place] [address] Primary osteoarthritis of hip, unspecified laterality Social [...] Description 11/01/2024 10:00 AM EDT Clinical Support [facility] MEDICINE 230 [place] [address] Isabelle Dia RN 505 [place], [place] 11/28/2024 1:45 PM EDT Office Visit [facility] OPTOMETRY 267 [place] [address] TarkaRupali, OD 267 [place], [place] 12/30/2024 2:00 PM EST Telemedicine [facility] CHC MED & PEDS 505 [place] [address] Isabelle Dia RN [address] [place] documented as of this encounter Visit Diagnoses Diagnosis Primary osteoarthritis of hip, unspecified laterality documented in this encounter Additional Health Concerns Assessment Noted Time PHQ-9 Depression Total Score: 9 03/22/19 23 1:26 PM EST documented as of this encounter Care Teams Computer Network And Systems Engineer Relationship Specialty Start Date End Date Benji Hurtado MD 230 [place] [address] PCP - General Internal Medicine 10/10/13 documented as of this encounter
--- OUTSIDE RECORDS SUMMARY | 2024-10-31 16:42 | XMS_ITS | Encounter Summary ---
Author Organization [employer] Address [address] [facility] 7 [place] [address] Care Team Providers Care Installation Supervisor Name Role Phone Benji Hurtado MD Primary Care Provide r Reason for Visit * Reason Onset Date Comments Med Refill 06/10/2022 Encounter Details Date Type Department Care Team (Late st Contact Info) Description 06/10/2022 Telephone [facility] MEDICINE 230 [place] [address] Benji Hurtado MD 230 [place] [address] Med Refill Social History Tobacco Use Types [...] * Telephone Encounter - Armando Kirkpatrick - 06/10/2022 11:17 AM EDT Tc from pt requesting med refill on oxyCODONE ER (OxyCONTIN) 60 MG 12 hr tablet Please sent to [facility] - [place], [place] - [address] [facility] documented in this encounter Plan of Treatment Upcoming Encounters Date Type Department Care Team (Late st Contact Info) Description 11/01/2024 10:00 AM EDT Clinical Support [facility] MEDICINE 230 [place] [address] Isabelle Dia RN 505 [place] [address] 11/28/2024 1:45 PM EDT Office Visit [facility] OPTOMETRY 267 [place] [address] Rupali Perez, OD 267 [place] [address] 12/30/2024 2:00 PM EST Telemedicine [facility] CHC MED & PEDS 505 [place] [address] Isabelle Dia RN 505 [place] [address] documented as of this encounter Visit Diagnoses Not on filedocumented in this encounter Additional Health Concerns Assessment Noted Time PHQ-9 Depression Total Score: 9 03/22/19 23 1:26 PM EST documented as of this encounter Care Teams Installation Supervisor Relationship Specialty Start Date End Date Benji Hurtado MD [address] [place] [address] PCP - General Internal Medicine 10/10/13 documented as of this encounter
--- OUTSIDE RECORDS SUMMARY | 2024-10-31 16:42 | XMS_ITS | Encounter Summary ---
Author Organization [employer] Address [address] [place] [address] Care Team Providers Care Data Transcriber Name Role Phone Benji Hurtado MD Primary Care Provide r Encounter Details Date Type Department Care Team (Latest Contact Info) Description 10/31/2024 Travel Social History Tobacco Use Types Packs/Day Years [...] Description 11/01/2024 10:00 AM EDT Clinical Support [facility] MEDICINE 230 [place] [address] Isabelle Dia RN 505 [place] [address] 11/28/2024 1:45 PM EDT Office Visit [facility] OPTOMETRY [address] [place] [address] Rupali Perez, OD 267 [place] [address] 12/30/2024 2:00 PM EST Telemedicine [facility] CHC MED & PEDS 505 [place] [address] Isabelle Dia, MARILUZ [address] [place] [address] documented as of this encounter Visit Diagnoses Not on filedocumented in this encounter Additional Health Concerns Assessment Noted Time PHQ-9 Depression Total Score: 23 025 2:16 PM EDT documented as of this encounter Care Teams Data Transcriber Relationship Specialty Start Date End Date Benji Hurtado MD 230 [place] [address] PCP - General Internal Medicine 10/10/13 documented as of this encounter
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
--- OUTSIDE RECORDS SUMMARY | 2024-10-31 16:42 | XMS_ITS | Encounter Summary ---
Author Organization [employer] Address [address] 7[address] [place] [address] Care Team Providers Care Oil Lease Broker Name Role Phone Benji Hurtado MD Primary Care Provide r Reason for Visit * Reason Comments Med Refill Encounter Details Date Type Department Care Team (Late st Contact Info) Description 07/28/2023 Refill [facility] MED & PEDS [address] [place] [address] Benji Hurtado MD 230 [place] [address] Primary osteoarthritis of hip, unspecified laterality Social [...] 11/01/2024 10:00 AM EDT Clinical Support [facility] MED[facility]INE 230 [place] [address] Isabelle Dia RN 505 [place] [address] 11/28/2024 1:45 PM EDT Office Visit [facility] OPTOMETRY 267 [place] [address] Rupali Perez, OD 267 [place] [address] 12/30/2024 2:00 PM EST Telemedicine [facility] MED [facility] PEDS 505 [place] [address] Isabelle Dia RN 505 [place] [address] documented as of this encounter Visit Diagnoses Diagnosis Primary osteoarthritis of hip, unspecified laterality documented in this encounter Additional Health Concerns Assessment Noted Time PHQ-9 Depression Total Score: 7 06/01/19 24 1:38 PM EDT documented as of this encounter Care Teams Oil Lease Broker Relationship Specialty Start Date End Date Benji Hurtado MD [address] [place] [address] PCP - General Internal Medicine 10/10/13 documented as of this encounter
--- OUTSIDE RECORDS SUMMARY | 2024-10-31 16:42 | XMS_ITS | Encounter Summary ---
Author Organization [employer] Address [address] 7[address] [place] [address] Care Team Providers Care Informatics Specialist Name Role Phone Benji Hurtado MD Primary Care Provide r Reason for Visit * Reason Onset Date Comments Prior Authorization 05/09/2023 Encounter Details Date Type Department Care Team ([facility] st Contact Info) Description 05/09/2023 Telephone [facility] MEDICINE [address] [place] [address] Benji Hurtado MD [address] [place] [address] Prior Authorization Social History Tobacco Use Types [...] SIGNATURE. ONCE SIGNED WILL BE FAXED TO [facility] FOR APPROVAL AND SCAN TO MEDIA. * Telephone Encounter - Esther Reis - 05/09/2023 12:35 PM EDT TC from Dustin from [facility] requesting a urgent call back regarding 2 medications . Would like to know if pt should be on both meds . oxyCODONE (Roxicodone) 30 MG immediate release tablet oxyCODONE ER (OxyCONTIN) 60 MG 12 hr tablet documented in this encounter Plan of Treatment Upcoming Encounters Date Type Department Care Team (Late st Contact Info) Description 11/01/2024 10:00 AM EDT Clinical Support [facility] MEDICINE [address] [place] [address] Isabelle Dia RN [address] [place] [address] 11/28/2024 1:45 PM EDT Office Visit [facility] OPTOMETRY [address] [place] [address] Rupali Perez, OD [address] [place] [address] 12/30/2024 2:00 PM EST Telemedicine [facility] CHC MED & PEDS [address] [place] [address] Isabelle Dia, RN [address] [place], [place] documented as of this encounter Visit Diagnoses Not on filedocumented in this encounter Additional Health Concerns Assessment Noted Time PHQ-9 Depression Total Score: 9 03/22/19 23 1:26 PM EST documented as of this encounter Care Teams Informatics Specialist Relationship Specialty Start Date End Date Benji Hurtado MD [address] [place] [address] PCP - General Internal Medicine 10/10/13 documented as of this encounter
--- OUTSIDE RECORDS SUMMARY | 2024-10-31 16:42 | XMS_ITS | Encounter Summary ---
Author Organization [employer] Address [address] 7[address] [place] [address] Care Team Providers Care Pump Press Operator Name Role Phone Benji Hurtado MD Primary Care Provide r Reason for Visit * Reason Comments Med Refill Encounter Details Date Type Department Care Team (Late st Contact Info) Description 03/01/2023 Refill [facility] MED & PEDS [address] [place] [address] Benji Hurtado MD [address] [place] [address] Primary osteoarthritis of hip, unspecified laterality Social [...] 11/01/2024 10:00 AM EDT Clinical Support [facility] MEDICINE [address] [place] [address] Isabelle Dia RN [address] [place] [address] 11/28/2024 1:45 PM EDT Office Visit [facility] OPTOMETRY [address] [place] [address] TarkaRupali, OD [address] [place] [address] 12/30/2024 2:00 PM EST Telemedicine [facility] CHC MED & PEDS [address] [place] [address] Isabelle Dia RN [address] [place] [address] documented as of this encounter Visit Diagnoses Diagnosis Primary osteoarthritis of hip, unspecified laterality documented in this encounter Additional Health Concerns Assessment Noted Time PHQ-9 Depression Total Score: 9 03/22/19 23 1:26 PM EST documented as of this encounter Care Teams Pump Press Operator Relationship Specialty Start Date End Date Benji Hurtado MD [address] [place] [address] PCP - General Internal Medicine 10/10/13 documented as of this encounter
--- OUTSIDE RECORDS SUMMARY | 2024-10-31 16:43 | XMS_ITS | Encounter Summary ---
Author Organization [employer] Address [address] [place] [address] Care Team Providers Care Radio Division Lieutenant Name Role Phone Benji Hurtado MD Primary Care Provide r Reason for Visit * Reason Onset Date Comments Med Refill 06/07/2024 Encounter Details Date Type Department Care Team (Late st Contact Info) Description 06/07/2024 Telephone [facility] MEDICINE [address] [place] [address] Benji Hurtado MD [address] [place] [address] Med Refill Social History Tobacco Use Types [...] * Telephone Encounter - Esther Reis - 06/07/2024 1:51 PM EDT TC from pt requesting medication refill. Medications needing refill : oxyCODONE (Roxicodone) 30 MG immediate release tablet To be sent to: [facility] - [place], [place] - [address] [place] [address] documented in this encounter Plan of Treatment Upcoming Encounters Date Type Department Care Team ([facility] st Contact Info) Description 11/01/2024 10:00 AM EDT Clinical Support [facility] MEDICINE [address] [place] [address] Isabelle Dia, RN [address] [place] [address] 11/28/2024 1:45 PM EDT Office Visit [facility] OPTOMETRY [address] [place] [address] Rupali Perez, OD [address] [place] [address] 12/30/2024 2:00 PM EST Telemedicine [facility] CHC MED & PEDS [address] [place] [address] Isabelle Dia, MARILUZ [address] [place] [address] documented as of this encounter Visit Diagnoses Not on filedocumented in this encounter Additional Health Concerns Assessment Noted Time PHQ-9 Depression Total Score: 7 06/01/19 24 1:38 PM EDT documented as of this encounter Care Teams Radio Division Lieutenant Relationship Specialty Start Date End Date Benji Hurtado MD [address] [place] [address] PCP - General Internal Medicine 10/10/13 documented as of this encounter
--- OUTSIDE RECORDS SUMMARY | 2024-10-31 16:43 | XMS_ITS | Encounter Summary ---
Author Organization [employer] Address [address] [place] [address] Care Team Providers Care Senior Ui Developer Name Role Phone Benji Hurtado MD Primary Care Provide r Reason for Visit * Reason Onset Date Comments Med Refill 07/08/2024 Encounter Details Date Type Department Care Team (Late st Contact Info) Description 07/08/2024 Telephone [facility] MEDICINE [address] [place] [address] Benji Hurtado MD [address] [place] [address] Med Refill Social History Tobacco Use Types [...] * Telephone Encounter - Vanessa Pizano - 07/08/2024 11:53 AM EDT TC from pt requesting medication refill. Medications needing refill : oxyCODONE (Roxicodone) 30 MG immediate release tablet To be sent to: [facility] documented in this encounter Plan of Treatment Upcoming Encounters Date Type Department Care Team ([facility] st Contact Info) Description 11/01/2024 10:00 AM EDT Clinical Support [facility] MEDICINE [address] [place] [address] Isabelle Dia RN [address] [place] [address] 11/28/2024 1:45 PM EDT Office Visit [facility] OPTOMETRY [address] [place] [address] Rupali Perez, OD [address] [place] [address] 12/30/2024 2:00 PM EST Telemedicine [facility] CHC MED & PEDS [address] [place] [address] Isabelle Dia RN [address] [place] [address] documented as of this encounter Visit Diagnoses Not on filedocumented in this encounter Additional Health Concerns Assessment Noted Time PHQ-9 Depression Total Score: 7 06/01/19 24 1:38 PM EDT documented as of this encounter Care Teams Senior Ui Developer Relationship Specialty Start Date End Date Benji Hurtado MD [address] [place] [address] PCP - General Internal Medicine 10/10/13 documented as of this encounter
--- OUTSIDE RECORDS SUMMARY | 2024-10-31 16:43 | XMS_ITS | Encounter Summary ---
Author Organization [employer] Address [address] [facility] 7 [place] [address] Care Team Providers Care Revenue Research Analyst Name Role Phone Benji Hurtado MD Primary Care Provide r Reason for Visit * Reason Onset Date Comments Med Refill 09/30/2022 Encounter Details Date Type Department Care Team (Late st Contact Info) Description 09/30/2022 Telephone [facility] MEDICINE [address] [place] [address] Benji Hurtado MD [address] [place] [address] Med Refill Social History Tobacco Use Types [...] Description 11/01/2024 10:00 AM EDT Clinical Support [facility] MEDICINE [address] [place] [address] Isabelle Dia, MARILUZ [address] [place] [address] 11/28/2024 1:45 PM EDT Office Visit [facility] OPTOMETRY [address] [place] [address] TarkaRupali, OD [address] [place] [address] 12/30/2024 2:00 PM EST Telemedicine [facility] CHC MED & PEDS [address] [place] [address] Isabelle Dia RN [address] [place], [place] [phone] documented as of this encounter Visit Diagnoses Not on filedocumented in this encounter Additional Health Concerns Assessment Noted Time PHQ-9 Depression Total Score: 9 03/22/19 23 1:26 PM EST documented as of this encounter Care Teams Revenue Research Analyst Relationship Specialty Start Date End Date Benji Hurtado MD [address] [place] [address] PCP - General Internal Medicine 10/10/13 documented as of this encounter
--- OUTSIDE RECORDS SUMMARY | 2024-10-31 16:43 | XMS_ITS | Encounter Summary ---
Author Organization [employer] Address [address] [place] [address] Care Team Providers Care Rv Body Mechanic Name Role Phone Benji Hurtado MD Primary Care Provide r Reason for Visit * Reason Onset Date Comments Med Refill 05/31/2024 Encounter Details Date Type Department Care Team (Late st Contact Info) Description 05/31/2024 Refill [facility] MED & PEDS [address] [place] [address] Benji Hurtado MD [address] [place] [address] Chronic pain syndrome; Primary osteoarthritis of hip, [...] Description 11/01/2024 10:00 AM EDT Clinical Support [facility] MEDICINE [address] [place] [address] Isabelle Dia RN [address] [place] [address] 11/28/2024 1:45 PM EDT Office Visit [facility] OPTOMETRY [address] [place] [address] TarRupali calle, OD [address] [place] [address] 12/30/2024 2:00 PM EST Telemedicine [facility] CHC MED & PEDS [address] [place] [address] Isabelle Dia RN [address] [place] [address] documented as of this encounter Visit Diagnoses Diagnosis Chronic pain syndrome Primary osteoarthritis of hip, unspecified laterality documented in this encounter Additional Health Concerns Assessment Noted Time PHQ-9 Depression Total Score: 7 06/01/19 24 1:38 PM EDT documented as of this encounter Care Teams Rv Body Mechanic Relationship Specialty Start Date End Date Benji Hurtado MD [address] [place] [address] PCP - General Internal Medicine 10/10/13 documented as of this encounter
--- OUTSIDE RECORDS SUMMARY | 2024-10-31 16:43 | XMS_ITS | Clinical Summary ---
Author Organization [employer] Address [address] 7[address] [place] [address] Care Team Providers Care Brand Coordinator Name Role Phone Benji Hurtado MD Primary [...] every day 018 Active Continuous Blood Gluc Microbiology Laboratory Manager ([employer]BazaarStyle Garett 2 [place]) deviceIndications :Type 2 diabetes mellitus without complication, without long-term current use of insulin ([facility]/HCC) 1 applicator with breakfast, with lunch, and with evening meal. 1 each Active hydrOXYzine HCl (Atarax) 50 MG tablet Take 1 tablet by mouth if needed in the morning and at bedtime for anxiety. 023 Active Vyvanse 60 MG capsule Take 1 capsule by mouth in the morning. 023 Active mirtazapine (Remeron) 15 MG tablet TAKE 1/2 TO 1 TABLET BY MOUTH AT BEDTIME NEEDED FOR SLEEP 023 Active rosuvastatin (Crestor) 5 MG tabletIndications :Mixed hyperlipidemia Take 1 tablet (5 mg) by mouth Once per day. 30 tablet 2 Active Continuous Glucose Sensor (FreeStyle Garett 2 Sensor) miscIndications:T ype 2 diabetes mellitus without complication, without long-term current use of insulin (CMS/[facility]) USE DIRECTED TO TEST BLOOD SUGAR BEFORE BREAKFAST, BEFORE LUNCH, AND BEFORE SUPPER. CHANGE EVERY 14 DAYS 2 each 024 Active lisinopril 10 MG tabletIndications :Essential hypertension TAKE 1 TABLET BY MOUTH EVERY DAY IN THE MORNING 90 tablet 3 024 Active omeprazole (PriLOSEC) [address] capsuleIndication s:Epigastric pain TAKE 1 CAPSULE BY MOUTH EVERY DAY IN THE MORNING BEFORE BREAKFAST 90 capsule 3 024 Active pioglitazone (Actos) 15 MG tabletIndications :Type 2 diabetes mellitus without complication, without long-term current use of insulin (CMS/HCC) Take 1 tablet (15 mg) by mouth Once per day. 30 tablet 11 025 2025 Active Dulaglutide (Trulicity) 1.5 MG/0.5ML solution auto-injectorIndi cations:Type 2 diabetes mellitus without complication, without long-term current use of insulin (CMS/HCC) Inject 1.5 mg under the skin 1 (one) time per week. 0.5 mL 3 Active albuterol (Ventolin HFA) 108 (90 Base) MCG/ACT inhalerIndication s:Moderate persistent asthma without complication INHALE 2 PUFFS BY MOUTH EVERY 4 HOURS 18 g 1 Active oxyCODONE (Roxicodone) 30 MG immediate release tabletIndications :Chronic pain syndrome Take 1 tablet (30 mg) by mouth every 12 (twelve) hours if needed for severe pain for up to 28 days. Do not start before October 09, 2024. 56 tablet 025 2024 Active oxyCODONE ER (OxyCONTIN) 60 MG 12 hr tabletIndications :Primary osteoarthritis of hip, unspecified laterality Take 1 tablet (60 mg) by mouth every 12 (twelve) hours. Do not crush, chew, or split. Do not start before October 21, 2024. 56 tablet 025 Active oxyCODONE (Roxicodone) 30 MG immediate release tabletIndications :Chronic pain syndrome Take 1 tablet (30 mg) by mouth every 12 (twelve) hours if needed for severe pain for up to 28 days. 56 tablet 025 2024 Discontinued(R eorder (will not trigger notification to Pharmacy)) oxyCODONE ER (OxyCONTIN) 60 MG 12 hr tabletIndications :Primary osteoarthritis of hip, unspecified laterality Take 1 tablet (60 mg) by mouth every 12 (twelve) hours. Do not crush, chew, or split. Do not start before September 20, 2024. 56 tablet 025 2024 Discontinued(R eorder (will not trigger notification to Pharmacy)) Active Problems Problem Noted Date Diagnosed Date Long-term current use of opiate analgesic 2024 Overview (06/05/2024): Medication: Oxycodone ER 60mg BID, oxycodone 30mg BID Indication: OA hips, chronic low back pain, RSD of right foot Last CURRICULUM FACILITATOR Agreement: 07/27/23 Bilateral leg edema 02/28/2023 Assessment & Plan [...] he is currently seeing a therapist at [facility] ([facility]) and his Psychiatrist is Dr Iverson. Pt is on: Klonopin 1 mg TID and Vyvanze Currently reports he is stable although he struggles on a daily basis. Essential hypertension 12/18/2014 Assessment & Plan (10/31/2024 2:26 PM EDT): Patient with Hypertension currently controlled [...] counseled about weight loss. Assessment & Plan (08/01/2024 1:58 PM EDT): Patient with Hypertension currently controlled [...] counseled about weight loss. Assessment & Plan (04/30/2024 3:22 PM EST): [...] Plan (04/30/2024 3:23 PM EST): Referred to Adult Live In Caregiver in the past Patient has been counseled [...] Plan (02/28/2023 1:11 PM EST): Referred to Adult Live In Caregiver in the past Patient has been counseled and educated about diet and exercise. Personal goal of weight loss discussedPatient has comorbidity of: DM Assessment & Plan (03/22/2022 1:00 PM EST): Referred to Adult Live In Caregiver in the past Nonalcoholic steatohepatitis 11/12/2012 Type 2 diabetes mellitus 11/12/2012 Assessment & Plan (10/31/2024 2:46 PM EDT): Patient is here for a [...] on a daily basis Assessment & Plan (08/01/2024 2:12 PM EDT): Patient is here for a [...] not want to use insulin Hgb A1c 08/01/2024: 7.9 from 6.5 Eye exam: Pt was referred to our Eye care Program Microalbumin checked on: 04/30/2024 was: 78 Pt on an MALIK inhibitor (lisinopril ) Foot check not done Plan: Increase Trulicity to 1.5 mg once a week Pt is allergic to Asa 81 mg po daily (severe swelling) Pt has been advised to: adhere to diabetic diet Pt will come back to see me in 3 months check your blood sugars regularly check your feet on a daily basis Assessment & Plan (04/30/2024 3:44 PM EST): [...] feet on a daily basis Insurance denied [employer] garett sensor Assessment & Plan (06/01/2023 12:33 [...] Chronic pain syndrome 09/23/2011 Assessment & Plan (10/31/2024 2:57 PM EDT): Patient is here for a follow up Good days and bad days 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 He verbalizes understanding. 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 patient has [...] out Mixed hyperlipidemia 09/23/2011 Assessment & Plan (10/31/2024 2:27 PM EDT): Patient with elevated lipids. Most [...] to adhere to a low cholesterol diet Assessment & Plan (08/01/2024 1:59 PM EDT): Patient with elevated lipids. Most [...] to adhere to a low cholesterol diet Assessment & Plan (04/30/2024 3:39 PM EST): [...] Encounters Date Type Department Care Team Description 10/31/2024 2:00 PM EDT Office Visit [facility] [address] [place] [phone] Benji Hurtado MD Chronic pain syndrome (Primary Dx); Type 2 diabetes mellitus without complication, without long-term current use of insulin ([facility]); Essential hypertension; Mixed hyperlipidemia 10/31/2024 Travel 10/16/2024 Refill [facility] [address] [place] [address] Benji Hurtado MD Primary osteoarthritis of hip, unspecified laterality 10/07/2024 Refill [facility] [address] [place] [address] Benji Hurtado MD Chronic pain syndrome 09/19/2024 Refill [facility] [address] [place] [address] Benji Hurtado MD Primary osteoarthritis of hip, unspecified laterality 09/10/2024 Refill [facility] [address] [place] [address] Benji Hurtado MD Chronic pain syndrome 09/06/2024 9:30 AM EDT Clinical Support [facility] [address] [place] [address] Isabelle Dia, manager club pain syndrome 09/06/2024 Telephone [facility] [address] [place] [address] Isabelle Dia, RN 09/06/2024 Travel 08/21/2024 Refill [facility] [address] [place] [address] Benji Hurtado MD Primary osteoarthritis of hip, unspecified laterality 08/20/2024 Refill [facility] [address] [place] [address] Benji Hurtado MD 08/13/2024 Refill [facility] [address] [place] [address] Isabelle Dia, manager club pain syndrome 08/13/2024 Telephone [facility] [address] [place] [address] Benji Hurtado MD Med Refill 08/08/2024 Telephone [facility] [address] [place] [address] Luiza Duffy, asbestos shingle roofer 08/06/2024 Telephone [facility] [address] [place] [address] Benji Hurtado MD Prior Authorization 08/01/2024 2:00 PM EDT Office Visit [facility] [address] [place] [phone] Benji Hurtado MD Type 2 diabetes mellitus without complication, without long-term current use of insulin ([facility]) (Primary Dx); Essential hypertension; Mixed hyperlipidemia; Moderate persistent asthma without complication 08/01/2024 Telephone [facility] [address] [place] [address] Benji Hurtado MD nurse triage 08/01/2024 Travel 08/01/2024 Refill [facility] [address] [place] [address] Tiffanie Queen MD Chronic pain syndrome 07/31/2024 Telephone [facility] [address] [address] Benji Hurtado MD chart prep from Last 3 Months Immunizations Immunization Administration Dates Next Due DTP 11/27/1981, 1,05/30/1980,03/24 [...] Mass Index 40.7 10/31/2024 2:20 PM EDT Plan of Treatment Upcoming Encounters Date Type Department Care Team (Late st Contact Info) Description 11/01/2024 10:00 AM EDT Clinical Support [facility] [address] [place] [address] Isabelle Dia, RN [address] [place] [address] 11/28/2024 1:45 PM EDT Office Visit [facility] [address] [place] [address] Rupali Perez, OD [address] [place] [address] 12/30/2024 2:00 PM EST Telemedicine [facility] [address] [place] [address] Isabelle Dia RN [address] [place], [place] [phone] Health Maintenance Due Date Last Done Comments HIV Screening 1980 Diabetes: Foot Exam 11/29/1989 Eye Exam 11/29/1989 Family Planning (PISQ) 11/29/1994 HPV Vaccines (1 - Male 3-dose series) 11/29/1994 Hepatitis C Screening 11/29/1997 Hepatitis A Vaccines (1 of 2 - Risk 2-dose series) 11/29/1998 Pneumococcal Vaccine: Pediatrics (0 to 5 Years) and At-Risk Patients (6 to 49) Years (2 of 2 - PCV) 12/01/2012 12/02/2011, 09/05/2011, 01/25/2000 DTaP/Tdap/Td Vaccines (7 - Td or Tdap) 11/13/2022 11/13/2012, 08/03/2006, 03/30/1990, Additional history exists Influenza Vaccine (#1) 2024 , 02/28/2023, 12/20/2022, Additional history exists Diabetes: Hemoglobin A1C 01/30/2025 025, 08/01/2024, 04/30/2024, Additional history exists Depression Monitoring 01/31/2025 08/01/2024, 025 Alcohol/Substance Use Screening 04/30/2025 04/30/2024 Diabetes: Urine Protein Screening 04/30/2025 04/30/2024, 04/08/2022, 12/09/2020, Additional history exists Lipid Panel 04/30/2025 04/30/2024, 08/0 06/2023, 04/08/2022, Additional history exists SDOH Screening 04/30/2025 04/30/2024 Disability Screening 08/01/2025 08/01/2024 Tobacco Screening 10/31/2025 10/31/2024 Zoster Vaccines (1 of 2) 11/29/2029 RSV Patients and Patients Aged 60 years or older (1 - 1-dose 75+ series) 11/29/2054 IPV Vaccines Completed 11/27/1981, 08/29, 05/30/1980, Additional history exists Hepatitis B Vaccines Completed 12/01/1998, 10/24/1996, 09/25/1996 COVID-19 Vaccine Completed 01/04/2024, 03/2023, 03/22/2022, Additional history exists HIB Vaccines Aged Out [...] complication, without long-term current use of insulin ([facility]) POCT GLUCOSE Routine 10/31/2024 2:29 PM EDT Type 2 diabetes mellitus without complication, without long-term current use of insulin ([facility]) POCT JAKE-14 URINE DRUG SCREEN Routine 09/06/2024 10:16 AM EDT Chronic pain syndrome DRUG MONITOR, COCAINE METAB, QN, URINE Routine 09/06/2024 12:00 AM EDT Long-term current use of opiate analgesic POCT GLYCATED HEMOGLOBIN, TOTAL Routine 08/01/2024 2:08 PM EDT Type 2 diabetes mellitus without complication, without long-term current use of insulin ([facility]) POCT GLUCOSE Routine 08/01/2024 2:05 PM EDT Type 2 diabetes mellitus without complication, without long-term current use of insulin ([facility]) ALBUMIN, RANDOM URINE W/CREATININE Routine 04/30/2024 3:52 PM EST Type 2 diabetes mellitus without complication, without long-term current use of insulin ([facility]) LIPID PANEL, STANDARD Routine 04/30/2024 3:52 PM EST Mixed hyperlipidemia from Last 3 Months or Most Recently Relevant to Health Maintenance Results * (ABNORMAL) POCT JAKE-14 Urine Drug Screen (10/31/2024 3:11 PM EDT) Only the most recent of2 resultswithin the time period is included. THC Positive(A) Negative Cocaine Screen, Urine Negative [...] Urine Negative Negative QC Media Lot # [id number] Lot# Expiration Date Urine Urine specimen obtained by clean catch procedure / Unknown 10/31/2024 3:11 PM EDT Benji Corbin MD POINT OF CARE TEST EN TER/EDIT ORDERABLES Final Result * (ABNORMAL) POCT Hgb A1c (10/31/2024 2:30 PM EDT) Only the most recent of2 resultswithin the time period is included. Pathologist [facility] Hemoglobin A1C 7.0(A) 4.0 - 5.7 % QC Media Lot # [id number] Lot# Expiration Date Blood 10/31/2024 2:30 PM EDT us Benji Corbin MD POINT OF CARE TEST EN TER/EDIT ORDERABLES Final Result * POCT Glucose (10/31/2024 2:29 PM EDT) Only the most recent of2 resultswithin the time period is included. Glucose Blood, POC 120 60 - 200 mg/dL QC Media Lot # [id number] Lot# Expiration Date Blood Capillary blood specimen / Unknown 10/31/2024 2:29 PM EDT us Benji Corbin MD POINT OF CARE TEST EN TER/EDIT ORDERABLES Final Result * Drug Monitoring, Cocaine Metabolite, Quantitative, Urine (09/06/2024 12:00 AM EDT) Benzoylecgonine [address] [facility] Comment:[id number] ng/mL Cocaine Comments SEE NOTE [facility] Comment:NOTES AND COMMENTSTh is drug testing is for medical treatment only. Analysiswas performed as non-forensic testing and these resultsshould be used only by healthcare providers torender diagnosis or treatment, or to monitor progress ofmedical conditions.Cocaine Notes:Benzoylecgonine detected is consistent with the use of thedrug Cocaine.LDT Notes:Confirmation tests were developed and their analyticalperformance characteristics have been determined by [employer]. It has not been cleared orapproved by the FDA. This assay has been validated pursuantto the CLIA regulations and is used for clinical purposes.Healthcare Providers needing Interpretation assistance,please contact us at [phone] ( ) M-F,8am to 10pm ESTPERFORMING SITE:[facility] [employer] [facility], [address] [place] [phone] Shanker Out: TOSIN ARROYO MD, CLIA:[id number] 09/06/2024 09/06/2024 Benji Corbin MD LAB URINE ORDERABLES Final Result Performing Organization Address [facility] Co al Phone Number [facility] [address] [place] [phone] * (ABNORMAL) Albumin, Random Urine W/Creatinine (04/30/2024 3:52 PM EST) Creatinine, Urine 144.57 mg/dL [facility] Microalbumin Urine 78.0 mg/L [facility] Microalbum Creatinine Ratio Ur 53.9(H) <30 ug/mg cr [facility] Comment:Albumin/Creatinine R atio Reference Ranges: Normal: < 30 ug/mg creatinine Microalbuminuria: 30 - 300 ug/mg creatinineClinical Albuminuria: > 300 ug/mg creatinine Urine (Urine, Random) 04/30/2024 3:52 PM EST 04/30/2024 6:26 PM EST Benji Corbin MD LAB URINE ORDERABLES Final Result Performing Organization Address [facility] Co de Phone Number [facility] [address] [place] [phone] * (ABNORMAL) Lipid Panel, Standard (04/30/2024 3:52 PM EST) Triglycerides 141 <150 mg/dL [facility] Comment:Desirable Triglyceri de: less than 150 mg/dLBorderline High Triglyceride 150-199 mg/dLHigh Triglyceride: 200-499 mg/dLVery High Triglyceride: greater than or equal to 5OO mg/dL Cholesterol 198 <200 mg/dL [facility] Comment:Desirable Cholestero l: less than 200 mg/dLBorderline High Cholesterol: 200-239 mg/dLHigh Cholesterol: greater than 239 mg/dL LDL Cholesterol Calculated 124(H) <100 mg/dL [facility] Comment:Desirable LDL: less than 100 [...] Corbin MD LAB BLOOD ORDERABLES Final Result [facility] [address] [place] [phone] from Last 3 Months or Most Recently Relevant to Health Maintenance Insurance [employer] Care Teams Brand Coordinator Relationship Specialty Start Date End Date Benji Hurtado MD [address] [place] [phone] PCP - General Internal Medicine 10/10/13
--- OUTSIDE RECORDS SUMMARY | 2024-10-31 16:43 | XMS_ITS | Encounter Summary ---
Author Organization [employer] Address [address] [place] [address] Care Team Providers Care Supervisor Kosher Dietary Service Name Role Phone Benji Hurtado MD Primary Care Provide r Reason for Visit * Reason Comments Med Refill Encounter Details Date Type Department Care Team (Late st Contact Info) Description 08/20/2024 Refill [facility] [address] [place] [address] Benji Hurtado MD [address] [place] [address] Social History Tobacco Use Types Packs/Day Years [...] Description 11/01/2024 10:00 AM EDT Clinical Support [facility] [address] [place] [address] Isabelle Dia RN [address] [place] [address] 11/28/2024 1:45 PM EDT Office Visit [facility] [address] [place] [address] TarRupali calle, OD [address] [place] [address] 12/30/2024 2:00 PM EST Telemedicine [facility] [address] [place] [address] Isabelle Dia RN [address] [place] [address] documented as of this encounter Visit Diagnoses Not on filedocumented in this encounter Additional Health Concerns Assessment Noted Time PHQ-9 Depression Total Score: 23 025 2:16 PM EDT documented as of this encounter Care Teams Supervisor Kosher Dietary Service Relationship Specialty Start Date End Date Benji Hurtado MD [address] [place] [address] PCP - General Internal Medicine 10/10/13 documented as of this encounter
[2024-10-31 17:23] LABS: Cannabinoid Screen Urine POSITIVE (Not Detect)
== END 2024-10-31 16:21 | disposition home or self-care (01) ==
LOC: HO.HHCLNP 16:20
PROVIDERS: Visit Provider Internal Medicine
DX: G89.4 Chronic pain syndrome (principal)
CPT/HCPCS: 80307

== ENCOUNTER 2024-12-23 15:40 | Outpatient (REF) | payer MEDICAID, SELFPAY ==
--- NOTE | ~2024-12-23 | US_ITS ---
EXAMINATION: US EXTRACRANIAL CAROTID DUPLEX, BILATERAL CLINICAL INFORMATION: Retinal hemorrhage left eye COMPARISON: None available. TECHNIQUE: Real-time ultrasound and Doppler techniques (integrating B-mode 2-D vascular images, Doppler spectral analysis and color-flow Doppler imaging) were utilized to interrogate the extracranial carotid arteries, the vertebral arteries and proximal subclavian arteries bilaterally. The degree of stenosis is determined by criteria similar to NASCET. FINDINGS: Right Side: 1. There is no atherosclerotic plaque seen in the bifurcation/proximal ICA region. 2. The common carotid artery PSV proximally is 127 cm/s and distally 68 cm/s. 3. The proximal internal carotid artery velocities are 108 cm/s systolic and 33 cm/s diastolic. 4. The proximal external carotid artery PSV is 135 cm/s. 5. The vertebral artery shows antegrade flow. 6. The subclavian artery waveforms are triphasic. ICA/CCA ratio = 0.5 Left Side: 1. There is minimal atherosclerotic plaque in the bifurcation/proximal ICA region. 2. The common carotid artery PSV proximally is 100 cm/s and distally 69 cm/s. 3. The proximal internal carotid artery velocities are 62 cm/s systolic and 26 cm/s diastolic. 4. The proximal external carotid artery PSV is 114 cm/s. 5. The vertebral artery shows antegrade flow. 6. The subclavian artery waveforms are triphasic. ICA/CCA ratio 0.62. US/US carotid duplex BI IMPRESSION: 1. RIGHT: No hemodynamically significant stenosis. 2. LEFT: No hemodynamically significant stenosis. 3. There is no change in the category severity of disease when compared to the previous study dated . Electronically signed by: Anthony Little MD 12/23/2024 04:36 PM EDT
--- OUTSIDE RECORDS SUMMARY | 2024-12-23 18:43 | XMS_ITS | Encounter Summary ---
Author Organization [email or web address] Address [address] [place] [address] Care Team Providers Care Motorcycle Engine Assembler Name Role Phone Benji Hurtado MD Primary Care Provide r Reason for Visit * Reason Comments Med Refill Encounter Details Date Type Department Care Team (Late st Contact Info) Description 07/28/2023 Refill [facility] [address] [place] [address] Benji Hurtado MD [address] [place] [address] Primary osteoarthritis of hip, unspecified laterality Social [...] Care Team (Late st Contact Info) Description 12/30/2024 2:00 PM EST Telemedicine [facility] [address] [place] [address] Isabelle Dia RN [address] [place] [address] 02/14/2025 11:30 AM EST Clinical Support [facility] [address] [place] [address] Isabelle Dia RN [address] [place] [address] 03/27/2025 1:30 PM EST Office Visit [facility] [address] [place] [address] Rupali Perez, OD [address] [place] [address] documented as of this encounter Visit Diagnoses Diagnosis Primary osteoarthritis of hip, unspecified laterality documented in this encounter Additional Health Concerns Assessment Noted Time PHQ-9 Depression Total Score: 7 06/01/19 24 1:38 PM EDT documented as of this encounter Care Teams Motorcycle Engine Assembler Relationship Specialty Start Date End Date Benji Hurtado MD [address] [place] [address] PCP - General Internal Medicine 8/14/14 documented as of this encounter
--- OUTSIDE RECORDS SUMMARY | 2024-12-23 18:43 | XMS_ITS | Encounter Summary ---
Author Organization [employer] Address [address] [facility] 7 [place] [address] Care Team Providers Care [employer] Lead Name Role Phone Benji Hurtado MD Primary Care Provide r Reason for Visit * Reason Onset Date Comments Med Refill 09/06/2022 Encounter Details Date Type Department Care Team (Late st Contact Info) Description 09/06/2022 Telephone [facility] [address] [place] [address] Benji Hurtado MD [address] [place] [address] Med Refill Social History Tobacco Use Types [...] Info) Description 12/30/2024 2:00 PM EST Telemedicine [facility] [address] [place] [address] Isabelle Dia RN [address] [place], [place] [phone] 02/14/2025 11:30 AM EST Clinical Support [facility] [address] [place] [address] Isabelle Dia RN [address] [place], [place] [phone] 03/27/2025 1:30 PM EST Office Visit [facility] [address] [place] [address] Tarka, Rupali, OD [address] [place] [address] documented as of this encounter Visit Diagnoses Not on filedocumented in this encounter Additional Health Concerns Assessment Noted Time PHQ-9 Depression Total Score: 9 03/22/19 23 1:26 PM EST documented as of this encounter Care Teams [employer] Lead Relationship Specialty Start Date End Date Benji Hurtado MD [address] [place] [address] PCP - General Internal Medicine 10/10/13 documented as of this encounter
--- OUTSIDE RECORDS SUMMARY | 2024-12-23 18:43 | XMS_ITS | Encounter Summary ---
Author Organization [employer] Address [address] [facility] [address] [place] [address] Care Team Providers Care Hr Recruiter Name Role Phone Benji Hurtado MD Primary Care Provide r Reason for Visit * Reason Comments Med Refill Encounter Details Date Type Department Care Team (Late st Contact Info) Description 07/30/2022 Refill [facility] [address] [place] [address] Dione Martin ANP [address] [place] [address] Social History Tobacco Use Types Packs/Day Years [...] Info) Description 12/30/2024 2:00 PM EST Telemedicine [facility] [address] [place] [address] Isabelle Dia, RN [address] [place] [address] 02/14/2025 11:30 AM EST Clinical Support [facility] [address] [place] [address] Isabelle Dia, RN [address] [place] [address] 03/27/2025 1:30 PM EST Office Visit [facility] [address] [place] [address] Rupali Perez, OD [address] [place] [address] documented as of this encounter Visit Diagnoses Not on filedocumented in this encounter Additional Health Concerns Assessment Noted Time PHQ-9 Depression Total Score: 9 03/22/19 23 1:26 PM EST documented as of this encounter Care Teams Hr Recruiter Relationship Specialty Start Date End Date Benji Hurtado MD [address] [place] [address] PCP - General Internal Medicine 10/10/13 documented as of this encounter
--- OUTSIDE RECORDS SUMMARY | 2024-12-23 18:43 | XMS_ITS | Encounter Summary ---
Author Organization [facility] Address 75 [facility] [address] 7t [place] [address] Care Team Providers Care Stockholder Name Role Phone Benji Hurtado MD Primary Care Provide r Reason for Visit * Reason Comments Med Refill Encounter Details Date Type Department Care Team (Late st Contact Info) Description 12/16/2024 Refill [facility] MEDICINE 230 [place] [address] Benji Hurtado MD 230 [place] [address] Primary osteoarthritis of hip, unspecified laterality Social [...] Info) Description 12/30/2024 2:00 PM EST Telemedicine [facility] CHC MED & PEDS 505 [place] [address] Isabelle Dia RN 505 [place] [address] 02/14/2025 11:30 AM EST Clinical Support [facility] MEDICINE 230 [place] [address] Isabelle Dia RN 505 [place] [address] 03/27/2025 1:30 PM EST Office Visit [facility] OPTOMETRY [address] [place] [address] Rupali Perez, OD 267 [place] [address] documented as of this encounter Visit Diagnoses Diagnosis Primary osteoarthritis of hip, unspecified laterality documented in this encounter Additional Health Concerns Assessment Noted Time PHQ-9 Depression Total Score: 23 025 2:16 PM EDT documented as of this encounter Care Teams Stockholder Relationship Specialty Start Date End Date Benji Hurtado MD 230 [place] [address] PCP - General Internal Medicine 10/10/13 documented as of this encounter
--- OUTSIDE RECORDS SUMMARY | 2024-12-23 18:43 | XMS_ITS | Encounter Summary ---
Author Organization [employer] Address [address] [facility] [address] 7t [place] [address] Care Team Providers Care Salon Supervisor Name Role Phone Benji Hurtado MD Primary Care Provide r Reason for Visit * Reason Onset Date Comments Med Refill 05/31/2024 Encounter Details Date Type Department Care Team (Late st Contact Info) Description 05/31/2024 Refill [facility] MED & PEDS [address] [place] [address] Benji Hurtado MD 230 [place] [address] Chronic pain syndrome; Primary osteoarthritis of hip, [...] Info) Description 12/30/2024 2:00 PM EST Telemedicine [facility] CHC MED & PEDS 505 [place] [address] Isabelle Dia RN 505 [place] [address] 02/14/2025 11:30 AM EST Clinical Support [facility] MEDICINE 230 [place] [address] Isabelle Dia RN 505 [place] [address] 03/27/2025 1:30 PM EST Office Visit [facility] OPTOMETRY 267 [place] [address] Rupali Perez, OD 267 [place] [address] documented as of this encounter Visit Diagnoses Diagnosis Chronic pain syndrome Primary osteoarthritis of hip, unspecified laterality documented in this encounter Additional Health Concerns Assessment Noted Time PHQ-9 Depression Total Score: 7 06/01/19 24 1:38 PM EDT documented as of this encounter Care Teams Salon Supervisor Relationship Specialty Start Date End Date Benji Hurtado MD 230 [place] [address] PCP - General Internal Medicine 10/10/13 documented as of this encounter
--- OUTSIDE RECORDS SUMMARY | 2024-12-23 18:43 | XMS_ITS | Encounter Summary ---
Author Organization [employer] Address [address] [facility] [address] 7t [place] [address] Care Team Providers Care Silk Spreader Name Role Phone Benji Hurtado MD Primary Care Provide r Reason for Visit * Reason Onset Date Comments Med Refill 06/07/2024 Encounter Details Date Type Department Care Team (Late st Contact Info) Description 06/07/2024 Telephone [facility] MEDICINE 230 [place] [address] Benji Hurtado MD 230 [place] [address] Med Refill Social History Tobacco Use Types [...] immediate release tablet To be sent to: [facility] - [place], [place] - [address] [place] [address] documented in this encounter Plan of Treatment Upcoming Encounters Date Type Department Care Team ([facility] st Contact Info) Description 12/30/2024 2:00 PM EST Telemedicine [facility] CHC MED & PEDS 505 [place] [address] Isabelle Dia RN 505 [place] [address] 02/14/2025 11:30 AM EST Clinical Support [facility] MEDICINE 230 [place] [address] Isabelel Dia RN 505 [place] [address] 03/27/2025 1:30 PM EST Office Visit [facility] OPTOMETRY 267 [place] [address] Rupali Perez, OD 267 [place] [address] documented as of this encounter Visit Diagnoses Not on filedocumented in this encounter Additional Health Concerns Assessment Noted Time PHQ-9 Depression Total Score: 7 06/01/19 24 1:38 PM EDT documented as of this encounter Care Teams Silk Spreader Relationship Specialty Start Date End Date Benji Hurtado MD [address] [place] [address] PCP - General Internal Medicine 10/10/13 documented as of this encounter
--- OUTSIDE RECORDS SUMMARY | 2024-12-23 18:43 | XMS_ITS | Encounter Summary ---
Author Organization [employer] Address [address] [facility] [address] 7t [place] [address] Care Team Providers Care Activities Officer Name Role Phone Benji Hurtado MD Primary Care Provide r Reason for Visit * Reason Onset Date Comments Med Refill 12/30/2022 Encounter Details Date Type Department Care Team (Late st Contact Info) Description 12/30/2022 Telephone [facility] MEDICINE 230 [place] [address] Benji Hurtado MD 230 [place], [place] [phone] Med Refill Social History Tobacco Use Types [...] on message above. Please contact pt at [phone] * Telephone Encounter - Jacoby Uribe - 12/30/2022 4:32 PM EDT TC from pt states [facility] pharmacy gave 3 day supply of [...] Info) Description 12/30/2024 2:00 PM EST Telemedicine [facility] MED & PEDS 505 [place] [address] Isabelle Dia MARILUZ 505 [place] [address] 02/14/2025 11:30 AM EST Clinical Support [facility] MEDICINE 230 [place] [address] Isabelle Dia RN 505 [place] [address] 03/27/2025 1:30 PM EST Office Visit [facility] OPTOMETRY 267 [place] [address] Rupali Perez, OD 267 [place] [address] documented as of this encounter Visit Diagnoses Not on filedocumented in this encounter Additional Health Concerns Assessment Noted Time PHQ-9 Depression Total Score: 9 03/22/19 23 1:26 PM EST documented as of this encounter Care Teams Activities Officer Relationship Specialty Start Date End Date Benji Hurtado MD [address] [place] [address] PCP - General Internal Medicine 10/10/13 documented as of this encounter
--- OUTSIDE RECORDS SUMMARY | 2024-12-23 18:43 | XMS_ITS | Encounter Summary ---
Author Organization [employer] Address [address] [facility] [address] 7t [place] [address] Care Team Providers Care Warehouse Hand Name Role Phone Benji Hurtado MD Primary Care Provide r Reason for Visit * Reason Comments Med Refill Encounter Details Date Type Department Care Team (Late st Contact Info) Description 08/20/2024 Refill [facility] MEDICINE 230 [place] [address] Benji Hurtado MD 230 [place] [address] Social History Tobacco Use Types Packs/Day Years [...] Info) Description 12/30/2024 2:00 PM EST Telemedicine [facility] CHC MED & PEDS 505 [place] [address] Isabelle Dia RN 505 [place] [address] 02/14/2025 11:30 AM EST Clinical Support [facility] MEDICINE 230 [place] [address] Isabelle Dia RN 505 [place] [address] 03/27/2025 1:30 PM EST Office Visit [facility] OPTOMETRY 267 [place] [address] Rupali Perez, OD 267 [place] [address] documented as of this encounter Visit Diagnoses Not on filedocumented in this encounter Additional Health Concerns Assessment Noted Time PHQ-9 Depression Total Score: 23 025 2:16 PM EDT documented as of this encounter Care Teams Warehouse Hand Relationship Specialty Start Date End Date Benji Hurtado MD 230 [place] [address] PCP - General Internal Medicine 10/10/13 documented as of this encounter
--- OUTSIDE RECORDS SUMMARY | 2024-12-23 18:43 | XMS_ITS | Encounter Summary ---
Author Organization [employer] Address 75 [facility] 7 [place] [address] Care Team Providers Care Workforce Investment Act Career Manager Name Role Phone Benji Hurtado MD Primary Care Provide r Reason for Visit * Reason Onset Date Comments Med Refill 09/30/2022 Encounter Details Date Type Department Care Team (Late st Contact Info) Description 09/30/2022 Telephone [facility] MEDICINE 230 [place] [address] Benji Hurtado MD 230 [place] [address] Med Refill Social History Tobacco Use Types [...] Info) Description 12/30/2024 2:00 PM EST Telemedicine [facility] CHC MED & PEDS 505 [place] [address] Isabelle Dia RN 505 [place] [address] 02/14/2025 11:30 AM EST Clinical Support [facility] MEDICINE 230 [place] [address] Isabelle Dia RN 505 [place] [address] 03/27/2025 1:30 PM EST Office Visit [facility] OPTOMETRY 267 [place] [address] TarRupali calle, OD 267 [place] [address] documented as of this encounter Visit Diagnoses Not on filedocumented in this encounter Additional Health Concerns Assessment Noted Time PHQ-9 Depression Total Score: 9 03/22/19 23 1:26 PM EST documented as of this encounter Care Teams Workforce Investment Act Career Manager Relationship Specialty Start Date End Date Benji Hurtado MD 230 [place] [address] PCP - General Internal Medicine 10/10/13 documented as of this encounter
--- OUTSIDE RECORDS SUMMARY | 2024-12-23 18:43 | XMS_ITS | Encounter Summary ---
Author Organization [employer] Address [address] [facility] [address] 7t [place] [address] Care Team Providers Care Kindergarten Classroom Teacher Name Role Phone Benji Hurtado MD Primary Care Provide r Reason for Visit * Reason Comments Med Refill Encounter Details Date Type Department Care Team (Late st Contact Info) Description 12/23/2024 Refill [facility] MEDICINE 230 [place] [address] Benji Hurtado MD 230 [place] [address] Type 2 diabetes mellitus without complication, without long-term current use of insulin (HCC) Social History Tobacco Use Types Packs/Day Years [...] Info) Description 12/30/2024 2:00 PM EST Telemedicine [facility] CHC MED & PEDS 505 [place] [address] Isabelle Dia RN 505 [place] [address] 02/14/2025 11:30 AM EST Clinical Support [facility] MEDICINE 230 [place] [address] Isabelle Dia RN 505 [place] [address] 03/27/2025 1:30 PM EST Office Visit [facility] OPTOMETRY 267 [place] [address] Rupali Perez, OD 267 [place] [address] documented as of this encounter Visit Diagnoses Diagnosis Type 2 diabetes mellitus without complication, without long-term current use of insulin (HCC) documented in this encounter Additional Health Concerns Assessment Noted Time PHQ-9 Depression Total Score: 23 025 2:16 PM EDT documented as of this encounter Care Teams Kindergarten Classroom Teacher Relationship Specialty Start Date End Date Benji Hurtado MD 230 [place] [address] PCP - General Internal Medicine 10/10/13 documented as of this encounter
--- OUTSIDE RECORDS SUMMARY | 2024-12-23 18:43 | XMS_ITS | Encounter Summary ---
Author Organization [email or web address] Address 75 [facility] 7t [place] [address] Care Team Providers Care Dispatcher Bus And Trolley Name Role Phone Benji Hurtado MD Primary Care Provide r Reason for Visit * Reason Onset Date Comments Med Refill 07/22/2023 Encounter Details Date Type Department Care Team (Late st Contact Info) Description 07/22/2023 Refill [facility] MEDICINE 230 [place] [address] Benji Hurtado MD 230 [place] [address] Social History Tobacco Use Types Packs/Day Years [...] Info) Description 12/30/2024 2:00 PM EST Telemedicine [facility] CHC MED & PEDS 505 [place] [address] Isabelle Dia RN 505 [place] [address] 02/14/2025 11:30 AM EST Clinical Support [facility] MEDICINE 230 [place] [address] Isabelle Dia RN 505 [place] [address] 03/27/2025 1:30 PM EST Office Visit [facility] OPTOMETRY 267 [place] [address] Rupali Perez, OD 267 [place] [address] documented as of this encounter Visit Diagnoses Not on filedocumented in this encounter Additional Health Concerns Assessment Noted Time PHQ-9 Depression Total Score: 7 06/01/19 24 1:38 PM EDT documented as of this encounter Care Teams Dispatcher Bus And Trolley Relationship Specialty Start Date End Date Benji Hurtado MD 230 [place] [address] PCP - General Internal Medicine 10/10/13 documented as of this encounter
--- OUTSIDE RECORDS SUMMARY | 2024-12-23 18:43 | XMS_ITS | Encounter Summary ---
Author Organization [employer] Address [address] [facility] [address] 7t [place] [address] Care Team Providers Care Loan Analyst Name Role Phone Benji Hurtado MD Primary Care Provide r Reason for Visit * Reason Comments Med Refill Encounter Details Date Type Department Care Team (Late st Contact Info) Description 01/31/2023 Refill [facility] MED & PEDS [address] [place] [address] Benji Hurtado MD 230 [place] [address] Primary osteoarthritis of hip, unspecified laterality Social [...] Info) Description 12/30/2024 2:00 PM EST Telemedicine [facility] CHC MED & PEDS 505 [place] [address] Isabelle Dia RN 505 [place] [address] 02/14/2025 11:30 AM EST Clinical Support [facility] MEDICINE 230 [place] [address] Isabelle Dia RN 505 [place] [address] 03/27/2025 1:30 PM EST Office Visit [facility] OPTOMETRY 267 [place] [address] TarkaRupali, OD 267 [place] [address] documented as of this encounter Visit Diagnoses Diagnosis Primary osteoarthritis of hip, unspecified laterality documented in this encounter Additional Health Concerns Assessment Noted Time PHQ-9 Depression Total Score: 9 03/22/19 23 1:26 PM EST documented as of this encounter Care Teams Loan Analyst Relationship Specialty Start Date End Date Benji Hurtado MD 230 [place] [address] PCP - General Internal Medicine 10/10/13 documented as of this encounter
--- OUTSIDE RECORDS SUMMARY | 2024-12-23 18:43 | XMS_ITS | Encounter Summary ---
Author Organization [employer] Address [address] [facility] [address] 7t [place] [address] Care Team Providers Care Knife Glazer Name Role Phone Benji Hurtado MD Primary Care Provide r Reason for Visit * Reason Onset Date Comments Med Refill 01/17/2024 Encounter Details Date Type Department Care Team (Late st Contact Info) Description 01/17/2024 Telephone [facility] MEDICINE 230 [place] [address] Benji Hurtado MD 230 [place] [address] Med Refill Social History Tobacco Use Types [...] 12 hr tablet To be sent to: [facility] - [place], [place] - [address] [place] [address] documented in this encounter Plan of Treatment Upcoming Encounters Date Type Department Care Team ([facility] st Contact Info) Description 12/30/2024 2:00 PM EST Telemedicine [facility] CHC MED & PEDS 505 [place] [address] Isabelle Dia RN 505 [place] [address] 02/14/2025 11:30 AM EST Clinical Support [facility] MEDICINE 230 [place] [address] Isabelle Dia RN 505 [place] [address] 03/27/2025 1:30 PM EST Office Visit [facility] OPTOMETRY 267 [place] [address] Rupali Perez, OD 267 [place] [address] documented as of this encounter Visit Diagnoses Not on filedocumented in this encounter Additional Health Concerns Assessment Noted Time PHQ-9 Depression Total Score: 7 06/01/19 24 1:38 PM EDT documented as of this encounter Care Teams Knife Glazer Relationship Specialty Start Date End Date Benji Hurtado MD 230 [place] [address] PCP - General Internal Medicine 10/10/13 documented as of this encounter
--- OUTSIDE RECORDS SUMMARY | 2024-12-23 18:43 | XMS_ITS | Encounter Summary ---
Author Organization [employer] Address [address] [facility] [address] 7t [place] [address] Care Team Providers Care Assistant Counsel Name Role Phone Benji Hurtado MD Primary Care Provide r Reason for Visit * Reason Comments Med Refill Encounter Details Date Type Department Care Team (Late st Contact Info) Description 03/01/2023 Refill [facility] MED & PEDS [address] [place] [address] Benji Hurtado MD 230 [place] [address] Primary osteoarthritis of hip, unspecified laterality Social [...] 12/30/2024 2:00 PM EST Telemedicine [facility] CHC MED & PEDS 505 [place] [address] Isabelle Dia RN 505 [place] [address] 02/14/2025 11:30 AM EST Clinical Support [facility] MEDICINE 230 [place] [address] Isabelle Dia RN 505 [place] [address] 03/27/2025 1:30 PM EST Office Visit [facility] OPTOMETRY 267 [place] [address] TarkaRupali, OD 267 [place] [address] documented as of this encounter Visit Diagnoses Diagnosis Primary osteoarthritis of hip, unspecified laterality documented in this encounter Additional Health Concerns Assessment Noted Time PHQ-9 Depression Total Score: 9 03/22/19 23 1:26 PM EST documented as of this encounter Care Teams Assistant Counsel Relationship Specialty Start Date End Date Benji Hurtado MD 230 [place] [address] PCP - General Internal Medicine 10/10/13 documented as of this encounter
--- OUTSIDE RECORDS SUMMARY | 2024-12-23 18:43 | XMS_ITS | Clinical Summary ---
Author Organization [facility] Address 175 [place] [address] Phone Care Team Providers Care Senior Principal Name Role Phone Benji Hugo MD Primary Care Provi alvin Allergies Active Allergy Reactions Criticality Noted Date Comments Aspirin Swelling 12/10/2007 Latex Hives 12/10/2007 Medications FreeStyle Precision Almas Strips test strip use as directed to test blood sugar 5 Active clonazePAM (KlonoPIN) 1 mg tablet TAKE 1 TABLET BY MOUTH ONCE DAILY NEEDED FOR ANXIETY IF no RELIEF from hydroxyzine Active dicyclomine (BENTYL) 20 mg tablet Take 1 tablet (20 mg total) by mouth every 6 (six) hours. Active Trulicity 0.75 mg/0.5 mL pen injector injection INJECT ONE PEN (=0.75MG) SUBCUTANEOUSLY ONCE A WEEK DIRECTED Active FreeStyle Garett 2 Sensor kit USE DIRECTED TO TEST BLOOD SUGAR BEFORE BREAKFAST, BEFORE LUNCH, AND BEFORE SUPPER. CHANGE EVERY 14 DAYS 5 Active hydrOXYzine HCL (ATARAX) 50 mg tablet TAKE 1/2 TO 1 TABLET BY MOUTH TWICE DAILY DIRECTED FOR ANXIETY. TAKE PRIOR TO USE OF NEEDED CLONAZEPAM. Active lisinopriL (PRINIVIL,ZEST RIL) 10 mg tablet Take 1 tablet (10 mg total) by mouth 1 (one) time each day in the morning. Active Vyvanse 60 mg capsule TAKE 1 CAPSULE BY MOUTH EVERY DAY IN THE MORNING WITH FOOD Active mirtazapine (REMERON) 15 mg tablet Take 1 tablet (15 mg total) by mouth. Active naloxone (NARCAN) 4 mg/0.1 mL nasal spray FOR SUSPECTED OPIOID OVERDOSE. SPRAY 0.1mL IN ONE NOSTRIL. REPEAT IN ALTERNATE NOSTRIL 2-3 MINUTES IF NEEDED. SEEK MEDICAL ATTENTION IMMEDIATELY EVEN IF PATIENT RESPONDS. 5 Active omeprazole (PriLOSEC) [address] capsule Take 1 capsule (20 mg total) by mouth 1 (one) time each day before breakfast. 5 Active oxyCODONE (ROXICODONE) 30 mg immediate release tablet Take 1 tablet (30 mg total) by mouth every 12 (twelve) hours if needed for severe pain. Max Daily Amount: 60 mg Active pioglitazone (ACTOS) 15 mg tablet Take 1 tablet (15 mg total) by mouth 1 (one) time each day. 5 Active ammonium lactate (AmLactin) 12 % lotion Apply topically if needed for dry skin. 400 g 5 026 Active Encounters Date Type Department Care Team Description 11/13/2024 10:15 AM EDT Office Visit Orthopedic Surgery - [address] [address] Adolph Whitney, DPM Metatarsalgia of both feet (Primary Dx); Type 2 diabetes mellitus without complications ([facility] V24, [facility] V28); Diabetic mononeuropathy simplex ([facility] V24, [facility] V28); Corns and callosities; Dermatophytosis of nail; Verruca plantaris; Type II diabetes mellitus with peripheral circulatory disorder ([facility] V24, [facility] V28); Follow-up exam; Hammer toe of left foot; Acquired hammer toe of right foot; Pain in toe of left foot [M79.675]; Pain in toe of right foot [M79.674] from Last 3 Months Surgical History Surgery Date Site/Laterality Comments APPENDECTOMY [...] Care Team (Late st Contact Info) Description 01/14/2025 9:45 AM EST Office Visit Orthopedic Surgery - [place] [address] [place] [phone] Adolph Whitney, DPM [address] [place] [phone] Health Maintenance Due Date Last Done Comments Colorectal Cancer Screening: Colonoscopy 1979 Diabetes: Annual GFR (Glomerular Filtration Rate) 1979 Diabetes: Annual Foot Exam 11/29/1989 Diabetes: Annual Retina Eye Exam 11/29/1989 Hepatitis A Vaccines (1 of 2 - Risk 2-dose series) 11/29/1998 HPV Vaccines (1 - 3-dose SCDM series) 11/29/2006 Pneumococcal Vaccine: Pediatrics (0 to 5 Years) and At-Risk Patients (6 to 49 Years) (2 of 2 - PCV) 12/01/2012 12/02/2011, 09/05/2011, 01/25/2000 DTaP,Tdap,and Td Vaccines (8 - Td or Tdap) 11/13/2022 11/13/2012, 08/03/2006, 03/30/1990, Additional history exists HIV Screening 09/26/2023 Hepatitis C Screening 09/26/2023 Social Influencers of Health Screening 09/26/2023 Depression Screening 02/28/2024 Diabetes: Annual Urine Albumin-Creatinine Ratio (uACR) 08/21/2024 Influenza Vaccine (#1) 2024 , 02/28/2023, 12/20/2022, Additional history exists Hypertension/CHF/CAD Annual BMP Blood Test 11/13/2024 Diabetes: Blood Sugar Control Test (HGBA1C) 04/30/2025 10/31/2024 Cholesterol Screening (Lipid Panel) 04/30/2029 04/30/2024 RSV Immunization Adult Patients (1 - 1-dose 75+ series) 11/29/2054 IPV Vaccines Completed 11/27/1981, 08/29, 05/30/1980, Additional history exists MMR Vaccines Completed 09/25/1996, 06/13/1991 Hepatitis B Vaccines Completed 12/01/1998, 10/24/1996, 09/25/1996 [...] to complete this topic RSV Immunization Patients Under 20 months Aged Out No longer eligible based on patient's age to complete this topic Varicella Vaccines Aged Out No longer eligible based on patient's age to complete this topic Procedures Procedure Name Priority Date/Time Associated Diagnosis Comments XR FOOT 3+ VIEWS BILAT Routine 11/13/2024 10:36 AM EDT Follow-up exam from Last 3 Months Results * XR Foot 3+ Views bilat (11/13/2024 10:36 AM EDT) Anatomical Region Laterality Modality Lower Extremities, Foot Bilateral Computed Radiography Narrative 11/13/2024 12:18 PM EDT Right foot 3 views No fracture. No radiopaque foreign joint spaces normal nonweightbearing films Left foot 3 views No fracture. No radiopaque foreign joint spaces normal nonweightbearing films us Adolph Whitney DPM IMG XR PROCEDURES Final R esult from Last 3 Months Insurance MEDICA[place] - [place] Care Teams Senior Principal Relationship Specialty Start Date End Date Benji Hugo MD [address] [place] [address] [place] [phone] PCP - General 03/01/23
--- OUTSIDE RECORDS SUMMARY | 2024-12-23 18:43 | XMS_ITS | Encounter Summary ---
Author Organization [employer] Address [address] [place] [address] Care Team Providers Care Forming Machine Upkeep Mechanic Name Role Phone Benji Hurtado MD Primary Care Provide r Reason for Visit * Reason Onset Date Comments PA 09/21/2023 Encounter Details Date Type Department Care Team (Late st Contact Info) Description 09/21/[address] [facility] [address] [place] [address] Benji Hurtado MD [address] [place], [place] [phone] PA Social History Tobacco Use Types Packs/Day [...] Upcoming Encounters Date Type Department Care Team ([facility] st Contact Info) Description 12/30/2024 2:00 PM EST Telemedicine [facility] [address] [place] [address] Isabelle Dia, MARILUZ [address] [place] [address] 02/14/2025 11:30 AM EST Clinical [address] [facility] [address] [place] [address] Isabelle Dia RN [address] [place] [address] 03/27/2025 1:30 PM EST Office Visit [facility] [address] [place] [address] Rupali Perez, OD [address] [place] [address] documented as of this encounter Visit Diagnoses Not on filedocumented in this encounter Additional Health Concerns Assessment Noted Time PHQ-9 Depression Total Score: 7 06/01/19 24 1:38 PM EDT documented as of this encounter Care Teams Forming Machine Upkeep Mechanic Relationship Specialty Start Date End Date Benji Hurtado MD [address] [place] [address] PCP - General Internal Medicine 10/10/13 documented as of this encounter
--- OUTSIDE RECORDS SUMMARY | 2024-12-23 18:43 | XMS_ITS | Clinical Summary ---
Author Organization [employer] Address [address] [facility] [address] [place] [address] Care Team Providers Care Fashion Editor Name Role Phone Benji Hurtado MD Primary [...] by mouth every 8 (eight) hours. Active tiotropium (Spiriva HandiHaler) 18 MCG inhalation capsule inhale 1 capsule by inhalation route every day 018 Active Continuous Blood Gluc Telephonic Nurse Case Manager (FreeStyle Garett 2 [place]) deviceIndications :Type 2 diabetes mellitus without complication, without long-term current use of insulin (HCC) 1 applicator with breakfast, with lunch, and with evening meal. 1 each 023 Active hydrOXYzine HCl (Atarax) 50 MG tablet [...] mouth Once per day. 30 tablet 2 024 Active Continuous Glucose Sensor (FreeStyle Garett 2 Sensor) miscIndications:T ype 2 diabetes mellitus without complication, without long-term current use of insulin ([facility]) USE DIRECTED TO TEST BLOOD SUGAR BEFORE BREAKFAST, BEFORE LUNCH, AND BEFORE SUPPER. CHANGE EVERY 14 DAYS 2 each Active lisinopril 10 MG tabletIndications :Essential hypertension [...] complication, without long-term current use of insulin ([facility]) Take 1 tablet (15 mg) by mouth Once per day. 30 tablet 11 025 2025 Active Dulaglutide (Trulicity) 1.5 MG/0.5ML solution auto-injectorIndi cations:Type 2 diabetes mellitus without complication, without long-term current use of insulin ([facility]) Inject 1.5 mg under the skin 1 (one) time per week. 0.5 mL 3 025 Active naloxone (Narcan) 4 mg/0.1 mL nasal spray Administer 1 spray (4 mg) into affected nostril(s) if needed for opioid reversal. 2 each 1 Active albuterol (Ventolin HFA) 108 (90 Base) MCG/ACT inhalerIndication s:Moderate persistent asthma without complication INHALE 2 PUFFS BY MOUTH EVERY 4 HOURS 18 g 1 025 Active oxyCODONE (Roxicodone) 30 MG immediate release tabletIndications :Chronic pain syndrome Take 1 tablet (30 mg) by mouth every 12 (twelve) hours if needed for severe pain for up to 28 days. 56 tablet 025 2024 Active oxyCODONE ER (OxyCONTIN) 60 MG 12 hr tabletIndications :Primary osteoarthritis of hip, unspecified laterality Take 1 tablet (60 mg) by mouth every 12 (twelve) hours. Do not crush, chew, or split. 56 tablet 025 Active oxyCODONE (Roxicodone) 30 [...] chew, or split. Do not start before November 15, 2024. 56 tablet 025 2024 Discontinued(R eorder (will not trigger notification to Pharmacy)) Active Problems Problem Noted Date Diagnosed Date Long-term current use of opiate analgesic 2024 Overview (06/05/2024): Medication: Oxycodone ER 60mg BID, oxycodone 30mg BID Indication: OA hips, chronic low back pain, RSD of right foot Last DIALYSIS REGISTERED NURSE Agreement: 07/27/23 Bilateral leg edema 02/28/2023 Assessment [...] initial testing Recurrent major depressive episodes, moderate (C MS/HCC) 04/09/2015 Assessment & Plan (03/22/2022 12:59 PM EST): Pt has a Hx of depression and severe anxiety he is currently seeing a therapist at [facility] ([facility]) and his Psychiatrist is Dr [...] compliance, counseled about weight loss. Morbid obesity (CMS/HCC) 11/12/2012 Assessment & Plan (04/30/2024 3:23 PM EST): Referred to [facility] in the past Patient has been counseled [...] Plan (02/28/2023 1:11 PM EST): Referred to [facility] in the past Patient has been counseled and educated about diet and exercise. 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 patient has [...] Encounters Date Type Department Care Team Description 12/23/2024 Refill [facility] [address] [place] [address] Benji Hurtado MD Type 2 diabetes mellitus without complication, without long-term current use of insulin (HCC) 12/16/2024 Refill [facility] [address] [place] [address] Benji Hurtado MD Primary osteoarthritis of hip, unspecified laterality 12/12/2024 Refill [facility] [address] [place] [address] Benji Hurtado MD Primary osteoarthritis of hip, unspecified laterality 12/06/2024 10:30 AM EDT Clinical Support [facility] [address] [place] [address] Isabelle Dia, table assembler metal pain syndrome (Primary Dx) 12/06/2024 Travel 11/29/2024 Refill [facility] [address] [place], [place] [phone] Benji Hurtado MD Chronic pain syndrome 11/28/2024 1:45 PM EDT Office Visit [facility] [address] [place], [place] [phone] Rupali Perez, DEV Type 2 diabetes mellitus without ophthalmic manifestations (HCC) (Primary Dx); Retinal hemorrhage of left eye; Posterior subcapsular polar senile cataract of right eye; Open angle with borderline findings, low risk, bilateral; Regular astigmatism, bilateral 11/28/2024 Travel 11/13/2024 Refill [facility] [address] [place] [address] Dione Martin ANP Primary osteoarthritis of hip, unspecified laterality 11/10/2024 Refill [facility] [address] [place] [address] Benji Hurtado MD Moderate persistent asthma without complication 11/01/2024 10:00 AM EDT Clinical Support [facility] [address] [place] [address] Isabelle Dia RN Chronic pain syndrome 11/01/2024 Refill [facility] [address] [place] [address] Dione Martin ANP Chronic pain syndrome 11/01/2024 Refill [facility] [address] [place] [address] Isabelle Dia RN 11/01/2024 Travel 10/31/2024 2:00 PM EDT Office Visit [facility] [address] [place] [address] Benji Hurtado MD Chronic pain syndrome (Primary Dx); Type 2 diabetes mellitus without complication, without long-term current use of insulin ([facility]/HCC); Essential hypertension; Mixed hyperlipidemia 10/31/2024 Travel 10/16/2024 Refill [facility] [address] [place] [address] Benji Hurtado MD Primary osteoarthritis of hip, unspecified laterality 10/07/2024 Refill [facility] [address] [place] [address] Benji Hurtado MD Chronic pain syndrome from Last 3 Months Immunizations Immunization Administration [...] Bivalent 03/22/2022 Pfizer Covid-19 Vaccine 12+ 01/04/2024, 4 Pneumococcal Polysaccharide PPSV23 12/02/2011,,01/25/2000 TD (adult), 2 Lf tetanus tox oid, preservative free, adsorbed 08/03/2006,03/30/1990 Tdap 11/13/2012 Family History Medical History Relation Name Comments Diabetes Mother Glaucoma Mother's Sister Relation Name Status Comments Mother Mother's Sister Social History Tobacco Use Types Packs/Day Years [...] Info) Description 12/30/2024 2:00 PM EST Telemedicine [facility] [address] [place] [address] Isabelle Dia, RN [address] [place] [address] 02/14/2025 11:30 AM EST Clinical Support [facility] [address] [place] [address] Isabelle Dia, RN [address] [place] [address] 03/27/2025 1:30 PM EST Office Visit [facility] [address] [place] [address] Rupali Perez, OD [address] [place] [address] Health Maintenance Due Date Last Done Comments CT Colonography 1979 Colonoscopy 1979 Colorectal Cancer Screening 1979 FIT DNA/Cologuard 1979 FIT 1979 FOBT 1980 HIV Screening 1980 Sigmoidoscopy 1979 Diabetes: Foot Exam 11/29/1989 Family Planning (PISQ) 11/29/1994 HPV [...] 04/30/2024 Disability Screening 08/01/2025 08/01/2024 Tobacco Screening 11/28/2025 11/28/2024 Eye Exam 11/28/2026 11/28/2024, 1003/2024, 11/28/2024, Additional history exists Zoster Vaccines (1 of 2) 11/29/2029 RSV [...] Procedure Name Priority Date/Time Associated Diagnosis Comments VASC US CAROTID ARTERY DUPLEX BILATERAL Urgent 12/23/2024 4:07 PM EDT Retinal hemorrhage of left eye POCT JAKE-14 URINE DRUG SCREEN Routine 12/06/2024 10:54 AM EDT Chronic pain syndrome OCT, OPTIC NERVE - OU - BOTH EYES Routine 11/28/2024 4:03 PM EDT Open angle with borderline findings, low risk, bilateral POCT JAKE-14 URINE DRUG SCREEN Routine 11/01/2024 10:48 AM EDT Chronic pain syndrome DRUG MONITOR, PANEL 1, SCREEN, URINE Routine 10/31/2024 3:30 PM EDT Chronic pain syndrome POCT JAKE-14 URINE DRUG SCREEN Routine 10/31/2024 3:11 PM EDT Chronic pain syndrome POCT GLYCATED HEMOGLOBIN, TOTAL Routine 10/31/2024 2:30 PM EDT Type 2 diabetes mellitus without complication, without long-term current use of insulin (CMS/HCC) POCT GLUCOSE Routine 10/31/2024 2:29 PM EDT Type 2 diabetes mellitus without complication, without long-term current use of insulin (CMS/HCC) ALBUMIN, RANDOM URINE W/CREATININE Routine 04/30/2024 3:52 PM EST Type 2 diabetes mellitus without complication, without long-term current use of insulin (CMS/HCC) LIPID PANEL, STANDARD Routine 04/30/2024 3:52 PM EST Mixed hyperlipidemia from Last 3 Months or Most Recently Relevant to Health Maintenance Results * Vascular US carotid artery duplex bilateral (12/23/2024 4:07 PM EDT) 12/23/2024 4:07 PM EDT [facility] - 12/23/2024 4:39 PM EDT [place] [address] Ultrasound Report Signed Patient: Javier Charles MR#: [id number] : 1980 Acct:[id number] Age/Sex: 44 / M ADM Date: 12/23/24 Loc: HO.US Attending Dr: Rupali Perez DO Ordering Physician: Rupali Perez DO Date of Service: 12/23/24 Procedure(s): US carotid duplex BI Accession Number(s): [id number] cc: Benji Hugo MD; Rupali Perez DO Reason for Exam: RETINAL HEMORRHAGE LEFT EYE EXAMINATION: US EXTRACRANIAL CAROTID DUPLEX, BILATERAL CLINICAL INFORMATION: Retinal hemorrhage left eye COMPARISON: None available. TECHNIQUE: Real-time ultrasound and Doppler techniques (integrating B-mode 2-D vascular images, Doppler spectral analysis and color-flow Doppler imaging) were utilized to interrogate the extracranial carotid arteries, the vertebral arteries and proximal subclavian arteries bilaterally. The degree of stenosis is determined by criteria similar to NASCET. FINDINGS: Right Side: 1. There is no atherosclerotic plaque seen in the bifurcation/proximal ICA region. 2. The common carotid artery PSV proximally is 127 cm/s and distally 68 cm/s. 3. The proximal internal carotid artery velocities are 108 cm/s systolic and 33 cm/s diastolic. 4. The proximal external carotid artery PSV is 135 cm/s. 5. The vertebral artery shows antegrade flow. 6. The subclavian artery waveforms are triphasic. ICA/CCA ratio = 0.5 Left Side: 1. There is minimal atherosclerotic plaque in the bifurcation/proximal ICA region. 2. The common carotid artery PSV proximally is 100 cm/s and distally 69 cm/s. 3. The proximal internal carotid artery velocities are 62 cm/s systolic and 26 cm/s diastolic. 4. The proximal external carotid artery PSV is 114 cm/s. 5. The vertebral artery shows antegrade flow. 6. The subclavian artery waveforms are triphasic. ICA/CCA ratio 0.62. US/US carotid duplex BI IMPRESSION: 1. RIGHT: No hemodynamically significant stenosis. 2. LEFT: No hemodynamically significant stenosis. 3. There is no change in the category severity of disease when compared to the previous study dated . Electronically signed by: Anthony Little MD 12/23/2024 04:36 PM EDT Dictated By: Anthony Little MD Signed By: <Electronically signed by Anthony Little MD in OV> 12/23/24 1636 DD/ 1607 TD/TT: 12/23/24 1622 Music Library Assistant: Procedure Note Donotuseinterpreter, Image - 12/23/[address] [address] Ultrasound Report Signed Patient: Javier Charles JMR#: [id number] : 1980Acct:[id number] Age/Sex: 44 / MADM Date: 12/23/24 Loc: HO.US Attending Dr: Rupali Perez DO Ordering Physician: Rupali Perez DO Date of Service: 12/23/24 Procedure(s): US carotid duplex BI Accession Number(s): [id number] cc: Benji Hugo MD; Rupali Perez DO Reason for Exam: RETINAL HEMORRHAGE LEFT EYE EXAMINATION: US EXTRACRANIAL CAROTID DUPLEX, BILATERAL CLINICAL INFORMATION: Retinal hemorrhage left eye COMPARISON: None available. TECHNIQUE: Real-time ultrasound and Doppler techniques (integrating B-mode 2-D vascular images, Doppler spectral analysis and color-flow Doppler imaging) were utilized to interrogate the extracranial carotid arteries, the vertebral arteries and proximal subclavian arteries bilaterally. The degree of stenosis is determined by criteria similar to NASCET. FINDINGS: Right Side: 1. There is no atherosclerotic plaque seen in the bifurcation/proximal ICA region. 2. The common carotid artery PSV proximally is 127 cm/s and distally 68 cm/s. 3. The proximal internal carotid artery velocities are 108 cm/s systolic and 33 cm/s diastolic. 4. The proximal external carotid artery PSV is 135 cm/s. 5. The vertebral artery shows antegrade flow. 6. The subclavian artery waveforms are triphasic. ICA/CCA ratio = 0.5 Left Side: 1. There is minimal atherosclerotic plaque in the bifurcation/proximal ICA region. 2. The common carotid artery PSV proximally is 100 cm/s and distally 69 cm/s. 3. The proximal internal carotid artery velocities are 62 cm/s systolic and 26 cm/s diastolic. 4. The proximal external carotid artery PSV is 114 cm/s. 5. The vertebral artery shows antegrade flow. 6. The subclavian artery waveforms are triphasic. ICA/CCA ratio 0.62. US/US carotid duplex BI IMPRESSION: 1. RIGHT: No hemodynamically significant stenosis. 2. LEFT: No hemodynamically significant stenosis. 3. There is no change in the category severity of disease when compared to the previous study dated . Electronically signed by: Anthony Little MD 12/23/2024 04:36 PM EDT Dictated By: Anthony Little MD Signed By: <Electronically signed by Anthony Little MD in OV> 12/23/24 1636 DD/ 1607 TD/TT: 12/23/24 1622 Music Library Assistant: us Rupali Perez OD CV VASCULAR PROCEDURES Final Re sult [facility] [address] [place] [address] * (ABNORMAL) POCT JAKE-14 Urine Drug Screen (12/06/2024 10:54 AM EDT) Only the most recent of3 resultswithin the time period is included. THC Positive(A) Negative Cocaine Screen, Urine Negative Negative Opiate Screen, Urine Negative Negative Methamphetamine Screen Urine Negative Negative Amphetamine Screen, Urine Positive(A) Negative Comment:Rx Benzodiazepines Screen, Urine Negative Negative Barbiturate Screen, Urine Negative Negative Methadone Screen, Urine Negative Negative Buprenophine Screen, Urine Negative Negative TCA, Urine Negative Negative MDMA Urine Negative Negative ng/mL Oxycodone Screen, Urine Positive(A) Negative Comment:Rx Phencyclidine (PCP), Urine Negative Negative Propoxyphene, Urine Negative Negative Fentanyl, Urine Negative Negative Urine Urine specimen obtained by clean catch procedure / Unknown 12/06/2024 10:54 AM EDT Benji Corbin MD POINT OF CARE TEST EN TER/EDIT ORDERABLES Final Result * OCT, Optic Nerve - OU - Both Eyes (11/28/2024 4:03 PM EDT) Narrative Rupali Perez, OD - 11/28/2024 4:03 PM EDT Images from the original result were not included. OCT GLAUCOMA INTERPRETATION Reliability : OD: SS 29 - poor quality scan OS: SS 42 - adequate quality scan Measurements RNFL: Avg RNFL thickness OD: 91 microns OS: 90 microns Test findings RNFL: RNFL OD: Megalopapilla (3.03mm2 disc size). Thin temporal quadrant, borderline thin inferior quadrant. Baseline. RNFL OS: Megalopapilla (3.25mm2 disc size). Thin temporal quadrant, borderline thin inferior quadrant. Baseline. Test findings GCL: GCL OD: Borderline thin ganglion cell layer (GCL) inferior. Baseline. GCL OS: Borderline thin ganglion cell layer (GCL) inferior temporal and superior nasal. Baseline. Impression and Plan: RTC in 3 months for intraocular pressure (IOP) check and baseline VF us Rupali Perez OD OPHTH TOMOGRAPHY Final Result * (ABNORMAL) Drug Monitoring, Panel 1, Screen, Urine (10/31/2024 3:30 PM EDT) Opiate Screen Urine POSITIVE(A) Not Detect [facility] Comment:Opiate cut-off is 30 0 ng/mL.Positive results are unconfirmed and should not be used fornon-medical purposes. Barbiturates, Urine Not Detected Not Detect [facility] Comment:Barbiturate cut-off is 200 ng/mL.Positive results are unconfirmed and should not be used fornon-medical purposes. Phencyclidine Screen Urine Not Detected Not Detect [facility] Comment:Phencyclidine cut-of f is 25 ng/mL.Positive results are unconfirmed and should not be used fornon-medical purposes. Amphetamine Screen Urine POSITIVE(A) Not Detect [facility] Comment:Amphetamine cut-off is 1000 ng/mL.Positive results are unconfirmed and should not be used fornon-medical purposes. Benzodiazepines Screen Urine Not Detected Not Detect [facility] Comment:Benzodiazepine cut-o ff is 200 ng/mL.Positive results are unconfirmed and should not be used fornon-medical purposes. Cocaine Screen Urine Not Detected Not Detect [facility] Comment:Cocaine cut-off is 3 00 ng/mL.Positive results are unconfirmed and should not be used fornon-medical purposes. Cannabinoid Screen Urine POSITIVE(A) Not Detect [facility] Comment:Cannabinoid cut-off is 50 ng/mL.Positive results are unconfirmed and should not be used fornon-medical purposes. Methadone Screen, Urine Not Detected Not Detect ng/mL [facility] Comment:Methadone cut-off is 300 ng/mL.Positive results are unconfirmed and should not be used fornon-medical purposes. FENTANYL URINE Not Detected Not Detect [facility] Comment:Fentanyl cut-off is 1 ng/mL.Positive results are unconfirmed and should not be used fornon-medical purposes. Oxycodone Urine Screen Positive(A) Not Detect ng/mL [facility] Comment:Oxycodone cut-off is 100 ng/mL.Positive results are unconfirmed and should not be used fornon-medical purposes. Buprenorphine Screen Not Detected Not Detect ng/mL [facility] Comment:Buprenorphine cut-of f is 5 ng/mL.Positive results are unconfirmed and should not be used fornon-medical purposes. Urine (Urine, Random) 10/31/2024 3:30 PM EDT 10/31/2024 4:20 PM EDT us Benji Corbin MD LAB URINE ORDERABLES Final Result [facility] [address] [place] [phone] * (ABNORMAL) POCT Hgb A1c (10/31/2024 2:30 PM EDT) Hemoglobin A1C 7.0(A) 4.0 - 5.7 % QC Media Lot # [id number] Lot# Expiration Date [id number] Blood 10/31/2024 2:30 PM EDT us Benji Corbin MD POINT OF CARE TEST EN TER/EDIT ORDERABLES Final Result * POCT Glucose (10/31/2024 2:29 PM EDT) Glucose Blood, POC 120 60 - 200 mg/dL QC Media Lot # [id number] Lot# Expiration Date [id number] Blood Capillary blood specimen / Unknown 10/31/2024 2:29 PM EDT us Benji Corbin MD POINT OF CARE TEST EN TER/EDIT ORDERABLES Final Result * (ABNORMAL) Albumin, Random Urine W/Creatinine (04/30/2024 3:52 PM EST) Creatinine, Urine 144.57 mg/dL [facility] Microalbumin Urine 78.0 mg/L H [facility] Microalbum Creatinine Ratio Ur 53.9(H) <30 ug/mg cr [facility] Comment:Albumin/Creatinine R at Reference Ranges: Normal: < 30 ug/mg creatinine Microalbuminuria: 30 - 300 ug/mg creatinineClinical Albuminuria: > 300 ug/mg creatinine Urine (Urine, Random) 04/30/2024 3:52 PM EST 04/30/2024 6:26 PM EST us Benji Corbin MD LAB URINE ORDERABLES Final Result [facility] [address] [place] [phone] * (ABNORMAL) Lipid Panel, Standard (04/30/2024 3:52 PM EST) Triglycerides 141 <150 mg/dL [facility] Comment:Desirable Triglyceri de: less than 150 mg/dLBorderline High Triglyceride 150-199 mg/dLHigh Triglyceride: 200-499 mg/dLVery High Triglyceride: greater than or equal to 5OO mg/dL Cholesterol 198 <200 mg/dL [facility] Comment:Desirable Cholestero l: less than 200 mg/dLBorderline High Cholesterol: 200-239 mg/dLHigh Cholesterol: greater than 239 mg/dL LDL Cholesterol Calculated 124(H) <100 mg/dL [facility] Comment:Desirable LDL: less than 100 mg/dLNear Optimal/Above Optimal LDL: 110- 129 mg/dLBorderline High LDL: 130-159 mg/dLHigh LDL: 160-189 mg/dLVery High LDL: greater than or equal to 190 mg/dL HDL Cholesterol 46 >40 mg/dL [facility] Comment:Desirable HDL: great er than 40 mg/dL Note: This HDL assay may give artificially low results in patients with liver disease. Blood Venous blood specimen / Unknown 04/30/2024 3:52 PM EST 04/30/2024 6:15 PM EST Benji Corbin MD LAB BLOOD ORDERABLES Final Result [facility] [address] [place], [place] [phone] from Last 3 Months or Most Recently Relevant to Health Maintenance Insurance [employer] Care Teams Fashion Editor Relationship Specialty Start Date End Date Benji Hurtado MD [address] [place] [address] PCP - General Internal Medicine 10/10/13
--- OUTSIDE RECORDS SUMMARY | 2024-12-23 18:43 | XMS_ITS | Encounter Summary ---
Author Organization [employer] Address [address] 7t [place] [address] Care Team Providers Care Ladies Attendant Name Role Phone Benji Hurtado MD Primary Care Provide r Reason for Visit * Reason Onset Date Comments Medication Question 03/14/2024 Encounter Details Date Type Department Care Team ([facility] st Contact Info) Description 03/14/2024 Telephone [facility] MEDICINE [address] [place] [address] Benji Huratdo MD [address] [place], [place] [phone] Medication Question Social History Tobacco Use Types [...] Info) Description 12/30/2024 2:00 PM EST Telemedicine [facility] CHC MED & PEDS 505 [place] [address] Isabelle Dia RN 505 [place] [address] 02/14/2025 11:30 AM EST Clinical Support [facility] MEDICINE [address] [place] [address] Isabelle Dia RN 505 [place] [address] 03/27/2025 1:30 PM EST Office Visit [facility] OPTOMETRY [address] [place] [address] Rupali Perez, OD 267 [place] [address] documented as of this encounter Visit Diagnoses Not on filedocumented in this encounter Additional Health Concerns Assessment Noted Time PHQ-9 Depression Total Score: 7 06/01/19 24 1:38 PM EDT documented as of this encounter Care Teams Ladies Attendant Relationship Specialty Start Date End Date Benji Hurtado MD [address] [place] [address] PCP - General Internal Medicine 10/10/13 documented as of this encounter
--- OUTSIDE RECORDS SUMMARY | 2024-12-23 18:43 | XMS_ITS | Encounter Summary ---
Author Organization [employer] Address [address] 7[address] [place] [address] Care Team Providers Care Weight Reduction Specialist Name Role Phone Benji Hurtado MD Primary Care Provide r Reason for Visit * Reason Onset Date Comments Appointment Request 01/17/2023 Encounter Details Date Type Department Care Team ([facility] st Contact Info) Description 01/17/2023 Telephone [facility] MEDICINE 230 [place] [address] Benji Hurtado MD 230 [place], [place] [phone] Appointment Request Social History Tobacco Use Types [...] due to transportation. Please contact pt at [phone] documented in this encounter Plan of Treatment Upcoming Encounters Date Type Department Care Team (Late st Contact Info) Description 12/30/2024 2:00 PM EST Telemedicine [facility] CHC MED & PEDS 505 [place] [address] Isabelle Dia RN 505 [place] [address] 02/14/2025 11:30 AM EST Clinical Support [facility] MEDICINE [address] [place] [address] Isabelle Dia RN 505 [place] [address] 03/27/2025 1:30 PM EST Office Visit [facility] OPTOMETRY [address] [place] [address] Rupali Perez, OD [address] [place] [address] documented as of this encounter Visit Diagnoses Not on filedocumented in this encounter Additional Health Concerns Assessment Noted Time PHQ-9 Depression Total Score: 9 03/22/19 23 1:26 PM EST documented as of this encounter Care Teams Weight Reduction Specialist Relationship Specialty Start Date End Date Benji Hurtado MD 230 [place] [address] PCP - General Internal Medicine 10/10/13 documented as of this encounter
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
--- OUTSIDE RECORDS SUMMARY | 2024-12-23 18:43 | XMS_ITS | Encounter Summary ---
Author Organization [employer] Address [address] 7 [place] [address] Care Team Providers Care Dry Wall Sprayer Name Role Phone Benji Hurtado MD Primary Care Provide r Reason for Visit * Reason Onset Date Comments Med Refill 02/18/2022 Encounter Details Date Type Department Care Team (Late st Contact Info) Description 02/18/2022 Refill [facility] MEDICINE [address] [place] [address] Benji Hurtado MD 230 [place] [address] Social History Tobacco Use Types Packs/Day Years [...] Info) Description 12/30/2024 2:00 PM EST Telemedicine [facility]C MED & PEDS 505 [place] [address] Isabelle Dia RN 505 [place] [address] 02/14/2025 11:30 AM EST Clinical Support [facility] MEDICINE [address] [place] [address] Isabelle Dia RN 505 [place] [address] 03/27/2025 1:30 PM EST Office Visit [facility] OPTOMETRY [address] [place] [address] Rupali Perez, OD 267 [place] [address] documented as of this encounter Visit Diagnoses Not on filedocumented in this encounter Care Teams Dry Wall Sprayer Relationship Specialty Start Date End Date Benji Hurtado MD [address] [place] [address] PCP - General Internal Medicine 10/10/13 documented as of this encounter
--- OUTSIDE RECORDS SUMMARY | 2024-12-23 18:43 | XMS_ITS | Encounter Summary ---
Author Organization [employer] Address [address] 7[address] [place] [address] Care Team Providers Care [place] Crater Name Role Phone Benji Hurtado MD Primary Care Provide r Reason for Visit * Reason Onset Date Comments Prior Authorization 05/09/2023 Encounter Details Date Type Department Care Team ([facility] st Contact Info) Description 05/09/2023 Telephone [facility] MEDICINE [address] [place] [address] Benji Hurtado MD [address] [place] [address] Prior Authorization Social History Tobacco Use Types [...] SIGNATURE. ONCE SIGNED WILL BE FAXED TO [facility] FOR APPROVAL AND SCAN TO MEDIA. * Telephone Encounter - Esther Reis - 05/09/2023 12:35 PM EDT TC from Dustin from [facility] requesting a urgent call back regarding 2 medications . Would like to know if pt should be on both meds . oxyCODONE (Roxicodone) 30 MG immediate release tablet oxyCODONE ER (OxyCONTIN) 60 MG 12 hr tablet documented in this encounter Plan of Treatment Upcoming Encounters Date Type Department Care Team (Late st Contact Info) Description 12/30/2024 2:00 PM EST Telemedicine [facility] CHC MED & PEDS 505 [place] [address] Isabelle Dia RN 505 [place] [address] 02/14/2025 11:30 AM EST Clinical Support [facility] MEDICINE [address] [place] [address] Isabelle Dia RN 505 [place] [address] 03/27/2025 1:30 PM EST Office Visit [facility] OPTOMETRY [address] [place], [place] [phone] Rupali Perez, OD [address] [place] [address] documented as of this encounter Visit Diagnoses Not on filedocumented in this encounter Additional Health Concerns Assessment Noted Time PHQ-9 Depression Total Score: 9 03/22/19 23 1:26 PM EST documented as of this encounter Care Teams [place] Crater Relationship Specialty Start Date End Date Benji Hurtado MD 230 [place] [address] PCP - General Internal Medicine 10/10/13 documented as of this encounter
--- OUTSIDE RECORDS SUMMARY | 2024-12-23 18:43 | XMS_ITS | Encounter Summary ---
Author Organization [employer] Address [address] [facility] 7t [place] [address] Care Team Providers Care Lay Out Machine Operator Name Role Phone Benji Hurtado MD Primary Care Provide r Reason for Visit * Reason Comments Med Refill Encounter Details Date Type Department Care Team (Late st Contact Info) Description 06/15/2022 Refill [facility] MEDICINE [address] [place] [address] Benji Hurtado MD [address] [place] [address] Primary osteoarthritis of hip, unspecified laterality Social [...] Info) Description 12/30/2024 2:00 PM EST Telemedicine [facility] CHC MED & PEDS 505 [place] [address] Isabelle Dia RN 505 [place] [address] 02/14/2025 11:30 AM EST Clinical Support [facility] MEDICINE [address] [place] [address] Isabelle Dia RN 505 [place] [address] 03/27/2025 1:30 PM EST Office Visit [facility] OPTOMETRY [address] [place] [address] Rupali Perez, OD [address] [place] [address] documented as of this encounter Visit Diagnoses Diagnosis Primary osteoarthritis of hip, unspecified laterality documented in this encounter Additional Health Concerns Assessment Noted Time PHQ-9 Depression Total Score: 9 03/22/19 23 1:26 PM EST documented as of this encounter Care Teams Lay Out Machine Operator Relationship Specialty Start Date End Date Benji Hurtado MD [address] [place] [address] PCP - General Internal Medicine 10/10/13 documented as of this encounter
--- OUTSIDE RECORDS SUMMARY | 2024-12-23 18:43 | XMS_ITS | Encounter Summary ---
Author Organization [employer] Address [address] 7[address] [place] [address] Care Team Providers Care Spoke Maker Name Role Phone Benji Hurtado MD Primary Care Provide r Reason for Visit * Reason Comments Med Refill Encounter Details Date Type Department Care Team (Late st Contact Info) Description 02/02/2023 Refill [facility] MED & PEDS [address] [place] [address] Benji Hurtado MD 230 [place] [address] Primary osteoarthritis of hip, unspecified laterality Social [...] 12/30/2024 2:00 PM EST Telemedicine [facility] CHC MED & PEDS 505 [place] [address] Isabelle Dia RN 505 [place] [address] 02/14/2025 11:30 AM EST Clinical Support [facility] MEDICINE 230 [place] [address] Isabelle Dia RN 505 [place] [address] 03/27/2025 1:30 PM EST Office Visit [facility] OPTOMETRY [address] [place] [address] TarkaRupali, OD [address] [place] [address] documented as of this encounter Visit Diagnoses Diagnosis Primary osteoarthritis of hip, unspecified laterality documented in this encounter Additional Health Concerns Assessment Noted Time PHQ-9 Depression Total Score: 9 03/22/19 23 1:26 PM EST documented as of this encounter Care Teams Spoke Maker Relationship Specialty Start Date End Date Benji Hurtado MD 230 [place] [address] PCP - General Internal Medicine 10/10/13 documented as of this encounter
--- OUTSIDE RECORDS SUMMARY | 2024-12-23 18:43 | XMS_ITS | Encounter Summary ---
Author Organization [employer] Address [address] [facility] 7 [place] [address] Care Team Providers Care Salvage Engineer Name Role Phone Benji Hurtado MD Primary Care Provide r Reason for Visit * Reason Onset Date Comments Med Refill 06/10/2022 Encounter Details Date Type Department Care Team (Late st Contact Info) Description 06/10/2022 Telephone [facility] MEDICINE [address] [place] [address] Benji Hurtado MD 230 [place] [address] Med Refill Social History Tobacco Use Types [...] MG 12 hr tablet Please sent to [facility] - [place], [place] - [address] [facility] documented in this encounter Plan of Treatment Upcoming Encounters Date Type Department Care Team (Late st Contact Info) Description 12/30/2024 2:00 PM EST Telemedicine [facility] MED & PEDS [address] [place] [address] Isabelle Dia RN 505 [place] [address] 02/14/2025 11:30 AM EST Clinical Support [facility] MEDICINE [address] [place] [address] Isabelle Dia RN 505 [place] [address] 03/27/2025 1:30 PM EST Office Visit [facility] OPTOMETRY [address] [place] [address] TarRupali calle, OD [address] [place] [address] documented as of this encounter Visit Diagnoses Not on filedocumented in this encounter Additional Health Concerns Assessment Noted Time PHQ-9 Depression Total Score: 9 03/22/19 23 1:26 PM EST documented as of this encounter Care Teams Salvage Engineer Relationship Specialty Start Date End Date Benji Hurtado MD [address] [place] [address] PCP - General Internal Medicine 10/10/13 documented as of this encounter
--- OUTSIDE RECORDS SUMMARY | 2024-12-23 18:43 | XMS_ITS | Encounter Summary ---
Author Organization [employer] Address [address] 7t [place] [address] Care Team Providers Care Kieselguhr Regenerator Operator Name Role Phone Benji Hurtado MD Primary Care Provide r Reason for Visit * Reason Onset Date Comments Med Refill 07/08/2024 Encounter Details Date Type Department Care Team (Late st Contact Info) Description 07/08/[address] [facility] MEDICINE [address] [place] [address] Benji Hurtado MD [address] [place] [address] Med Refill Social History Tobacco Use Types [...] immediate release tablet To be sent to: [facility] documented in this encounter Plan of Treatment Upcoming Encounters Date Type Department Care Team (Late st Contact Info) Description 12/30/2024 2:[address] [facility] CHC MED & PEDS [address] [place], [place] [phone] Isabelle Dia RN 505 [place] [address] 02/14/2025 11:30 AM EST Clinical Support [facility] MEDICINE [address] [place] [address] Isabelle Dia RN 505 [place], [place] 03/27/2025 1:30 PM EST Office Visit [facility] OPTOMETRY [address] [place], [place] [phone] Rupali Perez, OD [address] [place], [place] documented as of this encounter Visit Diagnoses Not on filedocumented in this encounter Additional Health Concerns Assessment Noted Time PHQ-9 Depression Total Score: 7 06/01/19 24 1:38 PM EDT documented as of this encounter Care Teams Kieselguhr Regenerator Operator Relationship Specialty Start Date End Date Benji Hurtado MD [address] [place] [address] [place] [address] PCP - General Internal Medicine 10/10/13 documented as of this encounter
== END 2024-12-23 15:41 | disposition home or self-care (01) ==
LOC: HO.US 15:40
PROVIDERS: PCP Internal Medicine; Visit Provider Optometrist
DX: H35.62 Retinal hemorrhage, left eye (principal)
CPT/HCPCS: 93880

== ENCOUNTER → 2024-12-23 16:07 | Outpatient (BNV) | payer MEDICAID, SELFPAY | PROVIDERS: PCP Internal Medicine; Visit Provider Radiology Diagnostic Radiology | DX: H35.62 Retinal hemorrhage, left eye (principal) | CPT/HCPCS: 93880 ==